=== PATIENT | male | born 1965 | race Caucasian/White ===

== ENCOUNTER → 2017-01-03 | Outpatient (CLI) | payer BC ==
--- NOTE | 2017-01-03 12:44 | DIAGNOSTIC IMAGING REPORT ---
ABD/PELVIS WITHOUT FOR STONE CT DOSE: 988.49 mGycm HISTORY: Flank pain ACUTE LEFT FLANK PAIN, GROSS HEMATURIA TECHNIQUE: Multiaxial CT images of the abdomen and pelvis were performed without the use of intravenous and oral contrast according to the standard department stone protocol. A dose lowering technique was utilized adhering to the principles of ALARA. COMPARISON STUDY: None. FINDINGS: Lung bases are clear. Liver spleen and pancreas appear unremarkable. Gallstones and sludge occupying the gallbladder lumen. Right kidney is negative for calcification or hydronephrosis. There is a small exophytic cyst measuring 6 mm posterior aspect lower pole right kidney. Left kidney shows mild fullness of the renal collecting system with a trace amount of perinephric infiltrative change. Mild fullness of the left ureter which extends to the left ureterovesical junction. There is a 1.5 mm calcification at the mid sacral level of the left ureter best seen image 137. There are at least 2 additional calcifications at and are slightly proximal to the left ureterovesical junction. These measure 3 and 2.5 mm respectively. A third calcification measuring 4 mm potentially is at the ureterovesical junction. No additional bladder calcifications are identified. The bowel pattern within the abdomen and pelvis is nonobstructive. There is a component of mild chronic sigmoid diverticulosis. There is no evidence for acute diverticulitis. IMPRESSION: 1. Several partial obstructing calcifications distal left ureter. 2. 3 calcifications are identified at the left ureteropelvic junction with a small fourth calcification at the distal left ureter at the mid sacral level. 3. Mild left hydroureteronephrosis. 4. Incidental note is made of gallstones and sludge within the gallbladder lumen. 5. Chronic sigmoid diverticulosis. The above report was generated using voice recognition software. It may contain grammatical, syntax or spelling errors. Electronically signed by: Dante Keys M.D. 01/03/2017 12:42 PM Dictated Date/Time: 01/03/2017 12:36 PM
== END | disposition home or self-care (01) ==
LOC: C.CTS 11:40
PROVIDERS: ATTEND Physician Assistant
DX: R10.30 Lower abdominal pain, unspecified (principal); R31.9 Hematuria, unspecified

== ENCOUNTER → 2017-01-05 | Outpatient (CLI) | payer BC ==
[2017-01-05 11:03] LABS: BLOOD UREA NITROGEN 21 mg/dl (7-18); BUN/CREATININE RATIO 17.1 (10-20); CALCIUM 9.6 mg/dl (8.5-10.1); CARBON DIOXIDE 28 mmol/L (21-32); CHLORIDE 112 mmol/L (98-107); GLUCOSE 84 mg/dl (70-99); POTASSIUM 4.3 mmol/L (3.5-5.1); SODIUM 143 mmol/L (136-145)
== END | disposition home or self-care (01) ==
LOC: C.LABBC 09:22
PROVIDERS: ATTEND Physician Assistant
DX: N20.0 Calculus of kidney (principal)

== ENCOUNTER → 2017-01-23 | Outpatient (CLI) | payer BC ==
--- NOTE | 2017-01-23 14:33 | DIAGNOSTIC IMAGING REPORT ---
ULTRASOUND KIDNEYS AND BLADDER CLINICAL HISTORY: Nephrolithiasis. COMPARISON STUDY: Abdominal CT dated 01/03/2017. TECHNIQUE: Real-time, grayscale, and color flow sonography of the kidneys and bladder is performed. Images are reviewed in the transverse and longitudinal planes. FINDINGS: Kidneys: The kidneys demonstrate mild cortical atrophy. The right kidney measures 10.3 x 5.5 x 6.4 cm and the left kidney measures 11.0 x 5.4 x 5.4 cm. There is no hydronephrosis. No shadowing renal calculi are identified. A 7 mm cyst is noted on the right. There is no sonographic evidence of solid renal mass lesion. No perinephric fluid is identified. Bladder: The bladder is decompressed and grossly unremarkable. Bilateral ureteral jets were seen. IMPRESSION: 1. The kidneys demonstrate mild cortical atrophy and are without hydronephrosis. Left-sided hydronephrosis has resolved from the 01/03/2017 examination. 2. No shadowing renal calculi are identified. 3. The bladder was decompressed and is grossly unremarkable. Electronically signed by: Robert Whitfield M.D. 01/23/2017 2:31 PM Dictated Date/Time: 01/23/2017 2:02 PM
== END | disposition home or self-care (01) ==
LOC: C.ULTRBC 13:37
PROVIDERS: ATTEND Urology
DX: N20.0 Calculus of kidney (principal)

== ENCOUNTER → 2017-04-19 | Outpatient (CLI) | payer BC ==
--- NOTE | 2017-04-19 10:06 | DIAGNOSTIC IMAGING REPORT ---
KUB CLINICAL HISTORY: N20.0 [id number] nephrocalcinosis COMPARISON STUDY: CT dated 01/03/2017 FINDINGS: The soft tissues, psoas shadows, renal outlines and intestinal gas pattern appear normal. There is no evidence for bowel obstruction. No abnormal abdominal calcifications are seen. Calcifications previously described at the left ureteropelvic junction are not identified currently. IMPRESSION: No significant nephrocalcinosis currently. 2. The 3 calcifications previously described at the left ureteropelvic junction are not identified on this study The above report was generated using voice recognition software. It may contain grammatical, syntax or spelling errors. Electronically signed by: Dante Keys M.D. 04/19/2017 10:05 AM Dictated Date/Time: 04/19/2017 9:59 AM
--- NOTE | 2017-04-19 10:26 | DIAGNOSTIC IMAGING REPORT ---
ULTRASOUND KIDNEYS AND BLADDER CLINICAL HISTORY: Nephrolithiasis. COMPARISON STUDY: Abdominal CT dated 01/03/2017. TECHNIQUE: Real-time, grayscale, and color flow sonography of the kidneys and bladder is performed. Images are reviewed in the transverse and longitudinal planes. FINDINGS: Kidneys: The kidneys are normal in size and echotexture. The right kidney measures 11.9 x 5.4 x 5.6 cm and the left kidney measures 10.7 x 5.0 x 6.1 cm. There is no hydronephrosis. No shadowing renal calculi are identified. Scattered subcentimeter cysts are noted. There is no sonographic evidence of solid renal mass lesion. No perinephric fluid is identified. Bladder: The prostate gland is enlarged and heterogeneous. There is median lobe hypertrophy. The bladder is normal in appearance. Bilateral ureteral jets were seen. IMPRESSION: 1. The kidneys are normal in size and without hydronephrosis. 2. Prostatomegaly. Electronically signed by: Robert Whitfield M.D. 04/19/2017 10:25 AM Dictated Date/Time: 04/19/2017 10:23 AM
== END | disposition home or self-care (01) ==
LOC: C.ULTR 09:30
PROVIDERS: ATTEND Urology
DX: N20.0 Calculus of kidney (principal)

== ENCOUNTER 2017-09-13 06:53 | Emergency (ER) | payer BC, OTHER ==
[~2017-09-13] VITALS: Ht 175.3 cm; Wt 108.6 kg
[2017-09-13 06:57] VITALS: TEMP 37; Ht 175.3 cm; Wt 108.6 kg
[2017-09-13] MEDS ORDERED: LORAZEPAM 1 MG TAB SL STA (07:35)
[2017-09-13] MEDS ORDERED: LORA-741 PO (07:37)
[2017-09-13] MEDS ORDERED: FLM4 PO (07:37)
[2017-09-13] MEDS ORDERED: ZOLP10TA PO (07:37)
[2017-09-13] MEDS ORDERED: SERT25TA PO (07:37)
[2017-09-13 08:06] LABS: BASO % 0.5 %; BASO ABS # 0.06 K/uL (0-0.2); EOS % 0.6 %; EOS ABS # 0.07 K/uL (0-0.5); HEMATOCRIT 47.4 % (42-52); HEMOGLOBIN 16.3 g/dL (14.0-18.0); IG# 0.04 K/uL (0.00-0.02); LYMPH % 26.2 %; LYMPH ABS # 2.95 K/uL (1.2-3.4); MEAN CELL VOLUME 87.6 fL (80-100); MEAN CORPUSCULAR HEMOGLOBIN 30.1 pg (25-34); MEAN CORPUSCULAR HGB CONC 34.4 g/dl (32-36); MEAN PLATELET VOLUME 8.8 fL (7.4-10.4); MONO % 9.6 %; MONO ABS # 1.08 K/uL (0.11-0.59); NEUT % 62.7 %; NEUT ABS # 7.04 K/uL (1.4-6.5); PLATELET COUNT 153 K/uL (130-400); RED CELL DISTRIBUTION WIDTH CV 13.8 % (11.5-14.5); WHITE BLOOD COUNT 11.24 K/uL (4.8-10.8)
[2017-09-13 08:17] LABS: INR 0.9 (0.9-1.1); PTT PATIENT 25.7 SECONDS (21.0-31.0)
[2017-09-13 08:26] LABS: ALBUMIN 3.5 gm/dl (3.4-5.0); ALT/SGPT 28 U/L (12-78); BLOOD UREA NITROGEN 15 mg/dl (7-18); CALCIUM 9.4 mg/dl (8.5-10.1); CARBON DIOXIDE 23 mmol/L (21-32); CREATININE 1.25 mg/dl (0.60-1.40); GLUCOSE 103 mg/dl (70-99); POTASSIUM 4.2 mmol/L (3.5-5.1); SODIUM 138 mmol/L (136-145)
[2017-09-13 08:31] LABS: ALKALINE PHOSPHATASE 100 U/L (45-117); AST/SGOT 11 U/L (15-37); CKMB < 0.5 ng/ml (0.5-3.6)
[2017-09-13] MEDS ORDERED: OPTIRAY 320 IV PRN (08:45)
[2017-09-13 09:07] VITALS: O2SAT 95
[2017-09-13 09:09] LABS: INFLUENZA B ANTIGEN Neg for Influ B (NEG)
--- NOTE | 2017-09-13 10:02 | DIAGNOSTIC IMAGING REPORT ---
CT ANGIOGRAM OF THE CHEST CLINICAL HISTORY: Atypical chest pain. COMPARISON STUDY: No priors. TECHNIQUE: Following the IV administration of 94 cc of Optiray 320, CT angiogram of the chest was performed from the upper abdomen to the thoracic inlet utilizing the pulmonary embolus protocol. Images are reviewed in the axial, sagittal, and coronal planes. 3-D MIPS images are created and assessed. IV contrast was administered without complication. A dose lowering technique was utilized adhering to the principles of ALARA. CT DOSE: 590.41 mGy.cm FINDINGS: Thyroid: Imaged portions of the thyroid gland are normal in size and attenuation. Thoracic aorta: The thoracic aorta is normal in caliber and demonstrates standard 3-vessel arch anatomy. No dissection is seen. Pulmonary vasculature: The pulmonary trunk is normal in caliber. There are filling defects identified within segmental and subsegmental branches of the left lower lobe pulmonary artery consistent with pulmonary emboli. No central pulmonary embolus is seen. Heart: The heart is top normal in size and without pericardial effusion. Lungs and pleural spaces: There are trace pleural effusions, left larger than right. A focus of subpleural consolidation in the left lower lobe as seen on image #86. This likely represents a small pulmonary infarct. The trachea trachea is clear. Trace fluid is seen layering within the mainstem bronchi. Mediastinum: A right paratracheal node on image #219 measures 11 mm in short axis. Additional subcentimeter mediastinal nodes are identified. Christine: Clear. Axillae: There is no axillary lymphadenopathy. Upper abdomen: There are numerous layering calcified gallstones. A tiny hiatal hernia is identified. Skeletal structures: No lytic or blastic bony lesions are seen. IMPRESSION: 1. Segmental and subsegmental pulmonary emboli are identified within branches of the left lower lobe pulmonary. 2. Trace pleural effusions. 3. A small focus of wedge-shaped subpleural consolidation at the left lung base likely represents a pulmonary infarct given the presence of pulmonary embolus in this territory. An infectious/inflammatory pneumonitis is considered less likely. 4. Cholelithiasis. 5. Additional findings as above. Electronically signed by: Robert Whitfield M.D. 09/13/2017 10:00 AM Dictated Date/Time: 09/13/2017 9:53 AM
--- NOTE | 2017-09-13 10:40 | EMERGENCY ROOM VISIT NOTE ---
ED Visit Note First contact with patient: 07:00 The patient was seen and examined with Laith Arceo PA-C. I agree with the history, physical and findings. Please see the note for disposition and details. The patient had a positive d-dimer. He underwent CT imaging. He was found to have a small infarct and pulmonary emboli. The patient was hemodynamically stable. His risk factors were negative. The patient had no clots in his lower legs. He was not hypoxic. He was able to ambulate without difficulty. He was not requiring narcotics. Consultation was made with internal medicine. recommended outpatient treatment given his lack of criteria for inpatient treatment. The patient had his case reviewed with the pharmacy and Xarelto was elected. The case and I had a long discussion with the patient. He will be treated with Xarelto. Oxycodone will be used for pain management. He will have a close follow-up which was arranged by case management. If he worsens in any way he will be back to the ER. I gave my usual and customary discussion regarding this issue. Patient and significant other were educated. They are pleased with the ER treatment and were discharged in stable condition.
--- NOTE | 2017-09-13 11:50 | DIAGNOSTIC IMAGING REPORT ---
BILATERAL LOWER EXTREMITY VENOUS DOPPLER CLINICAL HISTORY: PE, concern for DVT COMPARISON STUDY: No previous studies for comparison. TECHNIQUE: Sonography of the deep venous system of the bilateral lower extremities was performed. Compression and augmentation were evaluated. FINDINGS: The bilateral common femoral, superficial femoral and popliteal veins were compressible. Augmentation was normal. Flow was shown within the deep calf vessels. There are small bilateral popliteal cysts. IMPRESSION: 1. No evidence of deep venous thrombus within the bilateral lower extremities. 2. Small bilateral popliteal cysts. Electronically signed by: Vicente Lam M.D. 09/13/2017 11:49 AM Dictated Date/Time: 09/13/2017 11:47 AM
[2017-09-13] MEDS ORDERED: XRL15 PO (13:25)
--- NOTE | 2017-09-13 13:25 | EMERGENCY ROOM VISIT NOTE ---
History First contact with patient: 07:00 Chief Complaint: RIB PAIN Stated Complaint: LEFT SIDED RIB PAIN History of Present Illness The patient is a 52 year old male who presents to the Emergency Room via private vehicle accompanied by female "left-sided rib pain". The patient states that he has been sick the past week, notes that he has been coughing a little bit and having some congestion in the chest area. He notes that he felt quite ill. He then noticed this morning with complaints of that he developed pain on the left side of his chest last ribs. He notes it is worse by pressing , and worse with lying down. It is also worse with a deep breath. He has been trying to self treat this with DayQuil and cough drops. He notes that he has had fatigue, chills, sweats, sore throat intermittently. Mild cough and nausea. He notes that he travels only 30 minutes to work, and no sick contacts he is aware of. He notes no smoking, and does not drink alcohol. He denies illicit drug use. No risk factors for PE identified. Review of Systems A complete 10-point Review of Systems was discussed with the patient, with pertinent positives and negatives listed in the History of Present Illness. All remaining Review of Systems questions can be considered negative unless otherwise specified. Past Medical/Surgical History No pertinent. Social History Smoking Status: Never Smoker Pt. lives locally. Current/Historical Medications Scheduled Rivaroxaban (Xarelto), 1 TAB PO Q12 Sertraline (Zoloft), 25 MG PO DAILY Tamsulosin HCl (Tamsulosin HCl), 4 MG PO DAILY Zolpidem Tartrate (Ambien), 10 MG PO HS Scheduled PRN Lorazepam (Ativan), 0.5 MG PO TID PRN for Anxiety Oxycodone Ir (Roxicodone Ir), 1-2 TAB PO Q4H PRN for Pain Physical Exam Vital Signs Date Time Temp Pulse Resp B/P (MAP) Pulse Ox O2 Delivery O2 Flow Rate FiO2 09/13/17 15:30 78 18 126/77 96 09/13/17 13:31 116/71 09/13/17 13:13 77 96 09/13/17 13:01 114/81 09/13/17 12:45 114/75 09/13/17 11:08 69 17 98 09/13/17 11:01 134/88 09/13/17 10:38 75 19 97 09/13/17 10:31 135/84 09/13/17 10:08 67 18 96 09/13/17 10:01 129/80 09/13/17 09:57 131/79 09/13/17 09:08 64 17 94 09/13/17 09:07 95 Room Air 09/13/17 09:04 75 09/13/17 09:03 71 18 94 09/13/17 09:02 130/83 09/13/17 06:57 37.0 78 18 111/84 98 Room Air Physical Exam VITAL SIGNS - Vital signs and nursing notes were reviewed. His vital signs are stable. GENERAL -52-year-old male appearing his stated age who is in no acute distress. Communicates well with provider and answers questions appropriately. SKIN - Without rashes. No meningeal or petechial rash. HEAD - NC/AT. EYES - PERRL with EOMI bilaterally. Sclera anicteric. EARS - No deformities of external structures noted on gross examination bilaterally. NOSE - Midline and without cyanosis. No epistaxis or purulent drainage noted. MOUTH/OROPHARYNX - Without perioral cyanosis. NECK - Neck with FROM. Supple to palpation. No nuchal rigidity. LUNGS - Chest wall symmetric without accessory muscle use, intercostals retractions, or central cyanosis. Normal vesicular breath sounds CTA B/L. No wheezes, rales, or rhonchi appreciated. L sided rib tenderness. CARDIAC - RRR with S1/S2. No murmur, rubs, or gallops appreciated. ABDOMEN - Abdominal contour normal without pulsations or visible masses. BS normoactive all four quadrants. No tenderness, palpable masses, hepatosplenomegaly, or ascites noted. EXTREMITIES - No clubbing or peripheral cyanosis. No pretibial edema present. + 5/5 strength noted in UE/LE bilaterally. NEUROLOGIC - Cranial nerves II through XII grossly intact. Sensory intact to light touch throughout. PSYCH - A&O, and cooperates fully with examiner. Pt is very pleasant and interacts well with examiner. Medical Decision & Procedures ER Provider Diagnostic Interpretation: [~ rep ct add3]] CT ANGIOGRAM OF THE CHEST CLINICAL HISTORY: Atypical chest pain. COMPARISON STUDY: No priors. TECHNIQUE: Following the IV administration of 94 cc of Optiray 320, CT angiogram of the chest was performed from the upper abdomen to the thoracic inlet utilizing the pulmonary embolus protocol. Images are reviewed in the axial, sagittal, and coronal planes. 3-D MIPS images are created and assessed. IV contrast was administered without complication. A dose lowering technique was utilized adhering to the principles of ALARA. CT DOSE: 590.41 mGy.cm FINDINGS: Thyroid: Imaged portions of the thyroid gland are normal in size and attenuation. Thoracic aorta: The thoracic aorta is normal in caliber and demonstrates standard 3-vessel arch anatomy. No dissection is seen. Pulmonary vasculature: The pulmonary trunk is normal in caliber. There are filling defects identified within segmental and subsegmental branches of the left lower lobe pulmonary artery consistent with pulmonary emboli. No central pulmonary embolus is seen. Heart: The heart is top normal in size and without pericardial effusion. Lungs and pleural spaces: There are trace pleural effusions, left larger than right. A focus of subpleural consolidation in the left lower lobe as seen on image #86. This likely represents a small pulmonary infarct. The trachea trachea is clear. Trace fluid is seen layering within the mainstem bronchi. Mediastinum: A right paratracheal node on image #219 measures 11 mm in short axis. Additional subcentimeter mediastinal nodes are identified. Christine: Clear. Axillae: There is no axillary lymphadenopathy. Upper abdomen: There are numerous layering calcified gallstones. A tiny hiatal hernia is identified. Skeletal structures: No lytic or blastic bony lesions are seen. IMPRESSION: 1. Segmental and subsegmental pulmonary emboli are identified within branches of the left lower lobe pulmonary. 2. Trace pleural effusions. 3. A small focus of wedge-shaped subpleural consolidation at the left lung base likely represents a pulmonary infarct given the presence of pulmonary embolus in this territory. An infectious/inflammatory pneumonitis is considered less likely. 4. Cholelithiasis. 5. Additional findings as above. Electronically signed by: Robert Whitfield M.D. 09/13/2017 10:00 AM Dictated Date/Time: 09/13/2017 9:53 AM BILATERAL LOWER EXTREMITY VENOUS DOPPLER CLINICAL HISTORY: PE, concern for DVT COMPARISON STUDY: No previous studies for comparison. TECHNIQUE: Sonography of the deep venous system of the bilateral lower extremities was performed. Compression and augmentation were evaluated. FINDINGS: The bilateral common femoral, superficial femoral and popliteal veins were compressible. Augmentation was normal. Flow was shown within the deep calf vessels. There are small bilateral popliteal cysts. IMPRESSION: 1. No evidence of deep venous thrombus within the bilateral lower extremities. 2. Small bilateral popliteal cysts. Electronically signed by: Vicente Lam M.D. 09/13/2017 11:49 AM Dictated Date/Time: 09/13/2017 11:47 AM Laboratory Results 09/13/17 07:55 Red Blood Count 5.41, Mean Corpuscular Volume 87.6, Mean Corpuscular Hemoglobin 30.1, Mean Corpuscular Hemoglobin Concent 34.4, Mean Platelet Volume 8.8, Neutrophils (%) (Auto) 62.7, Lymphocytes (%) (Auto) 26.2, Monocytes (%) (Auto) 9.6, Eosinophils (%) (Auto) 0.6, Basophils (%) (Auto) 0.5, Neutrophils # (Auto) 7.04, Lymphocytes # (Auto) 2.95, Monocytes # (Auto) 1.08, Eosinophils # (Auto) 0.07, Basophils # (Auto) 0.06 09/13/17 07:55 Test 09/13/17 07:55 09/13/17 08:43 09/13/17 10:58 White Blood Count 11.24 K/uL (4.8-10.8) Red Blood Count 5.41 M/uL (4.7-6.1) Hemoglobin 16.3 g/dL (14.0-18.0) Hematocrit 47.4 % (42-52) Mean Corpuscular Volume 87.6 fL (80-100) Mean Corpuscular Hemoglobin 30.1 pg (25-34) Mean Corpuscular Hemoglobin Concent 34.4 g/dl (32-36) Platelet Count 153 K/uL (130-400) Mean Platelet Volume 8.8 fL (7.4-10.4) Neutrophils (%) (Auto) 62.7 % Lymphocytes (%) (Auto) 26.2 % Monocytes (%) (Auto) 9.6 % Eosinophils (%) (Auto) 0.6 % Basophils (%) (Auto) 0.5 % Neutrophils # (Auto) 7.04 K/uL (1.4-6.5) Lymphocytes # (Auto) 2.95 K/uL (1.2-3.4) Monocytes # (Auto) 1.08 K/uL (0.11-0.59) Eosinophils # (Auto) 0.07 K/uL (0-0.5) Basophils # (Auto) 0.06 K/uL (0-0.2) RDW Standard Deviation 44.0 fL (36.4-46.3) RDW Coefficient of Variation 13.8 % (11.5-14.5) Immature Granulocyte % (Auto) 0.4 % Immature Granulocyte # (Auto) 0.04 K/uL (0.00-0.02) Prothrombin Time 9.7 SECONDS (9.0-12.0) Prothromb Time International Ratio 0.9 (0.9-1.1) Activated Partial Thromboplast Time 25.7 SECONDS (21.0-31.0) Partial Thromboplastin Ratio 1.0 D-Dimer 2430 ug/L FEU (0-500) Anion Gap 8.0 mmol/L (3-11) Est Creatinine Clear Calc Drug Dose 84.0 ml/min Estimated GFR () 76.2 Estimated GFR (Non- 65.8 BUN/Creatinine Ratio 12.3 (10-20) Calcium Level 9.4 mg/dl (8.5-10.1) Magnesium Level 2.1 mg/dl (1.8-2.4) Total Bilirubin 0.6 mg/dl (0.2-1) Aspartate Amino Transf (AST/SGOT) 11 U/L (15-37) Alanine Aminotransferase (ALT/SGPT) 28 U/L (12-78) Alkaline Phosphatase 100 U/L (45-117) Total Creatine Kinase 50 U/L (39-308) Creatine Kinase MB < 0.5 ng/ml (0.5-3.6) Creatine Kinase MB Ratio (0-3.0) Troponin I < 0.015 ng/ml (0-0.045) Total Protein 8.0 gm/dl (6.4-8.2) Albumin 3.5 gm/dl (3.4-5.0) Globulin 4.5 gm/dl (2.5-4.0) Albumin/Globulin Ratio 0.8 (0.9-2) Influenza Type A Antigen Neg for Influ A (NEG) Influenza Type B Antigen Neg for Influ B (NEG) Folate 15.46 ng/mL (>5.38) Medications Administered Medications (Trade) Dose Ordered Sig/Zev Route Start Time Stop Time Status Last Admin Dose Admin Lorazepam (Ativan Tab) 1 mg NOW STAT SL 09/13/17 07:35 09/13/17 07:36 DC 09/13/17 07:39 1 MG Rivaroxaban (Xarelto Tab) 15 mg NOW STAT PO 09/13/17 14:56 09/13/17 14:57 DC 09/13/17 15:17 15 MG Medical Decision Patient was seen and evaluated as above in room A12. Review was performed of nursing notes and vital signs. Bedside EKG per my reveals normal sinus rhythm, rate of 68 bpm. No ectopy or ischemic change. After obtaining a thorough history and physical examination the above work up was performed. He presents to us today with left-sided rib pain. It is reproducible on exam. No trauma. He unfortunately is not a candidate to utilize the PERC rule to rule out pulmonary embolism. Therefore d-dimer was chosen. This was elevated and CT of the chest was performed. There are segmental and subsegmental pulmonary emboli with pleural effusion and pulmonary infarct. He also notes that the congestion that he is coughing up/expectorating is red tinged. I suspect this to be new. The patient was stable here. He did not require IV narcotics. He declined pain medication. The patient has no risk factors identified to have this. Therefore he did undergo hypercoagulable testing prior to and to coagulate. CBC reveals slight leukocytosis of 11.24. No anemia. Coags normal. Again d- dimer 2430. Metabolic panel reveals no evidence of emergent kidney or liver failure. Influenza negative. I did order heparin, and because of the pulmonary embolism, pleural effusion, patient presentation, as well as pulmonary infarct felt that medicine should be consulted for potential admission. I did discuss the case with Dr. Niraj Mckay. After speaking with him he felt the patient will be a good candidate for outpatient management with oral anticoagulation. Medical admission was declined. Heparin was canceled once medical admission wad declined. I discussed this with the patient. Numerous hours were then spent utilizing in-house pharmacy staff as well as numerus phone calls were placed to his pharmacy/ surrounding pharmacies by our pharmacy staff here, as well as identifying which medication as well as pharmacy would be able to be the cheapest for the patient as Xarelto can be quite expensive so as to help improve/maximize patient compliance. This medicine was chosen after a thorough discussion of benefit versus risk of utilizing heparin to Coumadin bridge versus the newer oral anticoagulants. He chose this as he did not want to do any Lovenox injections. I believe this is reasonable. After medical admission was declined, and the patient was able to have appropriate outpatient medications after arranging it here for the patient as well as ensuring he had a family doctor follow up on Saturday of this coming week for recheck he was discharged from the emergency department. Prior to this a significant amount of time was spent at bedside discussing with the patient potential alterations in lifestyle which may be warranted, interactions with the medication, and side effects of the medication. The patient was educated upon management, had questions answered prior to discharge, and was discharged home in good condition. Case was discussed with the attending physician. I attest that I have personally reviewed the patient medication list. I attest that I have reviewed the patient's blood pressure and it was found to be within normal limits. In the evaluation and treatment of this patient the following differential diagnoses were entertained: [place], PE, pericarditis, costochondritis, fracture, dislocation, among others. Impression Primary Impression: Pulmonary embolism Departure Information Dispostion Home / Self-Care Condition GOOD Prescriptions Oxycodone Ir (Roxicodone Ir) 5 Mg Tab 1-2 TAB PO Q4H Y for Pain, #18 TAB For Initial Treatment Prov: Laith Arceo PA-C 09/13/17 Rivaroxaban (Xarelto) 15 Mg Tab 1 TAB PO Q12 for 21 Days, #42 TABS Prov: Laith Arceo PA-C 09/13/17 Referrals Sinai Escobar CRNP (PCP) Patient Instructions My [facility], Rivaroxaban oral tablets Additional Instructions You were seen in the emergency department for pulmonary embolism. This is a blood clot in your left lung. At this time I do recommend Xarelto which is 1 tablet every 12 hours for 21 days with food. Please refer to the attached handout regarding information on this medication. Please no NSAIDs or alcohol with this. Please call your family doctor to have the follow-up for Saturday. As we discussed she will have increased pain on the left side of the rib as days go on. The pain medication he may not drive with but his oxycodone 1 tablet every 4-6 hours as needed. Please return with any new/concerning symptoms.
--- NOTE | 2017-09-13 13:56 | Medical Consult ---
Consultation Date of Consultation: Sep 13, 2017. Attending Physician: History of Present Illness 52 y/o M Hx BPH, anxiety - presents with acute onset L lateral pleuritic CP. Denies significant SOB or fevers. He has had a cough for a few days. The pt was sent for a CTA which revealed L lower lobe pulmonary emboli. He has not exhibited tachycardia, tachypnea, hypotension or intractable pain. He denies recent travel, previous PE or a history of a hypercoagulable disorder. Past Medical/Surgical History 1) Anxiety 2) BPH 3) Pulmonary emboli 09/13/17 Family History No history of PE/hypercoagulable disorder in family Social History Works in [employer] de[employer] of [employer] Smoking Status: Never Smoker Current Inpatient Medications Current Inpatient Medications Medications (Trade) Dose Ordered Sig/Zev Route Start Time Stop Time Status Last Admin Dose Admin Ioversol (Optiray 320) 100 ml UD PRN IV 09/13/17 08:45 09/17/17 08:44 Review of Systems Constitutional: No fever, No chills, No sweats Eyes: No worsening of vision ENT: No hearing loss, No nasal symptoms Respiratory: No cough, No sputum, No wheezing Cardiovascular: + chest pain (pleuritic), No PND Abdomen: No pain, No nausea, No vomiting Musculoskeletal: No joint pain Genitourinary - Male: No hematuria, No dysuria Neurologic: No memory loss, No paralysis, No weakness Psychiatric: No depression symptoms Endocrine: No fatigue Hematologic / Lymphatic: No abnormal bleeding/bruising Integumentary: No rash Allergic / Immunologic: No environmental allergies Physical Exam Date Time Temp Pulse Resp B/P (MAP) Pulse Ox O2 Delivery O2 Flow Rate FiO2 09/13/17 13:31 116/71 09/13/17 13:13 77 96 09/13/17 13:01 114/81 09/13/17 12:45 114/75 09/13/17 11:08 69 17 98 09/13/17 11:01 134/88 09/13/17 10:38 75 19 97 09/13/17 10:31 135/84 09/13/17 10:08 67 18 96 09/13/17 10:01 129/80 09/13/17 09:57 131/79 09/13/17 09:08 64 17 94 09/13/17 09:07 95 Room Air 09/13/17 09:04 75 09/13/17 09:03 71 18 94 09/13/17 09:02 130/83 09/13/17 06:57 37.0 78 18 111/84 98 Room Air General Appearance: WD/WN, no apparent distress Head: normocephalic Eyes: normal inspection ENT: normal ENT inspection, pharynx normal Neck: supple, no JVD Respiratory/Chest: chest non-tender, lungs clear, normal breath sounds Cardiovascular: regular rate, rhythm, no edema, no gallop Abdomen/GI: normal bowel sounds, non tender, soft Back: normal inspection, no CVA tenderness Extremities/Musculoskelatal: normal inspection, no calf tenderness Neurologic/Psych: housekeeping staff II-XII nml as tested, no motor/sensory deficits, alert, oriented x 3 Skin: normal color Laboratory Results Last 24 Hours Test 09/13/17 07:55 09/13/17 08:43 09/13/17 10:58 White Blood Count 11.24 K/uL Red Blood Count 5.41 M/uL Hemoglobin 16.3 g/dL Hematocrit 47.4 % Mean Corpuscular Volume 87.6 fL Mean Corpuscular Hemoglobin 30.1 pg Mean Corpuscular Hemoglobin Concent 34.4 g/dl Platelet Count 153 K/uL Mean Platelet Volume 8.8 fL Neutrophils (%) (Auto) 62.7 % Lymphocytes (%) (Auto) 26.2 % Monocytes (%) (Auto) 9.6 % Eosinophils (%) (Auto) 0.6 % Basophils (%) (Auto) 0.5 % Neutrophils # (Auto) 7.04 K/uL Lymphocytes # (Auto) 2.95 K/uL Monocytes # (Auto) 1.08 K/uL Eosinophils # (Auto) 0.07 K/uL Basophils # (Auto) 0.06 K/uL RDW Standard Deviation 44.0 fL RDW Coefficient of Variation 13.8 % Immature Granulocyte % (Auto) 0.4 % Immature Granulocyte # (Auto) 0.04 K/uL Prothrombin Time 9.7 SECONDS Prothromb Time International Ratio 0.9 Activated Partial Thromboplast Time 25.7 SECONDS Partial Thromboplastin Ratio 1.0 D-Dimer 2430 ug/L FEU Sodium Level 138 mmol/L Potassium Level 4.2 mmol/L Chloride Level 107 mmol/L Carbon Dioxide Level 23 mmol/L Anion Gap 8.0 mmol/L Blood Urea Nitrogen 15 mg/dl Creatinine 1.25 mg/dl Est Creatinine Clear Calc Drug Dose 84.0 ml/min Estimated GFR () 76.2 Estimated GFR (Non- 65.8 BUN/Creatinine Ratio 12.3 Random Glucose 103 mg/dl Calcium Level 9.4 mg/dl Magnesium Level 2.1 mg/dl Total Bilirubin 0.6 mg/dl Aspartate Amino Transf (AST/SGOT) 11 U/L Alanine Aminotransferase (ALT/SGPT) 28 U/L Alkaline Phosphatase 100 U/L Total Creatine Kinase 50 U/L Creatine Kinase MB < 0.5 ng/ml Creatine Kinase MB Ratio Troponin I < 0.015 ng/ml Total Protein 8.0 gm/dl Albumin 3.5 gm/dl Globulin 4.5 gm/dl Albumin/Globulin Ratio 0.8 Influenza Type A Antigen Neg for Influ A Influenza Type B Antigen Neg for Influ B Folate 15.46 ng/mL Assessment & Plan 52 y/o M Hx BPH, anxiety - presents with acute onset L lateral pleuritic CP. Denies significant SOB or fevers. He has had a cough for a few days. The pt was sent for a CTA which revealed L lower lobe pulmonary emboli. He has not exhibited tachycardia, tachypnea, hypotension or intractable pain. He denies recent travel, previous PE or a history of a hypercoagulable disorder. The pt is a good candidate for outpt oral anticoagulation and will be DCd with Xarelto. He has been advised on outpt follow-up including hypercoag workup and consideration for occult malignancy workup. No changes have been made to his med regimen aside form the addition of an anticoagulant Total time for this consult including review pf labs, meds, imaging, records - discussion with pt and ER attending - 33 min
[2017-09-13] MEDS ORDERED: OXYC1TAB3 PO (14:53)
[2017-09-13] MEDS ORDERED: RIVAROXABAN TAB 15 MG TAB PO STA (14:56)
--- NOTE | 2017-09-13 15:02 | Pharmacy Progress Note ---
ED Pharmacist Progress Note Date of Service: Sep 13, 2017. Called [facility] pharmacy - co-pay for 1st 21 days for rivaroxaban will be $ 288. Patient has [place] [employer] insurance therefore also faxed separate prescription to [facility] to see if cost would be reduced. [facility] reported that co-pay would be the same. Provided verbal authorization to cancel the prescription at [facility]. Per Laith, patient has elected to use rivaroxaban, despite the higher co-pay. I provided a supplementary insurance card for rivaroxaban that must be activated by the patient - it may reduce co-pay to $0 if patient eligible.
[2017-09-13 15:30] VITALS: BP 126/77; PULSE 78; O2SAT 96
== END 2017-09-13 15:32 | disposition home or self-care (01) ==
LOC: C.EDB 06:54 → C.EDA 15:32
DX: I26.99 Other pulmonary embolism without acute cor pulmonale (principal); N40.0 Benign prostatic hyperplasia without lower urinary tract symptoms; F41.9 Anxiety disorder, unspecified; Z79.899 Other long term (current) drug therapy

== ENCOUNTER → 2017-09-18 | Outpatient (CLI) | payer OTHER ==
[~2017-09-18] MED LIST: FLM4 PO; LORA-741 PO; OXYC1TAB3 PO; SERT25TA PO; XRL15 PO; ZOLP10TA PO
--- NOTE | 2017-09-18 09:06 | DIAGNOSTIC IMAGING REPORT ---
R FOOT MIN 3 VIEWS ROUTINE CLINICAL HISTORY: 52 years-old Male presenting with M79.676 Great toe [id number]. TECHNIQUE: Frontal, oblique, and lateral views of the right foot were obtained. COMPARISON: None. FINDINGS: Osteophytosis at the first metatarsophalangeal joint. No joint space loss. No acute fracture or malalignment. Prominent enthesophyte at the insertion of the Achilles tendon and origin of the plantar fascia. No radiographic soft tissue abnormality. IMPRESSION: 1. Degenerative changes of the first metatarsophalangeal joint. 2. Additional degenerative changes as above. 3. No acute osseous injury. Electronically signed by: Ac Zuniga M.D. 09/18/2017 9:04 AM Dictated Date/Time: 09/18/2017 9:03 AM
== END | disposition home or self-care (01) ==
LOC: C.RADBC 08:47
PROVIDERS: ATTEND Family Medicine Adult Medicine
DX: M79.676 Pain in unspecified toe(s) (principal)

== ENCOUNTER → 2017-09-27 | Outpatient (CLI) | payer OTHER ==
--- NOTE | 2017-09-27 10:54 | DIAGNOSTIC IMAGING REPORT ---
(RENAL)RETROPERITON COMP CLINICAL HISTORY: 52 years-old Male presenting with N20.0 Nephrolithiasis. TECHNIQUE: Real-time grayscale and limited color Doppler ultrasound imaging of the kidneys and bladder was performed. COMPARISON: 04/19/2017. FINDINGS: Right kidney: Several small cysts evident, the largest measuring 1.2 cm. Otherwise normal renal parenchyma. Right kidney measures 11.1 cm. No hydronephrosis. No convincing evidence of calculus or mass. Left kidney: 1.6 cm simple appearing parapelvic cyst at the lower pole. Left kidney measures 10.9 cm. No hydronephrosis. No convincing evidence of calculus or mass. Bladder: Normal. Bilateral ureteral jets present. Other: Prostatomegaly. The prostate measures 5.2 x 4.7 cm in maximal transverse dimensions. IMPRESSION: 1. Few simple renal cysts. No hydronephrosis or evidence of obstruction. No sonographically evident renal calculi. 2. Prostatomegaly. Electronically signed by: Ac Zuniga M.D. 09/27/2017 10:53 AM Dictated Date/Time: 09/27/2017 10:50 AM
== END | disposition home or self-care (01) ==
LOC: C.ULTR 09:59
PROVIDERS: ATTEND Urology
DX: N20.0 Calculus of kidney (principal)

== ENCOUNTER 2023-09-27 13:29 | Inpatient (IN) ==
[2023-09-27 14:15] LABS: Basophils % (auto) 0.4 %; Eosinophils # (auto) 0.04 K/uL (0.00-0.50); Eosinophils % (auto) 0.2 %; Hematocrit (blood only) 48.6 % (42.0-52.0); Immature Granulocytes # (auto) 0.19 K/uL (0.01-0.20); Immature Granulocytes % (auto) 0.8 %; Lymphocytes # (auto) 3.01 K/uL (1.20-3.40); Lymphocytes % (auto) 13.3 %; Mean Corpuscular Hgb Conc 32.9 g/dL (32.0-36.0); Mean Platelet Volume 8.6 fL (9.4-12.4); Monocytes # (auto) 1.87 K/uL (0.11-0.59); Monocytes % (auto) 8.2 %; Neutrophils # (auto) 17.46 K/uL (1.40-6.50); Neutrophils % (auto) 77.1 %; Platelet Count 237 K/uL (130-400); RDW Coefficient of Variation 13.3 % (11.5-14.5); RDW Standard Deviation 43.2 fL (36.4-46.3); Red Blood Count 5.52 M/uL (4.70-6.10); White Blood Count 22.67 K/ul (4.8-10.8)
[2023-09-27 14:36] LABS: Albumin Globulin Ratio 0.9 (0.9-2); Albumin Level 3.8 gm/dl (3.4-5.0); BUN Creatinine Ratio 16.2 (10-20); Bilirubin,Total 1.4 mg/dl (0.2-1.0); Calcium 10.5 mg/dl (8.6-10.3); Creatinine Clr Calc Pharmacy 56.2 ml/min; Est GFR (African American) 49.3 ml/min; Est GFR (Non-African American) 42.6 ml/min; Globulin 4.4 gm/dl (2.5-4.0); Potassium 4.3 mmol/L (3.5-5.1); Total Protein 8.2 gm/dl (6.0-8.3)
--- NOTE | 2023-09-27 14:44 | XRay Report ---
XR chest 1V not portable CLINICAL HISTORY: Cough. COMPARISON STUDY: Chest CT September 13, 2017. FINDINGS: Lung volumes are normal. Lungs are clear. There is no pneumothorax or pleural effusion. Car diac size is normal. Mediastinal contours are normal. There is no evidence for pulmonary edema. IMPRESSION: No acute cardiopulmonary findings. ACT 112: Negative or not required by law. Electronically signed by: Vicente Lam M.D. 09/27/2023 2:42 PM
[2023-09-27 14:50] LABS: Influenza A virus by PCR Negative (Neg); Influenza B virus by PCR Negative (Neg); RSV by PCR Negative (Neg); SARS CoV2 RNA(COVID-19) Ceph NEGATIVE (Negative)
--- NOTE | 2023-09-27 16:11 | Emergency Department Note ---
Impression & Plan Acute cholecystitis, Cholelithiasis, Diverticulitis, Acute dehydration ED Provider Note NAME: UMA CABALLERO AGE: 58 SEX: M : 1965 ARRIVES VIA: Walk-In INFORMANT: [Patient], ED PROVIDER(S): [Andrea Chavez MD] CHIEF COMPLAINT: Outpatient referral, abdominal discomfort, URI symptoms, dehydration MEDICAL DECISION MAKING: Patient presents due to concern for URI symptoms crampy abdominal discomfort which is no longer present but does have epigastric and right upper quadrant pain. IV was established and blood work was obtained. Tickborne disease testing ordered in addition to IV fluids. The patient does have a white count of 22. CT abdomen pelvis noncontrast ordered with creatinine slightly above parents patient's baseline of 1.4 currently 1.7. Chest x-ray clear. Blood cultures also ordered Bilirubin 1.4. COVID flu RSV and mono negative. Patient CT of the abdomen pelvis shows concern for acute cholecystitis as well as diverticulitis. The patient was ordered Cipro and Flagyl IV. Patient was informed of the findings. I did speak with the on-call general surgeon Dr. Mayers and the patient was admitted by medicine service Dr. Marcelino. Discussion w/ other healthcare providers: Dr. Mayers with general surgery Dr. Marcelino inpatient medicine service Prior /Outside records reviewed: I reviewed a primary care visit from earlier today from Ed Berumen. The patient for acute URI and dehydration.. Weight reportedly down 10 pounds not eating or drinking. Differential diagnosis: Appendicitis, testicular torsion, UTI, diverticulitis, obstruction, renal colic, mesenteric adenitis, enteririts, PUD, pancreatitis, biliary pathology, hernia, volvulus, constipation, as well as other pathologies were considered. Diagnostics, as interpreted by me: ECG: Cardiac monitoring: An order was placed for continuous cardiac monitoring. The monitor shows a rate of 75 with sinus rhythm. [Patient was placed on pulse oximetry] Medical decision rules: [none] Imaging studies: [I informally interpreted the patient's Chest x-ray does not show obvious pneumonia or pneumothorax with formal report to follow.] [] HPI: Patient presents as referral from his primary care office for IV fluids. Patient reportedly has had 2 weeks of feeling fatigued. The patient over the last 3 days had some abdominal discomfort described as cramping and diffuse but seem to localize to the left side. The patient did have 2 episodes of nonbloody emesis yesterday. Patient denies any alcohol tobacco or drug use. Patient has had dry nonproductive cough without chest pain or shortness of breath. Patient denies any leg swelling dysuria or rash. The patient denies any current sore throat but 2 weeks ago may have had a bit of sore throat which is since resolved. Patient did try to take some Pepto-Bismol yesterday but without improvement. Patient was seen his primary care doctor's office today did have COVID and flu testing completed which was negative the patient was referred here for IV fluids PAST MEDICAL HISTORY: [See Below] PAST SURGICAL HISTORY: [See Below] SOCIAL HISTORY: [See Below] HOME MEDICATIONS: [See Below] ALLERGIES: [See Below] VITALS: [See Below] PHYSICAL EXAMINATION: GENERAL: NAD, non-toxic. EYE EXAM: Normal conjunctiva. PERRL, no anisocoria and EOM's grossly intact w/o pain. OROPHARYNX: Dry mucus membranes, grossly normal dentition. Posterior pharynx is clear with no tonsillar uvular deviation or swelling. NECK: Trachea midline, no stridor. [Supple, no nuchal rigidity, no adenopathy, non-tender. No signs of meningismus. FROM of the neck with good chin to chest and neck extension.] LUNGS: Clear to auscultation. Normal chest wall mechanics. HEART: NSR, no MRG. ABDOMEN: Abdomen soft, epigastric and right upper quadrant pain, no masses, no rebound or guarding. BACK: No CVA TTP. SKIN: No rashes and no bruising. UPPER EXTREMITIES: Upper extremities are grossly normal. LOWER EXTREMITIES: Grossly normal, no edema. NEURO EXAM: A&O x3, cranial nerves II-XII grossly intact, normal speech, moves all 4 extremities. Past Med/Surg History Medical History History of kidney stones reason for flomax History of pulmonary embolism hx of ~2018 --was on blood thinners, then stopped Tubular adenoma of colon Renal cyst, acquired Surgical History History of colonoscopy History of tonsillectomy and adenoidectomy History of wisdom tooth extraction H/O right wrist surgery ligament repair at [facility] [place] Family History Grandmother Diabetes Grandfather Diabetes Father Stroke Other No family history of adverse response to anesthesia Social History Smoking Status: Never smoker Second Hand Exposure: No; Do You Dip or Chew Tobacco: No; Hx Alcohol Use: No Hx Substance Use: No Preferred Language: Yi Communication Ability: Effective Visual Impairment: Limited Hearing Ability: Normal Associate Professor Of Economics Required: No Beliefs That Will Affect Care: None marital status: Current Living Situation: Spouse current occupational status: employed 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 [employer] How many Children do You have: 0 Other Information That Helps Us Care for You: No Feels Safe at Home: Yes Safety Concerns: Feels Safe At This Time Childhood Exposure to Second-Hand Smoke: Yes Diet: regular caffeine: Yes (once in awhile will have soda) Dental Care, Regularly: No Physical Activity Frequency: Daily Seatbelt Use: sometimes Sunscreen Use: Yes Assistive Devices: None Allergies Allergies Allergy/AdvReac Type Severity Reaction Status Date / Time Penicillins Allergy Unknown CAN'T Verified 09/27/23 17:20 REMEMBER Home Meds Home Medications Medication Instructions Recorded Confirmed melatonin 5 mg tablet 5 mg PO HS PRN Sleep 12/20/20 09/27/23 Previous Rx's Medication Instructions Recorded tamsulosin 0.4 mg capsule 0.4 mg PO QAM #90 caps 02/27/23 sertraline 50 mg tablet 50 mg PO DAILY #90 tabs 04/08/23 zolpidem 10 mg tablet 10 mg PO HS #90 tabs 07/19/23 Results & Data (ED) Vital Signs Vital Signs - 24 hr 09/27/23 13:29 09/27/23 13:29 09/27/23 16:18 Temperature 36.6 C Temperature Source Temporal Artery Scan Pulse Rate 87 Pulse Rate [Apical] 70 Pulse Rate from SpO2 Sensor Pulse Rhythm [Apical] Regular Pulse Strength [Apical] Normal Respiratory Rate 18 18 18 Respiratory Effort / Characteristics Non-Labored Spontaneous Respiratory Depth Normal Respiratory Pattern Regular Blood Pressure 117/80 Blood Pressure [Left Arm] 124/85 Blood Pressure Mean 92 Blood Pressure Mean [Left Arm] 98 Blood Pressure Position [Left Arm] Sitting Pulse Oximetry 99 99 Oxygen Delivery Method Room Air Sepsis Recent Fever Within 48 Hours No Sepsis New/Unexplained Change in Mental Status N/A Sepsis Action Taken by Nursing No Action Required 09/27/23 16:23 09/27/23 16:30 09/27/23 17:01 Temperature Temperature Source Pulse Rate 71 66 75 Pulse Rate [Apical] Pulse Rate from SpO2 Sensor 67 Pulse Rhythm [Apical] Pulse Strength [Apical] Respiratory Rate 20 20 Respiratory Effort / Characteristics Respiratory Depth Respiratory Pattern Blood Pressure 115/79 122/79 Blood Pressure [Left Arm] Blood Pressure Mean 91 93 Blood Pressure Mean [Left Arm] Blood Pressure Position [Left Arm] Pulse Oximetry 98 99 Oxygen Delivery Method Room Air Room Air Sepsis Recent Fever Within 48 Hours Sepsis New/Unexplained Change in Mental Status Sepsis Action Taken by Nursing 09/27/23 17:30 09/27/23 18:00 09/27/23 18:05 Temperature 37.4 C Temperature Source Oral Pulse Rate 69 73 Pulse Rate [Apical] Pulse Rate from SpO2 Sensor 69 72 Pulse Rhythm [Apical] Pulse Strength [Apical] Respiratory Rate 18 14 Respiratory Effort / Characteristics Respiratory Depth Respiratory Pattern Blood Pressure 118/86 130/90 Blood Pressure [Left Arm] Blood Pressure Mean 96 103 Blood Pressure Mean [Left Arm] Blood Pressure Position [Left Arm] Pulse Oximetry 97 96 Oxygen Delivery Method Sepsis Recent Fever Within 48 Hours Sepsis New/Unexplained Change in Mental Status Sepsis Action Taken by Nursing 09/27/23 18:30 09/27/23 19:00 09/27/23 19:30 Temperature Temperature Source Pulse Rate 68 68 75 Pulse Rate [Apical] Pulse Rate from SpO2 Sensor 69 67 74 Pulse Rhythm [Apical] Pulse Strength [Apical] Respiratory Rate 14 14 22 Respiratory Effort / Characteristics Respiratory Depth Respiratory Pattern Blood Pressure 129/82 136/89 114/82 Blood Pressure [Left Arm] Blood Pressure Mean 97 104 92 Blood Pressure Mean [Left Arm] Blood Pressure Position [Left Arm] Pulse Oximetry 98 98 95 Oxygen Delivery Method Room Air Room Air Sepsis Recent Fever Within 48 Hours Sepsis New/Unexplained Change in Mental Status Sepsis Action Taken by [facility] Medications Current Medication List: was personally reviewed by me Laboratory Data Attestation: I reviewed the patient's lab results. 09/27/23 13:58 09/27/23 13:58 Lab Results 09/27/23 09/27/23 09/27/23 Range/Units 13:58 16:18 16:37 WBC 22.67 H (4.8-10.8) K/ul RBC 5.52 (4.70-6.10) M/uL Hgb 16.0 (14.0-18.0) g/dl Hct 48.6 (42.0-52.0) % MCV 88.0 (80.0-100.0) fL MCH 29.0 (25.0-34.0) pg MCHC 32.9 (32.0-36.0) g/dL RDW Std Deviation 43.2 (36.4-46.3) fL RDW Coeff of Vero 13.3 (11.5-14.5) % Plt Count 237 (130-400) K/uL MPV 8.6 L (9.4-12.4) fL Immature Gran % (Auto) 0.8 % Neut % (Auto) 77.1 % Lymph % (Auto) 13.3 % [place] % (Auto) 8.2 % Eos % (Auto) 0.2 % Baso % (Auto) 0.4 % Neut # (Auto) 17.46 H (1.40-6.50) K/uL Lymph # (Auto) 3.01 (1.20-3.40) K/uL [place] # (Auto) 1.87 H (0.11-0.59) K/uL Eos # (Auto) 0.04 (0.00-0.50) K/uL Baso # (Auto) 0.10 (0.00-0.20) K/uL Immature Gran # (Auto) 0.19 (0.01-0.20) K/uL Sodium 131 L (136-145) mmol/L Potassium 4.3 (3.5-5.1) mmol/L Chloride 98 (98-107) mmol/L Carbon Dioxide 23 (21-32) mmol/L Anion Gap 10 (3-11) BUN 28 H (6-23) mg/dl Creatinine 1.73 H (0.6-1.4) mg/dl Est Cr Clr Drug Dosing 56.2 ml/min Est GFR ( Amer) 49.3 ml/min Est GFR (Non-Af Amer) 42.6 ml/min BUN/Creatinine Ratio 16.2 (10-20) Glucose 99 (70-99(Fasting)) mg/dl Calcium 10.5 H (8.6-10.3) mg/dl Total Bilirubin 1.4 H (0.2-1.0) mg/dl AST 14 (13-39) U/L ALT 28 (7-52) U/L Alkaline Phosphatase 83 (34-104) U/L Total Protein 8.2 (6.0-8.3) gm/dl Albumin 3.8 (3.4-5.0) gm/dl Globulin 4.4 H (2.5-4.0) gm/dl Albumin/Globulin Ratio 0.9 (0.9-2) Procalcitonin 1.86 H (0-0.5) ng/ml Urine Color Dark Yellow Urine Appearance Turbid A (Clear) Urine pH 5.0 (4.5-7.5) Ur Specific [place] 1.025 (1.000-1.030) Urine Protein 1+ H (Negative) Urine Glucose (UA) Negative (Negative) Urine Ketones Trace H (Negative) Urine Blood 2+ H (Negative) Urine Nitrite Negative (Negative) Urine Bilirubin 1+ H (Negative) Urine Urobilinogen Negative (Negative) Ur Leukocyte Esterase Trace H (Negative) Urine WBC (Auto) 6-10 H (0-5) /hpf Urine RBC (Auto) 6-10 H (0-2) /hpf U Hyaline Cast (Auto) >20 H (0-2) /lpf U Epithel Cells (Auto) 11-20 H (0-2) /hpf Urine Bacteria (Auto) None Seen (None Seen) Granular Casts Present A (None Prsent) /lpf Anaplasma Smear See Comment [place] Smear See Comment Lyme Disease Screen Negative (Negative) SARS-CoV-2 (PCR) NEGATIVE (Negative) Monoscreen Negative (Negative) Influenza Type A (PCR) Negative (Neg) Influenza Type B (PCR) Negative (Neg) RSV (RT-PCR) Negative (Neg) Group A Strep (PCR) NOT DETECTED (NotDetected) Administered Medications Sodium Chloride (Nss) 1,000 mls @ 100 mls/hr IV .Q10H RAMONA Stop: 10/27/23 19:44 Last Admin: 09/27/23 23:21 Dose: 100 mls/hr Documented By: KYS Discontinued Medications Sodium Chloride (Nss) 1,000 mls @ 999 mls/hr IV .Q1H1M ONE Stop: 09/27/23 17:35 Last Infusion: 09/27/23 17:49 Dose: Infused Documented By: Admin: 09/27/23 16:47 Dose: 999 mls/hr Documented By: OLEKSANDR Sodium Chloride (Nss) 500 mls @ 999 mls/hr IV .Q31M ONE Stop: 09/27/23 17:05 Last Infusion: 09/27/23 17:17 Dose: Infused Documented By: Admin: 09/27/23 16:47 Dose: 999 mls/hr Documented By: OLEKSANDR Ciprofloxacin (Cipro / D5w) 400 mg in 200 mls @ 100 mls/hr IV NOW STA; Protocol Stop: 09/27/23 20:01 Last Infusion: 09/27/23 20:29 Dose: Infused Documented By: Admin: 09/27/23 18:29 Dose: 100 mls/hr Documented By: RJ Metronidazole (Flagyl) 500 mg in 100 mls @ 100 mls/hr IV NOW STA; Protocol Stop: 09/27/23 19:01 Last Infusion: 09/27/23 19:56 Dose: Infused Documented By: Admin: 09/27/23 18:53 Dose: 100 mls/hr Documented By: RJ Sodium Chloride (Nss) 1,000 mls @ 999 mls/hr IV .Q1H1M ONE Stop: 09/27/23 20:37 Last Infusion: 09/27/23 22:14 Dose: Infused Documented By: Admin: 09/27/23 19:56 Dose: 999 mls/hr Documented By: AMOR Pantoprazole Sodium 40 mg/ (Syringe) 10 mls @ 5 mls/min IV NOW ONE Stop: 09/27/23 19:46 Last Admin: 09/27/23 20:27 Dose: 5 mls/min Documented By: AMOR Sertraline HCl (Sertraline Hcl 50 Mg Tablet) 50 mg PO ONE ONE Stop: 09/27/23 21:01 Last Admin: 09/27/23 21:04 Dose: 50 mg Documented By: AMOR Tamsulosin HCl (Tamsulosin Hcl 0.4 Mg Cap) 0.4 mg PO NOW ONE Stop: 09/27/23 22:01 Last Admin: 04/19/24 23:21 Dose: 0.4 mg Documented By: LEEANN Zolpidem Tartrate (Zolpidem Tartrate 10 Mg Tab) 10 mg PO HS ONE Stop: 09/27/23 22:01 Last Admin: 09/27/23 23:21 Dose: 10 mg Documented By: LEEANN Imaging Data Radiologist's Impression: Chest X-Ray 09/27/23 13:51 XR chest 1V not portable CLINICAL HISTORY: Cough. COMPARISON STUDY: Chest CT September 13, 2017. FINDINGS: Lung volumes are normal. Lungs are clear. There is no pneumothorax or pleural effusion. Cardiac size is normal. Mediastinal contours are normal. There is no evidence for pulmonary edema. IMPRESSION: No acute cardiopulmonary findings. ACT 112: Negative or not required by law. Electronically signed by: Vicente Lam M.D. 09/27/2023 2:42 PM Abdomen/Pelvis CT 09/27/23 16:[address] WITHOUT CONTRAST CT DOSE: 1416.05 mGy.cm HISTORY: Acute generalized abdominal pain with leukocytosis. abdominal pain, WBC 22 TECHNIQUE: Multiaxial CT images of the abdomen and pelvis were performed without contrast. A dose lowering technique was utilized adhering to the principles of ALARA. COMPARISON STUDY: None. FINDINGS: Trace pleural effusions. Mild right basilar atelectasis. No free air. The unenhanced spleen, pancreas and adrenal glands appear unremarkable. Cholelithiasis with gallbladder wall thickening and pericholecystic fluid. Possible gallstone within the cystic duct. Unremarkable liver. No significant biliary ductal dilation. 3 mm nonobstructing calculus of the superior pole left kidney. There are a few scattered subcentimeter hypodensities of the kidneys which are too small to characterize, likely cysts. No hydronephrosis. Urinary bladder wall thickening with partial distention. Enlargement of the seminal vesicles. Prostatomegaly. Small fat filled left inguinal hernia. No abdominal aortic aneurysm or lymphadenopathy. Colonic diverticulosis. Mild wall thickening with adjacent inflammatory stranding at the descending sigmoid junction. No abscess. Normal appendix. Small fat filled umbilical hernia with diastases of 1.5 cm. No acute fracture. IMPRESSION: 1. Cholelithiasis with acute cholecystitis. 2. Mild acute diverticulitis of the descending sigmoid junction. 3. No abscess or pneumoperitoneum. 4. No bowel obstruction. 5. Trace pleural effusions. ACT 112: Negative or not required by law. The above report was generated using voice recognition software. It may contain grammatical, syntax or spelling errors. Electronically signed by: Sergio Diallo M.D. 09/27/2023 5:16 PM Discharge Plan Visit Data Chief Complaint: Dehydration Stated Complaint: DEHYDRATION, REF BY DOC, IV FLUIDS ED Provider: Andrea Chavez Discharge Problem: Acute cholecystitis, Cholelithiasis, Diverticulitis, Acute dehydration Patient Disposition: Admitted As Inpatient Discharge Instructions Interventions: ED Discharge Assessment Last Done: 09/27/23 23:19 Discharge Problem: Cholelithiasis Qualifiers: Cholelithiasis location: other site Biliary obstruction: without biliary obstruction Qualified Code(s): K80.80 - Other cholelithiasis without obstruction
[2023-09-27] MEDS: SODIUM CHLORIDE 0.9% 1,000 ML IV ONE ×2 (16:47→19:56)
[2023-09-27] MEDS: SODIUM CHLORIDE 0.9% 500 ML IV ONE (16:47)
--- NOTE | 2023-09-27 17:18 | CT Scan Report ---
ABDOMEN AND PELVIS CT WITHOUT CONTRAST CT DOSE: 1416.05 mGy.cm HISTORY: Acute generalized abdominal pain with leukocytosis. abdominal pain, WBC 22 TECHNIQUE: Multiaxial CT images of the abdomen and pelvis were performed without contrast. A dose lo wering technique was utilized adhering to the principles of ALARA. COMPARISON STUDY: None. FINDINGS: Trace pleural effusions. Mild right basilar atelectasis. No free air. The unenhanced spleen , pancreas and adrenal glands appear unremarkable. Cholelithiasis with gallbladder wall thickening an d pericholecystic fluid. Possible gallstone within the cystic duct. Unremarkable liver. No significan t biliary ductal dilation. 3 mm nonobstructing calculus of the superior pole left kidney. There are a few scattered subcentimete r hypodensities of the kidneys which are too small to characterize, likely cysts. No hydronephrosis. Urinary bladder wall thickening with partial distention. Enlargement of the seminal vesicles. Prostat omegaly. Small fat filled left inguinal hernia. No abdominal aortic aneurysm or lymphadenopathy. [place] diverticulosis. Mild wall thickening with adjacent inflammatory stranding at the descending sigmo id junction. No abscess. Normal appendix. Small fat filled umbilical hernia with diastases of 1.5 cm. No acute fracture. IMPRESSION: 1. Cholelithiasis with acute cholecystitis. 2. Mild acute diverticulitis of the descending sigmoid junction. 3. No abscess or pneumoperitoneum. 4. No bowel obstruction. 5. Trace pleural effusions. ACT 112: Negative or not required by law. The above report was generated using voice recognition software. It may contain grammatical, syntax o r spelling errors. Electronically signed by: Sergio Diallo M.D. 09/27/2023 5:16 PM
[2023-09-27 17:28] LABS: Appearance Urine Turbid (Clear); Bacteria Urine Automated None Seen (None Seen); Bilirubin Urine 1+ (Negative); Blood Urine 2+ (Negative); Cast Urine Automated >20 /lpf (0-2); Color Urine Dark Yellow; Glucose Urine UA Negative (Negative); Ketones Urine Trace (Negative); Leukocyte Esterase Urine Trace (Negative); Nitrite Urine Negative (Negative); Protein Urine 1+ (Negative); Specific Gravity Urine 1.025 (1.000-1.030); Urobilinogen Urine Negative (Negative)
[2023-09-27 17:40] LABS: Granular Casts Urine Present /lpf (None Prsent)
[2023-09-27] MEDS: CIPROFLOXACIN / D5W 400 MG/200 ML BAG IV STA (18:29)
[2023-09-27] MEDS: metroNIDAZOLE 500 MG/100 ML BAG IV STA (18:53)
[2023-09-27] MEDS ORDERED: ACETAMINOPHEN 1,000 MG/100 ML VIAL IV PRN (19:37)
[2023-09-27] MEDS ORDERED: MoRPHine SULFATE 2 MG/ML CARP IV PRN (19:37)
--- NOTE | 2023-09-27 19:48 | History & Physical Report ---
Date of Service September 27, 2023 Assessment & Plan (1) Acute cholecystitis: (2) Diverticulitis: (3) Acute kidney injury: (4) Acute dehydration: (5) BPH w urinary obs/LUTS: (6) Insomnia: (7) Anxiety: Plan Acute cholecystitis/acute sigmoid diverticulitis- N.p.o. Cipro 400 mg IV every 12 hours Flagyl 500 mg IV every 8 hours Noted penicillin allergy Zofran 4 mg IV every 6 hours as needed Acetaminophen 1 g IV every 8 hours as needed for mild pain or fever Morphine sulfate 2 mg IV every 4 hours as needed for moderate to severe pain Pantoprazole 40 mg IV daily Give normal saline 1 L IV bolus now Followed by maintenance fluids of normal saline at 100 mL/h General surgery Dr. Mayers tentatively to perform cholecystectomy when appropriate Acute kidney injury- Creatinine 1.73, with baseline 1.30 IV fluids as noted above Repeat laboratories in a.m. Insomnia/anxiety- Give morning dose of sertraline and evening dose of zolpidem this evening BPH with LUTS- Give tamsulosin 0.4 mg morning dose this evening and History of Present Illness Chief Complaint: The patient reports that he initially had sinus issues along with sore throat and some chest congestion earlier in the week, which he appeared to get over, but then noticed symptoms over the past 24 hours of progressively worsening epigastric, right upper quadrant and left lateral quadrant pain, causing decreased oral intake to both liquids and solids. Primary Care Provider: Ed Berumen DO The patient is a 58-year-old male with past medical history including BPH with LUTS, colon polyps, insomnia, and anxiety. He presents to the emergency department with symptoms as noted above. Workup in the emergency department included a CT scan which suggested acute cholecystitis, and mild acute diverticulitis. He was placed on Cipro 400 mg IV, Flagyl 500 mg IV, received 1500 mL normal saline bolus, and was then referred for evaluation for admission. He was seen by general surgery in the emergency department, who had tentatively planned to have a cholecystectomy performed the following day Allergies Allergy/AdvReac Type Severity Reaction Status Date / Time Penicillins Allergy Unknown CAN'T Verified 09/27/23 17:20 REMEMBER Home Medications Medication Instructions Recorded Confirmed Type melatonin 5 mg tablet 5 mg PO HS PRN Sleep 12/20/20 09/27/23 History tamsulosin 0.4 mg capsule 0.4 mg PO QAM #90 caps 02/27/23 09/27/23 Rx sertraline 50 mg tablet 50 mg PO DAILY #90 tabs 04/08/23 09/27/23 Rx zolpidem 10 mg tablet 10 mg PO HS #90 tabs 07/19/23 09/27/23 Rx Past Med/Surg History Medical History (Updated 09/28/23 @ 04:45 by Peterson Rao MD) BPH w urinary obs/LUTS History of kidney stones reason for flomax History of pulmonary embolism hx of ~2017 --was on blood thinners, then stopped Tubular adenoma of colon Renal cyst, acquired Surgical History History of colonoscopy History of tonsillectomy and adenoidectomy History of wisdom tooth extraction H/O right wrist surgery ligament repair [place] [facility] [place] Family History Grandmother Diabetes Grandfather Diabetes Father Stroke Other No family history of adverse response to anesthesia Social History Smoking Status: Never smoker Second Hand Exposure: No; Do You Dip or Chew Tobacco: No; Hx Alcohol Use: No Hx Substance Use: No Preferred Language: Bruneian Communication Ability: Effective Visual Impairment: Limited Hearing Ability: Normal Car Sander Required: No Beliefs That Will Affect Care: None marital status: Current Living Situation: Spouse current occupational status: employed 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 [employer] How many Children do You have: 0 Other Information That Helps Us Care for You: No Feels Safe at Home: Yes Safety Concerns: Feels Safe At This Time Childhood Exposure to Second-Hand Smoke: Yes Diet: regular caffeine: Yes (once in awhile will have soda) Dental Care, Regularly: No Physical Activity Frequency: Daily Seatbelt Use: sometimes Sunscreen Use: Yes Assistive Devices: None Review of Systems Review of Systems: The patient denies chest pain, palpitations, shortness of breath, dyspnea on exertion, cough, lower extremity swelling, fevers, chills, sweats, vomiting, blood in urine or stool, dysuria, urinary frequency or urgency, lightheadedness, dizziness, headache, memory loss, loss of consciousness, rash, abnormal bruising or bleeding, imbalance, focal weakness, numbness or tingling in arms or legs, generalized arthralgias or myalgias, back or neck pain, or night sweats. The review of systems is otherwise negative other than for that already noted above, and at least 10 systems have been reviewed. Physical Exam Physical Exam: The patient is awake, alert and oriented 3, well developed and well nourished, normocephalic and atraumatic, lying in bed and in no acute distress. HEENT--PERRL, EOMI, mucous membranes and oropharynx dry. Neck--supple. No JVD. No bruits. Thyroid normal, trachea midline, no adenopathy. Heart--normal S1 and S2. No murmurs, rubs or gallops. Lungs--clear bilaterally, no respiratory distress, no accessory muscle use. Abdomen--normal bowel sounds and soft. Nontender. Nondistended. Mildly obese Extremities--No edema. Dermatologic--normal skin turgor, normal color, no abnormal lymph nodes, no rash. Neurologic--cranial nerves II through XII grossly intact. Rheumatologic--normal range of motion. Psychiatric--normal affect. Results & Data Results & Data Vital Signs (Past 12 Hours) Vital Signs Temp Pulse Pulse Resp BP BP Pulse Ox 09/27/23 19:00 68 14 136/89 98 09/27/23 18:30 68 14 129/82 98 09/27/23 18:05 37.4 C 09/27/23 18:00 73 14 130/90 96 09/27/23 17:30 69 18 118/86 97 09/27/23 17:01 75 20 122/79 99 09/27/23 16:30 66 20 115/79 98 09/27/23 16:23 71 09/27/23 16:18 70 18 124/85 99 09/27/23 13:29 18 09/27/23 13:29 36.6 C 87 18 117/80 99 O2 Del Method 09/27/23 19:00 Room Air 09/27/23 18:30 Room Air 09/27/23 18:05 09/27/23 18:00 09/27/23 17:30 09/27/23 17:01 Room Air 04/19/24 16:30 Room Air 09/27/23 16:23 09/27/23 16:18 Room Air 09/27/23 13:29 09/27/23 13:29 Laboratory Results Laboratory Results WBC 22.67 K/ul (4.8-10.8) H 09/27/23 13:58 RBC 5.52 M/uL (4.70-6.10) 09/27/23 13:58 Hgb 16.0 g/dl (14.0-18.0) 09/27/23 13:58 Hct 48.6 % (42.0-52.0) 09/27/23 13:58 MCV 88.0 fL (80.0-100.0) 09/27/23 13:58 MCH 29.0 pg (25.0-34.0) 09/27/23 13:58 MCHC 32.9 g/dL (32.0-36.0) 09/27/23 13:58 RDW Std Deviation 43.2 fL (36.4-46.3) 09/27/23 13:58 RDW Coeff of Vero 13.3 % (11.5-14.5) 09/27/23 13:58 Plt Count 237 K/uL (130-400) 09/27/23 13:58 MPV 8.6 fL (9.4-12.4) L 09/27/23 13:58 Immature Gran % (Auto) 0.8 % 09/27/23 13:58 Neut % (Auto) 77.1 % 09/27/23 13:58 Lymph % (Auto) 13.3 % 09/27/23 13:58 [place] % (Auto) 8.2 % 09/27/23 13:58 Eos % (Auto) 0.2 % 09/27/23 13:58 Baso % (Auto) 0.4 % 09/27/23 13:58 Neut # (Auto) 17.46 K/uL (1.40-6.50) H 09/27/23 13:58 Lymph # (Auto) 3.01 K/uL (1.20-3.40) 09/27/23 13:58 [place] # (Auto) 1.87 K/uL (0.11-0.59) H 09/27/23 13:58 Eos # (Auto) 0.04 K/uL (0.00-0.50) 09/27/23 13:58 Baso # (Auto) 0.10 K/uL (0.00-0.20) 09/27/23 13:58 Immature Gran # (Auto) 0.19 K/uL (0.01-0.20) 09/27/23 13:58 Sodium 131 mmol/L (136-145) L 09/27/23 13:58 Potassium 4.3 mmol/L (3.5-5.1) 09/27/23 13:58 Chloride 98 mmol/L (98-107) 09/27/23 13:58 Carbon Dioxide 23 mmol/L (21-32) 09/27/23 13:58 Anion Gap 10 (3-11) 09/27/23 13:58 BUN 28 mg/dl (6-23) H 09/27/23 13:58 Creatinine 1.73 mg/dl (0.6-1.4) H 09/27/23 13:58 Est Cr Clr Drug Dosing 56.2 ml/min 09/27/23 13:58 Est GFR ( Amer) 49.3 ml/min 09/27/23 13:58 Est GFR (Non-Af Amer) 42.6 ml/min 09/27/23 13:58 BUN/Creatinine Ratio 16.2 (10-20) 09/27/23 13:58 Glucose 99 mg/dl (70-99(Fasting)) 09/27/23 13:58 Calcium 10.5 mg/dl (8.6-10.3) H 09/27/23 13:58 Total Bilirubin 1.4 mg/dl (0.2-1.0) H 09/27/23 13:58 AST 14 U/L (13-39) 09/27/23 13:58 ALT 28 U/L (7-52) 09/27/23 13:58 Alkaline Phosphatase 83 U/L (34-104) 09/27/23 13:58 Total Protein 8.2 gm/dl (6.0-8.3) 09/27/23 13:58 Albumin 3.8 gm/dl (3.4-5.0) 09/27/23 13:58 Globulin 4.4 gm/dl (2.5-4.0) H 09/27/23 13:58 Albumin/Globulin Ratio 0.9 (0.9-2) 09/27/23 13:58 Procalcitonin 1.86 ng/ml (0-0.5) H 09/27/23 13:58 Urine Color Dark Yellow 09/27/23 16:18 Urine Appearance Turbid (Clear) A 09/27/23 16:18 Urine pH 5.0 (4.5-7.5) 09/27/23 16:18 Ur Specific [place] 1.025 (1.000-1.030) 09/27/23 16:18 Urine Protein 1+ (Negative) H 09/27/23 16:18 Urine Glucose (UA) Negative (Negative) 09/27/23 16:18 Urine Ketones Trace (Negative) H 09/27/23 16:18 Urine Blood 2+ (Negative) H 09/27/23 16:18 Urine Nitrite Negative (Negative) 09/27/23 16:18 Urine Bilirubin 1+ (Negative) H 09/27/23 16:18 Urine Urobilinogen Negative (Negative) 09/27/23 16:18 Ur Leukocyte Esterase Trace (Negative) H 09/27/23 16:18 Urine WBC (Auto) 6-10 /hpf (0-5) H 09/27/23 16:18 Urine RBC (Auto) 6-10 /hpf (0-2) H 09/27/23 16:18 U Hyaline Cast (Auto) >20 /lpf (0-2) H 09/27/23 16:18 U Epithel Cells (Auto) 11-20 /hpf (0-2) H 09/27/23 16:18 Urine Bacteria (Auto) None Seen (None Seen) 09/27/23 16:18 Granular Casts Present /lpf (None Prsent) A 09/27/23 16:18 Anaplasma Smear See Comment 09/27/23 13:58 Babesia Smear See Comment 09/27/23 13:58 Lyme Disease Screen Negative (Negative) 09/27/23 13:58 SARS-CoV-2 (PCR) NEGATIVE (Negative) 09/27/23 13:58 Monoscreen Negative (Negative) 09/27/23 13:58 Influenza Type A (PCR) Negative (Neg) 09/27/23 13:58 Influenza Type B (PCR) Negative (Neg) 09/27/23 13:58 RSV (RT-PCR) Negative (Neg) 09/27/23 13:58 Group A Strep (PCR) NOT DETECTED (NotDetected) 09/27/23 16:37 Impressions Chest X-Ray 09/27/23 13:51 XR chest 1V not portable CLINICAL HISTORY: Cough. COMPARISON STUDY: Chest CT September 13, 2017. FINDINGS: Lung volumes are normal. Lungs are clear. There is no pneumothorax or pleural effusion. Cardiac size is normal. Mediastinal contours are normal. There is no evidence for pulmonary edema. IMPRESSION: No acute cardiopulmonary findings. ACT 112: Negative or not required by law. Electronically signed by: Vicente Lam M.D. 09/27/2023 2:42 PM Abdomen/Pelvis CT 09/27/23 16:[address] WITHOUT CONTRAST CT DOSE: 1416.05 mGy.cm HISTORY: Acute generalized abdominal pain with leukocytosis. abdominal pain, WBC 22 TECHNIQUE: Multiaxial CT images of the abdomen and pelvis were performed without contrast. A dose lowering technique was utilized adhering to the principles of ALARA. COMPARISON STUDY: None. FINDINGS: Trace pleural effusions. Mild right basilar atelectasis. No free air. The unenhanced spleen, pancreas and adrenal glands appear unremarkable. Cholelithiasis with gallbladder wall thickening and pericholecystic fluid. Possible gallstone within the cystic duct. Unremarkable liver. No significant biliary ductal dilation. 3 mm nonobstructing calculus of the superior pole left kidney. There are a few scattered subcentimeter hypodensities of the kidneys which are too small to characterize, likely cysts. No hydronephrosis. Urinary bladder wall thickening with partial distention. Enlargement of the seminal vesicles. Prostatomegaly. Small fat filled left inguinal hernia. No abdominal aortic aneurysm or lymphadenopathy. Colonic diverticulosis. Mild wall thickening with adjacent inflammatory stranding at the descending sigmoid junction. No abscess. Normal appendix. Small fat filled umbilical hernia with diastases of 1.5 cm. No acute fracture. IMPRESSION: 1. Cholelithiasis with acute cholecystitis. 2. Mild acute diverticulitis of the descending sigmoid junction. 3. No abscess or pneumoperitoneum. 4. No bowel obstruction. 5. Trace pleural effusions. ACT 112: Negative or not required by law. The above report was generated using voice recognition software. It may contain grammatical, syntax or spelling errors. Electronically signed by: Sergio Diallo M.D. 09/27/2023 5:16 PM Code Status & VTE Plan Code Status Full code VTE Prophylaxis Plan VTE Prophylaxis will be ordered: Yes PG Care Time/CCT Total # of Minutes Spent Total Time Spent with Patient: Total time spent is greater than 50% in coordination of care (as documented) at patient's floor/unit and/or counseling patient: Coding Level of Care Code 53466 INT INP/OBS CARE 3/75MIN Diagnoses Acute cholecystitis K81.0 Diverticulitis K57.92 Acute kidney injury N17.9 Acute dehydration E86.0 BPH w urinary obs/LUTS N40.1; N13.8 Primary insomnia F51.01 Insomnia type: primary Anxiety F41.9 (6) Insomnia Insomnia type: primary Qualified Code(s): F51.01 - Primary insomnia
--- NOTE | 2023-09-27 20:06 | Surgery Consultation ---
Date of Consultation September 27, 2023 Assessment & Plan (1) Acute cholecystitis: Acute cholecystitis cholelithiasis was discussed with the patient including the therapy at this time Of note the patient had no symptoms related to his gallbladder disease prior to this event he had no intolerance to any foods and his family history was negative for any gallbladder issues Did discuss with the patient and his depending on the clinical progress further recommendation regarding possibility of gallbladder surgery in the next day or so All question answered Plan The patient will be admitted to medicine fluid resuscitated broad-spectrum antibiotics on board we will reevaluate the patient tomorrow at that time make further recommendations regarding the acute cholecystitis and cholelithiasis The mild acute "diverticulitis will follow clinically the patient states that he gets routine colonoscopies since he was found to have some polyps in the past and has had colonoscopy within the last 3 years Will keep patient n.p.o. and broad-spectrum antibiotic repeat labs in the morning History of Present Illness Reason for Consultation: Acute cholecystitis diverticulitis History of Present Illness This 58-year-old gentleman was seen by his primary physician earlier today for flulike symptoms that started on 09/13/2023 at that time the patient denies any sick contacts when he was seen by his primary physician as they felt a little bit better but he still had significant fatigue and recommended the patient to be seen in the emergency room since he suspected that the patient was dehydrated at underwent a CT scan of the abdomen which showed findings of acute cholecystitis and mild acute diverticulitis of the descending sigmoid junction no abscess or pneumoperitoneum no bowel obstruction trace pleural effusion bilaterally We were asked to see him regarding acute cholecystitis and diverticulitis Allergies Allergy/AdvReac Type Severity Reaction Status Date / Time Penicillins Allergy Unknown CAN'T Verified 09/27/23 17:20 REMEMBER Home Medications Medication Instructions Recorded Confirmed Type melatonin 5 mg tablet 5 mg PO HS PRN Sleep 12/20/20 09/27/23 History tamsulosin 0.4 mg capsule 0.4 mg PO QAM #90 caps 02/27/23 09/27/23 Rx sertraline 50 mg tablet 50 mg PO DAILY #90 tabs 04/08/23 09/27/23 Rx zolpidem 10 mg tablet 10 mg PO HS #90 tabs 07/19/23 09/27/23 Rx Patient History Medical History (Updated 04/20/24 @ 04:45 by Peterson Rao MD) BPH w urinary obs/LUTS History of kidney stones reason for flomax History of pulmonary embolism hx of ~2017 --was on blood thinners, then stopped Tubular adenoma of colon Renal cyst, acquired Surgical History History of colonoscopy History of tonsillectomy and adenoidectomy History of wisdom tooth extraction [place] [facility] [place] History Grandmother Diabetes Grandfather Diabetes Father Stroke Other No family history of adverse response to anesthesia Social History Smoking Status: Never smoker Second Hand Exposure: No; Do You Dip or Chew Tobacco: No; Hx Alcohol Use: No Hx Substance Use: No Preferred Language: Occitan Communication Ability: Effective Visual Impairment: Limited Hearing Ability: Normal Vision Impaired Teacher Required: No Beliefs That Will Affect Care: None marital status: Current Living Situation: Spouse current occupational status: employed 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 [employer] How many Children do You have: 0 Other Information That Helps Us Care for You: No Feels Safe at Home: Yes Safety Concerns: Feels Safe At This Time Childhood Exposure to Second-Hand Smoke: Yes Diet: regular caffeine: Yes (once in awhile will have soda) Dental Care, Regularly: No Physical Activity Frequency: Daily Seatbelt Use: sometimes Sunscreen Use: Yes Assistive Devices: None Review of Systems Review of Systems: As stated of the other reviews Physical Exam Physical Exam: Patient is alert coherent wearing a mask at the bedside appears to be resting comfortably denies any nausea or vomiting and no abdominal discomfort unless someone pushes on him The sclera slightly icteric Trachea is midline The abdomen benign no left lower quadrant tenderness no masses some guarding appreciated in the right upper quadrant negative Phillips's Results & Data Vital Signs (Past 12 Hours) Vital Signs Temp Pulse Pulse Resp BP BP Pulse Ox 09/27/23 19:00 68 14 136/89 98 09/27/23 18:30 68 14 129/82 98 09/27/23 18:05 37.4 C 09/27/23 18:00 73 14 130/90 96 09/27/23 17:30 69 18 118/86 97 09/27/23 17:01 75 20 122/79 99 09/27/23 16:30 66 20 115/79 98 09/27/23 16:23 71 09/27/23 16:18 70 18 124/85 99 09/27/23 13:29 18 09/27/23 13:29 36.6 C 87 18 117/80 99 O2 Del Method 09/27/23 19:00 Room Air 09/27/23 18:30 Room Air 09/27/23 18:05 09/27/23 18:00 09/27/23 17:30 09/27/23 17:01 Room Air 09/27/23 16:30 Room Air 09/27/23 16:23 09/27/23 16:18 Room Air 09/27/23 13:29 09/27/23 13:29 Laboratory Results White count 22,000 with a left shift hemoglobin 16 total bilirubin 1.4 other liver enzymes normal Serology profile Lyme disease negative COVID-negative influenza type a type B- RSV negative group A strep negative Diagnostic Findings CAT scan reviewed acute cholecystitis mild acute diverticulitis trace bilateral pleural effusion Common bile duct no significant dilatation PG Care Time/CCT Total # of Minutes Spent Total Time Spent with Patient: Total time spent is greater than 50% in coordination of care (as documented) at patient's floor/unit and/or counseling patient: Coding Level of Care Code 68398 IN/OBS CONSULT LVL 4,60M Diagnoses Acute cholecystitis K81.0
[2023-09-27] MEDS: PANTOprazole 40 MG in SYRINGE 0 ML IV ONE (20:27)
[2023-09-27] MEDS: SERTRALINE HCL 50 MG TABLET PO ONE (21:04)
[2023-09-27] MEDS ORDERED: ACETAMINOPHEN 1000 MG/100 ML IV IV PRN (22:41)
[2023-09-27] MEDS: SODIUM CHLORIDE 0.9% 1,000 ML IV SCH (23:21)
[2023-09-27] MEDS: ZOLPIDEM TARTRATE 10 MG TAB PO ONE (23:21)
[2023-09-27] MEDS: TAMSULOSIN HCL 0.4 MG CAP PO ONE (23:21)
[2023-09-28] MEDS: metroNIDAZOLE 500 MG/100 ML BAG IV SCH (02:43)
[2023-09-28] MEDS: CIPROFLOXACIN / D5W 400 MG/200 ML BAG IV SCH (06:53)
[2023-09-28 07:14] LABS: Basophils # (auto) 0.07 K/uL (0.00-0.20); Basophils % (auto) 0.4 %; Eosinophils # (auto) 0.21 K/uL (0.00-0.50); Eosinophils % (auto) 1.2 %; Hematocrit (blood only) 40.9 % (42.0-52.0); Hemoglobin 13.8 g/dl (14.0-18.0); Immature Granulocytes # (auto) 0.13 K/uL (0.01-0.20); Immature Granulocytes % (auto) 0.8 %; Lymphocytes # (auto) 2.09 K/uL (1.20-3.40); Lymphocytes % (auto) 12.2 %; Mean Corpuscular Hemoglobin 29.3 pg (25.0-34.0); Mean Corpuscular Hgb Conc 33.7 g/dL (32.0-36.0); Mean Corpuscular Volume 86.8 fL (80.0-100.0); Monocytes # (auto) 1.54 K/uL (0.11-0.59); Neutrophils % (auto) 76.4 %; Platelet Count 203 K/uL (130-400); RDW Coefficient of Variation 13.4 % (11.5-14.5); RDW Standard Deviation 43.3 fL (36.4-46.3); Red Blood Count 4.71 M/uL (4.70-6.10); White Blood Count 17.14 K/ul (4.8-10.8)
[2023-09-28 07:49] LABS: Total Protein 6.5 gm/dl (6.0-8.3)
[2023-09-28 07:50] LABS: Albumin Globulin Ratio 0.9 (0.9-2); Albumin Level 3.1 gm/dl (3.4-5.0); BUN Creatinine Ratio 19.3 (10-20); Bilirubin,Total 0.9 mg/dl (0.2-1.0); Calcium 9.3 mg/dl (8.6-10.3); Creatinine Clr Calc Pharmacy 81.5 ml/min; Est GFR (African American) 77.6 ml/min; Est GFR (Non-African American) 66.9 ml/min; Globulin 3.4 gm/dl (2.5-4.0); Magnesium 1.9 mg/dl (1.7-2.4); Potassium 4.2 mmol/L (3.5-5.1)
--- NOTE | 2023-09-28 09:42 | Surgery Progress Note ---
Date of Service September 28, 2023 Assessment & Plan (1) Acute cholecystitis: Plan: Patient here with abdominal pain with imaging revealing findings of cholelithiasis with acute cholecystitis and mild sigmoid diverticulitis today WBC 17(22). LFTs show Tb 0/9, AST 10, ALT20. vitals are stable and patient afebrile he admits to feeling mildly better. remains ttp in the RUQ may have clears today, but will make NPO at midnight and book for the OR tomorrow with dr. ruffin for a lap cesar continue on iv abx npo at midnight pt seen/examined with dr. ruffin (2) Diverticulitis: Admission and Anticipated Discharge Date Admission Date: September 27, 2023 Supervising Physician Co-Signing Physician Notes as per Milagros ROMO per responding clinically to rehydration pt only pos ruq guarding rest of abd neg no left lower quadrant guarding will plan for lap cesar c'gram in am Subjective Patient feeling a bit better. Passing small amounts of flatus. Still with some RUQ discomfort. Physical Exam Physical Exam: awake/alert Respiratory: normal respiratory effort Gastrointestinal (Abdomen): Percussion/Palpation: + abdomen tender (RUQ ttp ) and abdomen soft Results & Data Vital Signs (Past 12 Hours) Vital Signs Temp Pulse Resp BP Pulse Ox O2 Del Method 09/28/23 07:04 98.2 F 70 18 127/78 96 Room Air 09/27/23 23:34 98.1 F 70 18 123/73 97 Room Air 09/27/23 22:42 Room Air PG Care Time/CCT Total # of Minutes Spent Total Time Spent with Patient: Total time spent is greater than 50% in coordination of care (as documented) at patient's floor/unit and/or counseling patient: Coding Level of Care Code 78354 SUB INP/OBS CARE 25MIN Diagnoses Acute cholecystitis K81.0 Diverticulitis K57.92
[2023-09-28] MEDS: PANTOprazole 40 MG in SYRINGE 0 ML IV SCH (11:02)
[2023-09-28] MEDS: ENOXAPARIN INJ 40 MG/0.4 ML SYR SQ SCH (11:45)
--- NOTE | 2023-09-28 14:40 | Hospitalist Progress Note ---
Date of Service September 28, 2023 Assessment & Plan (1) Acute cholecystitis: (2) Diverticulitis: (3) Acute kidney injury: (4) Acute dehydration: (5) BPH w urinary obs/LUTS: (6) Insomnia: (7) Anxiety: Plan Acute cholecystitis/acute sigmoid diverticulitis- -laparoscopic cholecystectomy moved from 09/27 to 09/28 -N.p.o. switch to clear liquid, n.p.o. at midnight -Continue Cipro 400 mg IV every 12 hours -Continue Flagyl 500 mg IV every 8 hours -Noted penicillin allergy -Zofran 4 mg IV every 6 hours as needed -Acetaminophen 1 g IV every 8 hours as needed for mild pain or fever -Morphine sulfate 2 mg IV every 4 hours as needed for moderate to severe pain -Pantoprazole 40 mg IV daily -Continue maintenance fluids of normal saline at 100 mL/h -General surgery Dr. Mayers tentatively to perform cholecystectomy when appropriate Acute kidney injury (resolved) -Creatinine 1.73, with baseline 1.30, resolved -IV fluids as noted above Insomnia/anxiety- -Restart home insomnia medications BPH with LUTS- -restart Flomax Disposition: Continue on MedSurg with n.p.o. after midnight for anticipated cholecystectomy in morning DVT prophylaxis: Lovenox Diet: Clears with n.p.o. after midnight CODE STATUS: Full code Admission and Anticipated Discharge Date Admission Date: September 27, 2023 Supervising Physician Co-Signing Physician Notes ATTESTATION I also saw the patient and confirmed sanchez portions of the history and exam. I agree with the impression and plan in the resident documentation, and as sum marized below. EXAM 127/78, 70, 18, 36.8, 93% on room air Alert and oriented. No acute distress at present Heart regular Respirations nonlabored DATA Labs White blood cell count 17.14, down from 22.67 upon admission Sodium 134, potassium 4.2, BUN 23, creatinine 1.19 Micro Blood cultures collected 09/27/2023 pending IMPRESSION & PLAN Acute cholecystitis Diverticulitis ALYSSA, resolved Hemodynamically stable, pain controlled at present Continue ciprofloxacin and Flagyl Appreciate surgical consult, tentatively scheduled for laparoscopic cholecystectomy tomorrow Additional per resident documentation Subjective Patient seen at bedside this morning. No acute events reported overnight. Patient seems to be doing better since being hydrated and having antibiotics. Minimal to no pain. Occasional nausea but reports improved from yesterday. Otherwise no new complaints. Review of Systems Review of Systems: All systems reviewed & are unremarkable except as noted in HPI & below Physical Exam Physical Exam: The patient is awake, alert and oriented 3, well developed and well nourished, normocephalic and atraumatic, lying in bed and in no acute distress. HEENT--PERRL, EOMI, mucous membranes and oropharynx dry. Neck--supple. No JVD. No bruits. Thyroid normal, trachea midline, no adenopathy. Heart--normal S1 and S2. No murmurs, rubs or gallops. Lungs--clear bilaterally, no respiratory distress, no accessory muscle use. Abdomen--normal bowel sounds and soft. Nondistended. Tenderness to palpation of right upper quadrant. Extremities--No edema. Dermatologic--normal skin turgor, normal color, no abnormal lymph nodes, no rash. Neurologic--cranial nerves II through XII grossly intact. Rheumatologic--normal range of motion. Psychiatric--normal affect. Results & Data Results & Data Vital Signs (Past 12 Hours) Vital Signs Temp Pulse Resp BP Pulse Ox O2 Del Method 09/28/23 08:00 Room Air 09/28/23 07:04 36.8 C 70 18 127/78 96 Room Air (6) Insomnia Insomnia type: primary Qualified Code(s): F51.01 - Primary insomnia
--- NOTE | 2023-09-28 18:10 | Anesthesiology Consultation ---
Date of Service September 28, 2023 Assessment & Plan Chart Review Chart Review: Acceptable Risk for Surgery and Patient NOT seen in Pre Admission Testing Consults Requested none ASA ASA2 Proposed Anesthesia Anesthesia Type: General History Surgery Operation Date: 09/29/23 07:30 Proposed Procedures p Laparoscopic Cholecystectomy - Ramone Mayers MD, FACS Height/Weight Height: 5 ft 10 in Weight: 103.419 kg Allergies Allergy/AdvReac Type Severity Reaction Status Date / Time Penicillins Allergy Unknown CAN'T Verified 09/27/23 17:20 REMEMBER Medications Home Medications Medication Instructions Recorded Confirmed Last Taken melatonin 5 mg tablet 5 mg PO HS PRN Sleep 12/20/20 09/27/23 Unknown tamsulosin 0.4 mg capsule 0.4 mg PO QAM #90 caps 02/27/23 09/27/23 09/27/23 sertraline 50 mg tablet 50 mg PO DAILY #90 tabs 04/08/23 09/27/23 09/27/23 zolpidem 10 mg tablet 10 mg PO HS #90 tabs 07/19/23 09/27/23 09/26/23 Active Medications Generic Name Dose Route Start Last Admin Trade Name Freq PRN Reason Stop Dose Admin Enoxaparin Sodium 40 mg 09/28/23 10:15 09/28/23 11:45 Enoxaparin Inj 40 Mg/0.4 Ml Syr SQ 10/28/23 10:14 Not Given Q24H RAMONA Sodium Chloride 1,000 mls @ 100 mls/hr 09/27/23 19:45 09/28/23 13:40 Nss IV 10/27/23 19:44 Not Given .Q10H RAMONA Ciprofloxacin 400 mg in 200 mls @ 200 mls/hr 09/28/23 06:00 09/28/23 08:44 Cipro / D5w IV 10/08/23 05:59 Infused Q12H RAMONA Infusion Protocol Metronidazole 500 mg in 100 mls @ 100 mls/hr 09/28/23 03:00 09/28/23 12:26 Flagyl IV 10/08/23 02:59 Infused Q8H RAMONA Infusion Protocol Pantoprazole Sodium 40 mg/ 10 mls @ 5 mls/min 09/28/23 11:00 09/28/23 11:02 Syringe IV 10/28/23 10:59 5 mls/min DAILY@1100 RAMONA Administration Past Medical History Medical History BPH w urinary obs/LUTS History of kidney stones reason for flomax History of pulmonary embolism hx of ~2018 --was on blood thinners, then stopped Tubular adenoma of colon Renal cyst, acquired obese Homocystinemia ALYSSA Exercise / Class Metabolic Activity II 4-5 Yardwork/Stairs/Walk up hill Past Family History Family History Grandmother Diabetes Grandfather Diabetes Father Stroke Other No family history of adverse response to anesthesia Past Surgical History Surgical History History of colonoscopy History of tonsillectomy and adenoidectomy History of wisdom tooth extraction H/O right wrist surgery ligament repair at [facility] Past Anesthesia History No Hx of Anesthesia Complications and No Family Hx of Anesthesia Complications History of PONV No Hx of PONV and No Hx of Motion Sickness Social History Smoking Status: Never smoker Do You Dip or Chew Tobacco: No Hx Alcohol Use: No Hx Substance Use: No substance use type: does not use Physical Exam Vital Signs Last Vital Signs Temp 36.7 C 09/28/23 15:24 Pulse 66 09/28/23 15:24 Resp 16 09/28/23 15:24 BP 102/64 09/28/23 15:24 Pulse Ox 96 09/28/23 15:24 O2 Del Method Room Air 09/28/23 16:30 Testing Laboratory Results 09/28/23 06:21 09/28/23 06:21 Urine Color Dark Yellow 09/27/23 16:18 Urine Appearance Turbid (Clear) A 09/27/23 16:18 Urine pH 5.0 (4.5-7.5) 09/27/23 16:18 Ur Specific Ainsworth 1.025 (1.000-1.030) 09/27/23 16:18 Urine Protein 1+ (Negative) H 09/27/23 16:18 Urine Glucose (UA) Negative (Negative) 09/27/23 16:18 Urine Ketones Trace (Negative) H 09/27/23 16:18 Urine Nitrite Negative (Negative) 09/27/23 16:18 Ur Leukocyte Esterase Trace (Negative) H 09/27/23 16:18 Urine WBC (Auto) 6-10 /hpf (0-5) H 09/27/23 16:18 Urine RBC (Auto) 6-10 /hpf (0-2) H 09/27/23 16:18 U Hyaline Cast (Auto) >20 /lpf (0-2) H 09/27/23 16:18 U Epithel Cells (Auto) 11-20 /hpf (0-2) H 09/27/23 16:18 Urine Bacteria (Auto) None Seen (None Seen) 09/27/23 16:18 Chest X-Ray Date: 09/27/23 Findings: + NAD
[2023-09-28] MEDS: ZOLPIDEM TARTRATE 10 MG TAB PO SCH (20:13)
[2023-09-28] MEDS: SERTRALINE HCL 50 MG TABLET PO SCH (20:13)
[2023-09-28] MEDS: TAMSULOSIN HCL 0.4 MG CAP PO SCH (20:13)
[2023-09-29 07:10] LABS: Basophils # (auto) 0.12 K/uL (0.00-0.20); Basophils % (auto) 0.8 %; Eosinophils # (auto) 0.31 K/uL (0.00-0.50); Eosinophils % (auto) 2.1 %; Hematocrit (blood only) 42.5 % (42.0-52.0); Immature Granulocytes # (auto) 0.16 K/uL (0.01-0.20); Immature Granulocytes % (auto) 1.1 %; Lymphocytes # (auto) 2.82 K/uL (1.20-3.40); Lymphocytes % (auto) 18.7 %; Mean Corpuscular Hemoglobin 28.9 pg (25.0-34.0); Mean Corpuscular Hgb Conc 32.9 g/dL (32.0-36.0); Mean Corpuscular Volume 87.6 fL (80.0-100.0); Mean Platelet Volume 8.8 fL (9.4-12.4); Monocytes # (auto) 1.47 K/uL (0.11-0.59); Monocytes % (auto) 9.7 %; Neutrophils # (auto) 10.23 K/uL (1.40-6.50); Neutrophils % (auto) 67.6 %; Platelet Count 231 K/uL (130-400); RDW Coefficient of Variation 13.6 % (11.5-14.5); RDW Standard Deviation 43.8 fL (36.4-46.3); Red Blood Count 4.85 M/uL (4.70-6.10); White Blood Count 15.11 K/ul (4.8-10.8)
[2023-09-29] MEDS ORDERED: SUCCINYLCHOLINE CHLORIDE 20 MG/ML 10 ML VIAL IV ONE (07:19)
[2023-09-29] MEDS ORDERED: fentaNYL citrate PF 100 MCG/2 ML VIAL ONE ×2 (07:19→07:49)
[2023-09-29] MEDS ORDERED: ROCURONIUM BROMIDE 10 MG/ML 5 ML VIAL IV ONE ×2 (07:19→08:17)
[2023-09-29] MEDS ORDERED: ONDANSETRON INJ 2 MG/ML 2 ML VIAL ONE (07:19)
[2023-09-29] MEDS ORDERED: DEXAMETHASONE SOD INJ 4 MG/ML VIAL ONE (07:19)
[2023-09-29] MEDS ORDERED: PROPOFOL IV EMULSION 10 MG/ML 20 ML VIAL IV ONE (07:19)
[2023-09-29 07:22] LABS: Albumin Globulin Ratio 0.8 (0.9-2); BUN Creatinine Ratio 14.2 (10-20); Bilirubin,Total 0.7 mg/dl (0.2-1.0); Calcium 9.3 mg/dl (8.6-10.3); Creatinine Clr Calc Pharmacy 80.8 ml/min; Est GFR (African American) 76.8 ml/min; Est GFR (Non-African American) 66.3 ml/min; Globulin 3.6 gm/dl (2.5-4.0); Magnesium 1.8 mg/dl (1.7-2.4); Potassium 3.8 mmol/L (3.5-5.1); Total Protein 6.6 gm/dl (6.0-8.3)
[2023-09-29] MEDS ORDERED: SUGAMMADEX SODIUM 200 MG/2 ML VIAL IV ONE ×2 (07:25→09:48)
[2023-09-29] MEDS ORDERED: PROMETHAZINE HCL 6.25 MG in SODIUM CHLORIDE 0.9% 50 ML IV PRN (07:29)
[2023-09-29] MEDS ORDERED: ATROPINE SULFATE 0.1 MG/ML 10ML SYR IV PRN (07:29)
[2023-09-29] MEDS ORDERED: NALOXONE HCL 0.4 MG/1 ML VIAL/CARP IV PRN (07:29)
[2023-09-29] MEDS ORDERED: FLUMAZENIL 0.1 MG/1 ML 10 ML VIAL IV PRN (07:29)
[2023-09-29] MEDS ORDERED: ONDANSETRON INJ 2 MG/ML 2 ML VIAL IV PRN (07:29)
[2023-09-29] MEDS ORDERED: ePHEDrine sulfate 50 MG/ML AMP IV PRN (07:29)
[2023-09-29] MEDS ORDERED: GLUCAGON FOR INJ 1 MG VIAL ONE (08:41)
[2023-09-29] MEDS: GLUCAGON 1 MG in SYRINGE 0 ML IV ONE (08:45)
[2023-09-29] MEDS ORDERED: TAMSULOSIN HCL 0.4 MG CAP PO SCH (09:00)
[2023-09-29] MEDS ORDERED: SERTRALINE HCL 50 MG TABLET PO SCH (09:00)
--- NOTE | 2023-09-29 09:00 | Fluoroscopy Report ---
[place] cholangiogram OR CLINICAL HISTORY: [facility] COMPARISON STUDY: CT of the abdomen and pelvis September 27, 2023. FLUOROSCOPY TIME: 7 seconds. Ka, r: 1.9970 mGy FLUOROSCOPIC IMAGES: 4 FINDINGS: Fluoroscopy was provided during intraoperative cholangiogram. Extraluminal contrast related to injection is incidentally noted. There is no biliary ductal dilatation. No filling defects within the common bile duct are identified to suggest choledocholithiasis. There is opacification of the du odenum. IMPRESSION: No fluoroscopic evidence for choledocholithiasis. ACT 112: Negative or not required by law. Electronically signed by: Vicente Lam M.D. 09/29/2023 8:57 AM
[2023-09-29] MEDS: LIDOCAINE 1%/EPINEPHRINE 1:100,000 20 ML VIAL ONE (09:25)
[2023-09-29] MEDS: IOVERSOL 50ml IV ONE (09:25)
--- NOTE | 2023-09-29 09:32 | Post Operative Brief Note ---
Immediate Post Op Note v1 Date of Surgery September 29, 2023 Pre & Post Diagnosis Operation Date: 09/29/23 07:30 Pre-Op Diagnosis: Acute cholecystitis Post-Op Diagnosis: Acute cholecystitis I identified the patient and participated in the time-out.: Yes Procedure Operation Date: 09/29/23 07:30 Actual Procedures p Laparoscopic Cholecystectomy with cholangiogram(Not Applicable) - Ramone Mayers MD, FACS Surgeon Ramone Mayers MD, FACS Code Enforcement Officer Lucie MILTON Estimated Blood Loss 50 Findings Consistent with Post-Op Diagnosis
[2023-09-29] MEDS: fentaNYL citrate PF 100 MCG/2 ML VIAL IV PRN (09:50)
--- NOTE | 2023-09-29 10:09 | Operative Report ---
[facility] Post Operative Report Pre & Post Diagnosis Operation Date: 09/29/23 07:30 Pre-Op Diagnosis: Acute cholecystitis Post-Op Diagnosis: Acute cholecystitis I identified the patient and participated in the time-out.: Yes Procedure Operation Date: 09/29/23 07:30 Actual Procedures p Laparoscopic Cholecystectomy with cholangiogram(Not Applicable) - Ramone Mayers MD, FACS Indication for surgery Approximately 2-week history of GI symptoms flulike in nature came into the emergency room dehydrated was found to have acute cholecystitis cholelithiasis and also some mild diverticulitis started on antibiotics and today we will proceed with removal of the gallbladder The patient was brought into the operating theater general trach anesthesia the abdomen was prepped Betadine solution properly draped systemic antibiotics on board a timeout was had patient identified small incision was made supraumbilically sufficient enough to accommodate a Veress needle followed by CO2 followed by 5 mm trocar point of entry specter no injury identified patient was placed in reverse Trendelenburg slightly rotated to the left and direct visualization we looked at the right upper quadrant could see the liver the fundus of the gallbladder was barely recognizable relation is to the rest of the edge of the liver omentum was plastered over it on direct visualization we placed a 5 mm epigastric and 2 5 mm support the port with preemptive local analgesia 1% Xylocaine the omentum was bluntly freed from the gallbladder which was extremely tense thick walled dark in nature without any patchy necrosis a grasper was used to elevate the gallbladder and aspirating needle was placed in the gallbladder and the return was clear in nature indicating an hydrops of the gallbladder the grasper was used to close off or we had initially gone into the aspirating area the gallbladder was elevated blunt dissection was used to free more of the omentum that was encasing the gallbladder all the way down to the neck of the gallbladder the neck tip was distended was not sure if the patient may have a large stone embedded at the takeoff of the cystic duct we were able then to free up most of the fatty tissue around the neck of the gallbladder identifying inferiorly the cystic duct which appeared to be minimally distended we then with dissected free also identify the artery which we clipped proximally twice and once distally at the edge of the gallbladder 5 mm clip was then used to clip the cystic duct at the edge of the gallbladder at the takeoff and a small opening cystic duct was made after we identified and exposed approximately 2 cm or so and could see the distal aspect going into the common bile duct #4 urethral catheter transversing the abdominal wall with some difficulty and multiple attempts we were able to place it in the cystic duct which we took x- rays and visualized that the patient initial x-ray showed the intrahepatic duct with some extravasation of the dye but further x-rays revealed that we could see a very long common bile duct going into the duodenum without any gross filling defects at this point the cholangiocatheter was removed the cystic duct was doubly secured with 5 mm clips proximal to the common bile duct and we elevated the gallbladder this point we was electrocautery to free and try to keep the gallbladder intact the wall was extremely thickened and necrotic in areas we try to avoid getting into the gallbladder bone 1 area we did get in and basically had a very thick viscous bile with fine granular consistent with bilirubin aid at stones the gallbladder was removed in total from the liver placed in an Endopouch and actually we enlarged the 5 mm trocar in the epigastric area to a 12 mm so we could remove the really thick walled gallbladder and contents cultures will be taken of the gallbladder the subhepatic suprahepatic area was irrigated copiously even using a larger aspiration system to try to remove as much as possible of bilious caviar type of drainage that we had seen come out of the gallbladder that we elected to place a 19 Dainel drain the subhepatic leak taken out to the right upper quadrant lateral trocar attaching the skin edge with 2-0 silk suture prior to placing the catheter we have placed our camera right upper quadrant lateral trocar site to visualize her initial entry into the abdominal wall and there was no adhesions identified to the point of entry the drain was placed underneath the liver down towards Morison's pouch after irrigating completely suction out as much as possible blood clot from the dissection the bile and caviar stones. Individual trocars removed under direct visualization in the last the umbilical trocar fascial stitch 0 Vicryl suture was used through the epigastric area 4-0 Monocryl subcuticularly Steri-Strips applied procedure was tolerated well by the patient estimated blood loss 50 cc Addendum Lucie MILTON was present throughout the procedure with help retraction exposure wound closure Spoke with his Shell after the procedure in the waiting area Surgeon Ramone Mayers MD, FACS [employer] Lucie MILTON Estimated Blood Loss 50 Findings Consistent with Post-Op Diagnosis Acute gangrenous cholecystitis Specimens Gallbladder and cannot Drains 19 Daniel drain Complications Poor suction system Indications Acute cholecystitis cholelithiasis Description of Procedure merda I attest to the content of the Intraoperative Record and any orders documented therein. Any exceptions are noted below.
[2023-09-29] MEDS: fentaNYL citrate PF 100 MCG/2 ML VIAL ONE (10:19)
[2023-09-29] MEDS: HYDROmorphone INJ 1 MG/ML SYRINGE IV PRN (10:20)
--- NOTE | 2023-09-29 10:40 | Anesthesiology Progress Note ---
Date of Service September 29, 2023 Anesthesia Post Procedure Vital Signs Vital Signs: Temp Pulse Pulse Resp BP Pulse Ox O2 Del Method 09/29/23 10:25 68 17 107/62 94 Oxymask 09/29/23 10:15 73 17 111/62 95 Oxymask 09/29/23 10:05 76 18 114/65 95 Oxymask 09/29/23 09:55 68 20 108/64 97 Oxymask 09/29/23 09:45 36.2 C L 75 17 100/73 96 Oxymask 09/28/23 21:45 Room Air 09/28/23 21:19 36.6 C 75 16 121/73 99 Room Air 09/28/23 16:30 Room Air 09/28/23 15:24 36.7 C 66 16 102/64 96 Room Air O2 Flow Rate 09/29/23 10:25 4 09/29/23 10:15 4 09/29/23 10:05 4 09/29/23 09:55 4 09/29/23 09:45 6 09/28/23 21:45 09/28/23 21:19 09/28/23 16:30 09/28/23 15:24 Pain Intensity Abdomen: Pain Intensity: 5 Transfer of Care Handoff Completed per policy Notes Mental Status: alert / awake / arousable Patient Amnestic to Procedure: Yes Nausea / Vomiting: adequately controlled Pain: adequately controlled Airway Patency, RR, SpO2: stable & adequate BP & HR: stable & adequate Hydration State: stable & adequate Anesthetic Complications: no major complications apparent
[2023-09-29] MEDS ORDERED: oxyCODONE HCL IR 5 MG TAB (IMMEDIATE RELEASE) PO PRN (11:04)
[2023-09-29] MEDS ORDERED: ACETAMINOPHEN 325 MG TAB PO PRN (11:04)
[2023-09-29] MEDS ORDERED: MoRPHine SULFATE 2 MG/ML CARP IV PRN (11:04)
[2023-09-29] MEDS ORDERED: MoRPHine SULFATE 4 MG/ML 1 ML CARP\\VIAL IV PRN (11:04)
[2023-09-29] MEDS: HYDROmorphone INJ 1 MG/ML SYRINGE ONE (11:29)
--- NOTE | 2023-09-29 17:08 | Hospitalist Progress Note ---
Date of Service September 29, 2023 Assessment & Plan (1) Acute cholecystitis: (2) Diverticulitis: (3) Acute kidney injury: (4) Acute dehydration: (5) BPH w urinary obs/LUTS: (6) Insomnia: (7) Anxiety: Plan Acute cholecystitis/acute sigmoid diverticulitis- -postop day 0 from laparoscopic cholecystectomy -Transition to clear liquids, management per general surgery -Continue Cipro 400 mg IV every 12 hours, in general antibiotics to be stopped the day following cholecystectomy, defer to general surgery recommendations -Continue Flagyl 500 mg IV every 8 hours -Noted penicillin allergy -Zofran 4 mg IV every 6 hours as needed -Acetaminophen 1 g IV every 8 hours as needed for mild pain or fever -Morphine sulfate IV every 2 hours as needed for moderate to severe pain -Pantoprazole 40 mg IV daily -Continue maintenance fluids of normal saline at 100 mL/h -Appreciate Gen Surg Recs and treatment Acute kidney injury (resolved) -Creatinine 1.73, with baseline 1.30, resolved -IV fluids as noted above Insomnia/anxiety- -Continue home insomnia medications, hold ambien on day of surgery BPH with LUTS- -Continue Flomax Disposition: Continue on MedSurg DVT prophylaxis: Lovenox Diet: Clears CODE STATUS: Full code Admission and Anticipated Discharge Date Admission Date: September 27, 2023 Supervising Physician Co-Signing Physician Notes ATTESTATION I also saw the patient and confirmed sanchez portions of the history and exam. I agree with the impression and plan in the resident documentation, and as s ummarized below. Patient is seen in his room just after returning from postop holding. He is still somewhat sleepy from the sedation. EXAM 125/80, 69, 16, 36.9, 97% on nasal cannula 3 L/min Alert and oriented. Heart regular Respirations nonlabored DATA Labs White blood cell count 15.11, continue to trend down Sodium 137, potassium 3.8, BUN 17, creatinine 1.2 Micro Blood cultures collected 09/27/2023 showed no growth at 24 hours IMPRESSION & PLAN Acute cholecystitis, status postcholecystectomy, postop day 0 Diverticulitis ALYSSA, resolved Postop orders per surgery Continue ciprofloxacin and Flagyl for diverticulitis Additional per resident documentation Subjective Patient seen at bedside after cholecystectomy. Patient appears well but is lethargic and keeps dozing off during interview. No meaningful HPI gathered at this time. Patient appears comfortable. Review of Systems Review of Systems: Unobtainable due to cognitive status Physical Exam Physical Exam: The patient is awake but somnolent, well developed and well nourished, normocephalic and atraumatic, lying in bed and in no acute distress. HEENT--PERRL, EOMI, mucous membranes and oropharynx dry. Neck--supple. No JVD. No bruits. Thyroid normal, trachea midline, no adenopathy. Heart--normal S1 and S2. No murmurs, rubs or gallops. Lungs--clear bilaterally, no respiratory distress, no accessory muscle use. Abdomen--normal bowel sounds and soft. Extremities--No edema. Dermatologic--normal skin turgor, normal color, no abnormal lymph nodes, no rash. Results & Data Results & Data Vital Signs (Past 12 Hours) Vital Signs Temp Pulse Pulse Resp BP Pulse Ox O2 Del Method 09/29/23 16:23 36.9 C 69 16 125/80 97 Nasal Cannula 09/29/23 13:47 36.7 C 67 15 114/72 95 Nasal Cannula 09/29/23 11:50 36.6 C 64 16 108/72 95 Nasal Cannula 09/29/23 11:20 36.6 C 60 17 112/75 94 Nasal Cannula 09/29/23 10:50 Nasal Cannula 09/29/23 10:50 36.7 C 63 16 110/67 93 Nasal Cannula 09/29/23 10:45 70 15 110/64 93 Oxymask 09/29/23 10:35 36.9 C 66 16 102/63 94 Oxymask 09/29/23 10:25 68 17 107/62 94 Oxymask 09/29/23 10:15 73 17 111/62 95 Oxymask 09/29/23 10:05 76 18 114/65 95 Oxymask 09/29/23 09:55 68 20 108/64 97 Oxymask 09/29/23 09:45 36.2 C L 75 17 100/73 96 Oxymask O2 Flow Rate 09/29/23 16:23 3 09/29/23 13:47 3 09/29/23 11:50 3 09/29/23 11:20 3 09/29/23 10:50 3 04/21/24 10:50 3 09/29/23 10:45 3 09/29/23 10:35 3 09/29/23 10:25 4 09/29/23 10:15 4 09/29/23 10:05 4 09/29/23 09:55 4 09/29/23 09:45 6 (6) Insomnia Insomnia type: primary Qualified Code(s): F51.01 - Primary insomnia
[2023-09-29] MEDS: oxyCODONE HCL IR 5 MG TAB (IMMEDIATE RELEASE) PO PRN (17:59)
[2023-09-29] MEDS: ACETAMINOPHEN 1,000 MG/100 ML VIAL IV PRN (20:50)
[2023-09-29] MEDS: MELATONIN 3 MG TAB PO PRN (22:03)
--- NOTE | 2023-09-29 22:55 | Electrocardiogram Report ---
Test Reason : Blood Pressure : / mmHG Vent. Rate : 074 BPM Atrial Rate : 074 BPM P-R Int : 152 ms QRS Dur : 096 ms QT Int : 358 ms P-R-T Axes : -06 -18 021 degrees QTc Int : 397 ms Normal sinus rhythm Normal ECG When compared with ECG of 13-SEP-2017 07:46, No significant change was found Confirmed by Edvin Hauser ([id number]) on 09/29/2023 10:55:06 PM Referred By: Ed Berumen Confirmed By:Edvin Hauser
--- NOTE | 2023-09-30 07:34 | Hospitalist Progress Note ---
"Date of Service September 30, 2023 Assessment & Plan (1) Acute cholecystitis: (2) Diverticulitis: (3) Acute kidney injury: (4) Acute dehydration: (5) BPH w urinary obs/LUTS: (6) Insomnia: (7) Anxiety: Plan Enzo is a 58M with PMH of BPH w/ LUTS, HTN, nephrolithiasis, insomnia, homocystinemia, and anxiety who is admitted on POD #! following cholecystectomy. Acute cholecystitis | Acute sigmoid diverticulitis -POD #1 from laparoscopic cholecystectomy - ADAT per general surgery - Continue Cipro and Flagyl per general surgery (patient with PCN allergy) - Pain Mgmt: Continue Zofran, Acetaminophen IV, and Morphine IV as needed - Continue Pantoprazole 40 mg IV daily - Continue mIVF @ 100 mL/hr - Appreciate ongoing Gen Surg recommendations Acute kidney injury (resolved) -Creatinine 1.73, with baseline 1.30, resolved -IV fluids as noted above Insomnia/anxiety -Continue home insomnia medications, hold ambien on day of surgery, resume POD #1 BPH with LUTS- -Continue Flomax Disposition: Continue on MedSurg DVT prophylaxis: Lovenox Diet: Clears CODE STATUS: Full code Admission and Anticipated Discharge Date Admission Date: September 27, 2023 Supervising Physician Co-Signing Physician Notes I personally examined the patient and verified all sanchez points of history and exam, discussed case, and agree with decision making with Dr Pulido some abdominal pain although mostly just with movement. ate clears well waiting on regular when i see him. didn't sleep well vitals noted nad heent nc at mmm breathing unlabored no accessory muscles good effort skin no rashes no pallor or icterus neuro no focal deficits cholecystitis - postop. continue IV abx. advancing diet. improving. appreciate surgical guidance. otherwise as above Subjective 09/29: Patient evaluated at bedside POD #1. Patient notes difficulty sleeping overnight, but states his pain is well controlled. Patient appeared comfortable on arrival, only noting ace-incisional pain. Patient continues to urinate well and ambulate to the bathroom. Has not moved bowels since procedure but is passing gas. Patient notes improvement in his appetite, requests to transition to something more substantial. No chest pain, dyspnea, headaches, or nausea. Physical Exam Physical Exam: Gen: AOx3, NAD, fatigued HEENT: PERRL, EOMI, mucous membranes and oropharynx dry. Neck: Supple, no adenopathy Heart: RRR, normal S1 and S2. No murmurs, rubs or gallops. Lungs: Non-labored, CTAB, no wheezing/rhonchi/rales Abdomen: Active bowel sounds, ace-incisional tenderness, post-surgical bandages intact w/o surrounding erythema Extremities: No edema. Dermatologic: Normal skin turgor, normal color, no rash. Results & Data Results & Data Vital Signs (Past 12 Hours) Vital Signs Temp Pulse Resp BP Pulse Ox O2 Del Method O2 Flow Rate 09/30/23 06:04 36.7 C 59 L 16 111/72 91 Room Air 09/30/23 01:48 36.5 C 59 L 16 101/66 94 Nasal Cannula 2 09/29/23 22:00 37.5 C 65 16 102/63 93 Nasal Cannula 2 09/29/23 20:10 Nasal Cannula 2 Resident Activity Tracking Resident Involvement: Resident Care Provided Care Provided: Adult Hospital Medicine (6) Insomnia Insomnia type: primary Qualified Code(s): F51.01 - Primary insomnia"
[2023-09-30 07:40] LABS: Basophils # (auto) 0.04 K/uL (0.00-0.20); Basophils % (auto) 0.3 %; Eosinophils # (auto) 0.04 K/uL (0.00-0.50); Eosinophils % (auto) 0.3 %; Hematocrit (blood only) 38.6 % (42.0-52.0); Hemoglobin 12.6 g/dl (14.0-18.0); Immature Granulocytes # (auto) 0.18 K/uL (0.01-0.20); Immature Granulocytes % (auto) 1.2 %; Lymphocytes # (auto) 1.57 K/uL (1.20-3.40); Lymphocytes % (auto) 10.3 %; Mean Corpuscular Hemoglobin 29.1 pg (25.0-34.0); Mean Corpuscular Hgb Conc 32.6 g/dL (32.0-36.0); Mean Corpuscular Volume 89.1 fL (80.0-100.0); Mean Platelet Volume 8.9 fL (9.4-12.4); Monocytes # (auto) 0.99 K/uL (0.11-0.59); Monocytes % (auto) 6.5 %; Neutrophils # (auto) 12.35 K/uL (1.40-6.50); Neutrophils % (auto) 81.4 %; Platelet Count 212 K/uL (130-400); RDW Coefficient of Variation 14.1 % (11.5-14.5); RDW Standard Deviation 45.8 fL (36.4-46.3); Red Blood Count 4.33 M/uL (4.70-6.10); White Blood Count 15.17 K/ul (4.8-10.8)
--- NOTE | 2023-09-30 07:53 | Surgery Progress Note ---
Date of Service September 30, 2023 Assessment & Plan (1) Acute cholecystitis: Plan: POD#1 lap cesar WBC 15 (15). LFTs are pending. vitals stable raul drain serosang(continue today), abdomen with expected ace incisional discomfort to palpation okay to advance diet as tolerates continue IV abx today, will likely recommend keeping in house today for ongoing abx as was a bad gallbladder recommend OOB as tolerates and pulmonary toilet pt seen/examined with dr. ruffin Admission and Anticipated Discharge Date Admission Date: September 27, 2023 Supervising Physician Co-Signing Physician Notes op findings discussed with pat and last evening on post op check expect pt to be here 24- 48 hours and will send home on po antibiotics ( intraop cultures pending) Subjective Patient reports he did not sleep well last night, says he usually takes ambien. Having some post op discomfort. Otherwise eating. Has ambulated in room, but not in the hallways yet. Physical Exam Physical Exam: awake, but drowsy. alert Gastrointestinal (Abdomen): Inspection/Auscultation: + abdominal surgical incision (c/d/i) and + abdominal surgical drain present (serosang) Percussion/Palpation: + abdomen tender (expected ace incisional discomfort) and abdomen soft Results & Data Vital Signs (Past 12 Hours) Vital Signs Temp Pulse Resp BP Pulse Ox O2 Del Method O2 Flow Rate 09/30/23 07:35 98.1 F 56 L 16 110/70 91 Room Air 09/30/23 06:04 98.1 F 59 L 16 111/72 91 Room Air 09/30/23 01:48 97.7 F 59 L 16 101/66 94 Nasal Cannula 2 09/29/23 22:00 99.5 F 65 16 102/63 93 Nasal Cannula 2 09/29/23 20:10 Nasal Cannula 2 PG Care Time/CCT Total # of Minutes Spent Total Time Spent with Patient: Total time spent is greater than 50% in coordination of care (as documented) at patient's floor/unit and/or counseling patient: Coding Level of Care Code 70246 Post Operative Follow-Up Diagnoses Acute cholecystitis K81.0
[2023-09-30 08:15] LABS: Albumin Globulin Ratio 0.9 (0.9-2); Albumin Level 2.9 gm/dl (3.4-5.0); BUN Creatinine Ratio 14.5 (10-20); Bilirubin,Total 0.7 mg/dl (0.2-1.0); Calcium 9.4 mg/dl (8.6-10.3); Creatinine Clr Calc Pharmacy 82.9 ml/min; Est GFR (African American) 79.2 ml/min; Est GFR (Non-African American) 68.3 ml/min; Globulin 3.2 gm/dl (2.5-4.0); Magnesium 1.8 mg/dl (1.7-2.4); Total Protein 6.1 gm/dl (6.0-8.3)
--- NOTE | 2023-09-30 13:29 | Billing Data ---
Date of Service September 30, 2023 Coding Level of Care Code 30093 SUB INP/OBS CARE
--- NOTE | 2023-10-01 06:57 | Hospitalist Progress Note ---
"Date of Service October 01, 2023 Assessment & Plan (1) Acute cholecystitis: (2) Diverticulitis: (3) Acute kidney injury: (4) Acute dehydration: (5) BPH w urinary obs/LUTS: (6) Insomnia: (7) Anxiety: Plan Enzo is a 58M with PMH of BPH w/ LUTS, HTN, nephrolithiasis, insomnia, homocystinemia, and anxiety who is admitted on POD #! following cholecystectomy. Acute cholecystitis | Acute sigmoid diverticulitis -POD #1 from laparoscopic cholecystectomy - ADAT per general surgery - Continue Cipro and Flagyl per general surgery (patient with PCN allergy) - Pain Mgmt: Continue Zofran, Acetaminophen IV, and Morphine IV as needed - Continue Pantoprazole 40 mg IV daily - Continue mIVF @ 100 mL/hr - Appreciate ongoing Gen Surg recommendations Acute kidney injury (resolved) -Creatinine 1.73, with baseline 1.30, resolved -IV fluids as noted above Insomnia/anxiety -Continue home insomnia medications, hold ambien on day of surgery, resume POD #1 BPH with LUTS- -Continue Flomax Disposition: Continue on MedSurg DVT prophylaxis: Lovenox Diet: Clears CODE STATUS: Full code Admission and Anticipated Discharge Date Admission Date: September 27, 2023 Subjective 09/29: Patient evaluated at bedside POD #1. Patient notes difficulty sleeping overnight, but states his pain is well controlled. Patient appeared comfortable on arrival, only noting ace-incisional pain. Patient continues to urinate well and ambulate to the bathroom. Has not moved bowels since procedure but is passing gas. Patient notes improvement in his appetite, requests to transition to something more substantial. No chest pain, dyspnea, headaches, or nausea. 09/30: Physical Exam Physical Exam: Gen: AOx3, NAD, fatigued HEENT: PERRL, EOMI, mucous membranes and oropharynx dry. Neck: Supple, no adenopathy Heart: RRR, normal S1 and S2. No murmurs, rubs or gallops. Lungs: Non-labored, CTAB, no wheezing/rhonchi/rales Abdomen: Active bowel sounds, ace-incisional tenderness, post-surgical bandages intact w/o surrounding erythema Extremities: No edema. Dermatologic: Normal skin turgor, normal color, no rash. Results & Data Results & Data Vital Signs (Past 12 Hours) Vital Signs Temp Pulse Resp BP Pulse Ox O2 Del Method 09/30/23 21:52 36.7 C 75 16 121/73 92 Room Air 09/30/23 19:46 Room Air Resident Activity Tracking Resident Involvement: Resident Care Provided Care Provided: Adult Hospital Medicine (6) Insomnia Insomnia type: primary Qualified Code(s): F51.01 - Primary insomnia"
--- NOTE | 2023-10-01 07:18 | Surgery Progress Note ---
Date of Service October 01, 2023 Assessment & Plan (1) Acute cholecystitis: Plan: Second postop day status post laparoscopic cholecystectomy for acute gangrenous cholecystitis Patient's somnolent will DC the Jr oral analgesics and on board morphine had been stopped yesterday Path and micro still pending Plan DC Jr Increase diet and activity Admission and Anticipated Discharge Date Admission Date: September 27, 2023 Subjective Been up and around walking the hallways no flatus yet Tolerated liquids yesterday Physical Exam Physical Exam: Somnolent responds appropriately but having a difficult time just staying awake The abdomen is benign no tenderness Daniel drainage serous sanguinous nonbilious Results & Data Vital Signs (Past 12 Hours) Vital Signs Temp Pulse Resp BP Pulse Ox O2 Del Method 09/30/23 21:52 36.7 C 75 16 121/73 92 Room Air 09/30/23 19:46 Room Air Laboratory Results Pending results
[2023-10-01 08:22] LABS: Basophils # (auto) 0.09 K/uL (0.00-0.20); Basophils % (auto) 0.5 %; Eosinophils # (auto) 0.05 K/uL (0.00-0.50); Eosinophils % (auto) 0.3 %; Hematocrit (blood only) 42.4 % (42.0-52.0); Hemoglobin 13.8 g/dl (14.0-18.0); Immature Granulocytes # (auto) 0.21 K/uL (0.01-0.20); Immature Granulocytes % (auto) 1.2 %; Lymphocytes # (auto) 1.88 K/uL (1.20-3.40); Lymphocytes % (auto) 11.1 %; Mean Corpuscular Hemoglobin 28.9 pg (25.0-34.0); Mean Corpuscular Hgb Conc 32.5 g/dL (32.0-36.0); Mean Corpuscular Volume 88.7 fL (80.0-100.0); Mean Platelet Volume 8.9 fL (9.4-12.4); Monocytes # (auto) 1.31 K/uL (0.11-0.59); Monocytes % (auto) 7.7 %; Neutrophils # (auto) 13.38 K/uL (1.40-6.50); Neutrophils % (auto) 79.2 %; Platelet Count 281 K/uL (130-400); RDW Coefficient of Variation 14.3 % (11.5-14.5); RDW Standard Deviation 45.8 fL (36.4-46.3); Red Blood Count 4.78 M/uL (4.70-6.10); White Blood Count 16.92 K/ul (4.8-10.8)
[2023-10-01 08:38] LABS: Albumin Globulin Ratio 0.8 (0.9-2); BUN Creatinine Ratio 14.3 (10-20); Bilirubin,Total 0.5 mg/dl (0.2-1.0); Calcium 9.3 mg/dl (8.6-10.3); Creatinine Clr Calc Pharmacy 86.6 ml/min; Est GFR (African American) 83.5 ml/min; Globulin 3.7 gm/dl (2.5-4.0); Potassium 3.9 mmol/L (3.5-5.1); Total Protein 6.7 gm/dl (6.0-8.3)
[2023-10-01] MEDS: ONDANSETRON INJ 2 MG/ML 2 ML VIAL IV PRN (15:49)
[2023-10-01 16:41] LABS: Babesia microti DNA Not Detected (Not Detected)
--- NOTE | 2023-10-01 18:53 | Hospitalist Progress Note ---
"Date of Service October 01, 2023 Assessment & Plan (1) Acute cholecystitis: (2) Diverticulitis: (3) Acute kidney injury: (4) Acute dehydration: (5) BPH w urinary obs/LUTS: (6) Insomnia: (7) Anxiety: Plan Enzo is a 58M with PMH of BPH w/ LUTS, HTN, nephrolithiasis, insomnia, homocystinemia, and anxiety who is admitted on POD #! following cholecystectomy. Acute cholecystitis | Acute sigmoid diverticulitis -POD #2 from laparoscopic cholecystectomy - ADAT per general surgery - Continue Cipro and Flagyl per general surgery (patient with PCN allergy) -Ongoing pain control IV fluids and supportive care. Anticipate slow improveme nt Acute kidney injury (resolved) -Creatinine 1.73, with baseline 1.30, resolved -IV fluids as noted above until p.o. intake improved Insomnia/anxiety BPH with LUTS- -Continue Flomax Disposition: Continue on MedSurg anticipate ability to be discharged to home once symptoms improve more DVT prophylaxis: Lovenox Diet: Regular CODE STATUS: Full code Admission and Anticipated Discharge Date Admission Date: September 27, 2023 Subjective Still having decent amount of abdominal pain but better. Better with movement although this still hurts the most. Had a bit of a bowel movement some flatus. Eating but has very poor appetitebut no postprandial pain no nausea no vomiting. Review of Systems Review of Systems: All systems reviewed & are unremarkable except as noted in HPI & below Physical Exam Physical Exam: General He is awake and alert pleasant no distress. HEENT normocephalic atraumatic mucous membranes moist. Breathing unlabored no accessory muscle use good effort. Skin shows no rashes no pallor or icterus. Neuro without focal deficits. Results & Data Results & Data Vital Signs (Past 12 Hours) Vital Signs Temp Pulse Resp BP Pulse Ox O2 Del Method 10/01/23 16:01 98.2 F 73 18 131/87 93 Room Air 10/01/23 11:15 77 18 125/87 93 Room Air 10/01/23 07:00 97.9 F 82 20 100/62 92 Room Air PG Care Time/CCT Total # of Minutes Spent Total Time Spent with Patient: Total time spent is greater than 50% in coordination of care (as documented) at patient's floor/unit and/or counseling patient: Coding Level of Care Code 54185 SUB INP/OBS CARE MIN Diagnoses Acute cholecystitis K81.0 Diverticulitis K57.92 Acute kidney injury N17.9 Acute dehydration E86.0 BPH w urinary obs/LUTS N40.1; N13.8 Primary insomnia F51.01 Insomnia type: primary Anxiety F41.9 (6) Insomnia Insomnia type: primary Qualified Code(s): F51.01 - Primary insomnia"
--- NOTE | 2023-10-02 07:37 | Hospitalist Progress Note ---
"Date of Service October 02, 2023 Assessment & Plan (1) Acute cholecystitis: (2) Diverticulitis: (3) Acute kidney injury: (4) Acute dehydration: (5) BPH w urinary obs/LUTS: (6) Insomnia: (7) Anxiety: Plan Enzo is a 58M with PMH of BPH w/ LUTS, HTN, nephrolithiasis, insomnia, homocystinemia, and anxiety who is admitted on POD 3 following cholecystectomy. Acute cholecystitis | Acute sigmoid diverticulitis - POD #3 from laparoscopic cholecystectomy for gangrenous cholecystitis - Leukocytosis downtrending - Regular diet ongoing, patient with minimal appetite, denies pain following meals - Continue Cipro and Flagyl per general surgery (patient with PCN allergy), anticipate PO course upon discharge - Ongoing pain control IV fluids and supportive care. - Anticipate slow improvement - potential dc tomorrow Acute kidney injury (resolved) - Creatinine 1.73, with baseline 1.30, resolved - IV fluids as noted above until p.o. intake improved Insomnia/anxiety - Patient continue to struggle with sleep - Will continue home filippo-agonist BPH with LUTS- - Continue Flomax Disposition: Continue on MedSurg anticipate ability to be discharged to home once symptoms improve more DVT prophylaxis: Lovenox Diet: Regular CODE STATUS: Full code Admission and Anticipated Discharge Date Admission Date: September 27, 2023 Supervising Physician Co-Signing Physician Notes I personally examined the patient and verified all sanchez points of history and exam, discussed case, and agree with decision making with Dr Pulido didn't sleep well overnight, sleeping now. notes he ate about 1/3 of dinner. vitals noted nad heent nc at mmm breathing unlabored no accessory muscles good effort skin no rashes no pallor or icterus neuro no focal deficits cholecystitis - postop. continue IV abx. awaiting cultures. tolerating diet reasonably. improving. appreciate surgical guidance. otherwise as above. hopefully home soon. ambulation for DVT proph Subjective 10/02/23: Patient sitting at bedside this morning. He notes significant frustration with his lack of sleep in the hospital and attributes it to not getting his home Ativan. He continuse to note incisional pain with turning, but notes that overall his pain is improved. He notes anxiety regarding moving his bowels and is agreeable to trial a stool softener. He continues to note that he is not eating much, but states this is because he is not enjoying the food. Denies fever, chills, chest pain, dyspnea, nausea, or emesis. Endorses flatus. Physical Exam Physical Exam: Gen: AOx3, NAD, fatigued HEENT: NCAT, MMM Neck: Supple, no adenopathy Heart: RRR, normal S1 and S2. No murmurs, rubs or gallops. Lungs: Non-labored, CTAB, no wheezing/rhonchi/rales Abdomen: Active bowel sounds, ace-incisional tenderness, post-surgical bandages intact w/o surrounding erythema Extremities: No edema. Dermatologic: Normal skin turgor, normal color, no rash. Results & Data Results & Data Vital Signs (Past 12 Hours) Vital Signs Temp Pulse Resp BP Pulse Ox O2 Del Method 10/01/23 20:42 37.3 C 79 16 118/74 93 Room Air 10/01/23 20:10 Room Air Resident Activity Tracking Resident Involvement: Resident Care Provided Care Provided: Adult Hospital Medicine (6) Insomnia Insomnia type: primary Qualified Code(s): F51.01 - Primary insomnia"
[2023-10-02 07:59] LABS: Basophils # (auto) 0.11 K/uL (0.00-0.20); Basophils % (auto) 0.8 %; Eosinophils # (auto) 0.24 K/uL (0.00-0.50); Eosinophils % (auto) 1.7 %; Hematocrit (blood only) 39.2 % (42.0-52.0); Hemoglobin 13.1 g/dl (14.0-18.0); Immature Granulocytes # (auto) 0.24 K/uL (0.01-0.20); Immature Granulocytes % (auto) 1.7 %; Lymphocytes # (auto) 1.78 K/uL (1.20-3.40); Lymphocytes % (auto) 12.5 %; Mean Corpuscular Hemoglobin 29.1 pg (25.0-34.0); Mean Corpuscular Hgb Conc 33.4 g/dL (32.0-36.0); Mean Corpuscular Volume 87.1 fL (80.0-100.0); Mean Platelet Volume 8.8 fL (9.4-12.4); Monocytes # (auto) 1.48 K/uL (0.11-0.59); Monocytes % (auto) 10.4 %; Neutrophils # (auto) 10.41 K/uL (1.40-6.50); Neutrophils % (auto) 72.9 %; Platelet Count 280 K/uL (130-400); RDW Coefficient of Variation 14.3 % (11.5-14.5); RDW Standard Deviation 45.8 fL (36.4-46.3); White Blood Count 14.26 K/ul (4.8-10.8)
[2023-10-02 08:19] LABS: Albumin Globulin Ratio 0.8 (0.9-2); Albumin Level 2.7 gm/dl (3.4-5.0); BUN Creatinine Ratio 13.6 (10-20); Bilirubin,Total 0.4 mg/dl (0.2-1.0); Creatinine Clr Calc Pharmacy 94.2 ml/min; Est GFR (African American) 92.4 ml/min; Est GFR (Non-African American) 79.7 ml/min; Globulin 3.2 gm/dl (2.5-4.0); Potassium 3.8 mmol/L (3.5-5.1); Total Protein 5.9 gm/dl (6.0-8.3)
--- NOTE | 2023-10-02 08:52 | Surgery Progress Note ---
Date of Service October 02, 2023 Assessment & Plan (1) Acute cholecystitis: Plan: POD#3 lap cholecystectomy for acute gangrenous cholecystitis WBC 14, Hbg 13, LFTs are all within normal limits Making slow improvement On PO pain meds, on regular diet ALBERT drain serosang- this will remain in place upon discharge Intraop micro showing GPC's, continue abx and will need a course of PO to be discharged with at home Likely needs one more day in house, hopefully dispo tomorrow Admission and Anticipated Discharge Date Admission Date: September 27, 2023 Supervising Physician Co-Signing Physician Notes As per Milagros Rosado physician metallurgical laboratory assistant Patient feels much better today has had a few bowel movements denies any abdomi nal pain states has not had anything for pain since yesterday Path report is pending Sensitivities to intraoperative cultures are pending May be able to be discharged tomorrow on p.o. antibiotics for another 5 days Subjective Patient resting in bed.Says he is tired. Tolerating small amount of regular food. Passing a little bit of gas and some small BMs. Said he walked the hallways a few times yesterday. Physical Exam Physical Exam: awake, resting Respiratory: normal respiratory effort Gastrointestinal (Abdomen): Inspection/Auscultation: + abdominal surgical incision (c/d/i) and + abdominal surgical drain present (serosang) Percussion/Palpation: + abdomen tender (expected ace incisional discomfort) and abdomen soft Results & Data Vital Signs (Past 12 Hours) Vital Signs Temp Pulse Resp BP Pulse Ox O2 Del Method 10/02/23 07:43 97.9 F 72 16 134/88 92 Room Air PG Care Time/CCT Total # of Minutes Spent Total Time Spent with Patient: Total time spent is greater than 50% in coordination of care (as documented) at patient's floor/unit and/or counseling patient: Coding Level of Care Code 61192 Post Operative Follow-Up Diagnoses Acute cholecystitis K81.0
[2023-10-02] MEDS ORDERED: POLYETHYLENE (MIRALAX) 17 GM PACK PO PRN (10:48)
--- NOTE | 2023-10-02 17:09 | Billing Data ---
Date of Service October 02, 2023 Coding Level of Care Code 35589 SUB INP/OBS CARE
[2023-10-02] MEDS: ZOLPIDEM TARTRATE 10 MG TAB PO PRN (20:51)
--- NOTE | 2023-10-03 06:32 | Surgery Progress Note ---
Date of Service October 03, 2023 Assessment & Plan (1) Acute cholecystitis: Plan: POD #3 status post laparoscopic cholecystectomy cholangiogram for acute cholecystitis Lab this morning is pending Will reevaluate later this morning but most likely can be discharged today if okay with the medical service we will remove the drain prior to discharge and follow-up in our office 1 week Will await lab to decide whether or not to send him home on p.o. antibiotics Admission and Anticipated Discharge Date Admission Date: September 27, 2023 Subjective No complaints had a good day yesterday walked around was able to tolerate a diet Physical Exam Physical Exam: But barely keep his eyes open somnolent but responds appropriately The abdomen is soft Daniel drainage serous sanguinous nonbilious The lab pending this morning Results & Data Vital Signs (Past 12 Hours) Vital Signs Temp Pulse Resp BP Pulse Ox O2 Del Method 10/02/23 19:31 37.2 C 72 16 124/81 94 Room Air
--- NOTE | 2023-10-03 07:14 | Discharge Summary ---
"Date of Service October 03, 2023 Admission HPI Per Admitting Provider The patient is a 58-year-old male with past medical history including BPH with LUTS, colon polyps, insomnia, and anxiety. He presents to the emergency department with symptoms as noted above. Workup in the emergency department included a CT scan which suggested acute cholecystitis, and mild acute diverticulitis. He was placed on Cipro 400 mg IV, Flagyl 500 mg IV, received 1500 mL normal saline bolus, and was then referred for evaluation for admission. He was seen by general surgery in the emergency department, who had tentatively planned to have a cholecystectomy performed the following day Admission Exam Per Admitting Provider The patient is awake, alert and oriented 3, well developed and well nourished, normocephalic and atraumatic, lying in bed and in no acute distress. HEENT--PERRL, EOMI, mucous membranes and oropharynx dry. Neck--supple. No JVD. No bruits. Thyroid normal, trachea midline, no adenopathy. Heart--normal S1 and S2. No murmurs, rubs or gallops. Lungs--clear bilaterally, no respiratory distress, no accessory muscle use. Abdomen--normal bowel sounds and soft. Nontender. Nondistended. Mildly obese Extremities--No edema. Dermatologic--normal skin turgor, normal color, no abnormal lymph nodes, no rash. Neurologic--cranial nerves II through XII grossly intact. Rheumatologic--normal range of motion. Psychiatric--normal affect. Principal Diagnosis cholecystitis Discharge Exam Gen: AOx3, NAD, fatigued HEENT: NCAT, MMM Neck: Supple, no adenopathy Heart: RRR, normal S1 and S2. No murmurs, rubs or gallops. Lungs: Non-labored, CTAB, no wheezing/rhonchi/rales Abdomen: Active bowel sounds, ace-incisional tenderness, post-surgical bandages intact w/o surrounding erythema Extremities: No edema. Dermatologic: Normal skin turgor, normal color, no rash. Discharge Data Allergies Allergy/AdvReac Type Severity Reaction Status Date / Time Penicillins Allergy Unknown CAN'T Verified 09/27/23 17:20 REMEMBER Consultations 09/27/23 18:00 ED Decision to Admit Stat 09/27/23 18:36 Consult General Surgery Stat Procedures Performed Operation Date: 09/29/23 07:30 Actual Procedures p Laparoscopic Cholecystectomy with cholangiogram(Not Applicable) - Ramone Mayers MD, FACS Ordered Studies 09/27/23 16:29 CT abd pelvis wo con Stat 09/29/23 [place] cholangiogram OR Routine Hospital Course (1) Acute cholecystitis: (2) Diverticulitis: (3) Acute kidney injury: (4) Acute dehydration: (5) BPH w urinary obs/LUTS: (6) Insomnia: (7) Anxiety: Plan Enzo is a 58M with PMH of BPH w/ LUTS, HTN, nephrolithiasis, insomnia, homocystinemia, and anxiety who is admitted on POD 3 following cholecystectomy. Acute cholecystitis | Acute sigmoid diverticulitis - POD #4 from laparoscopic cholecystectomy for gangrenous cholecystitis - Leukocytosis downtrending, follow up CBC outpatient - Regular diet ongoing, patient with slow improving appetite, denies pain following meals - Continue Cipro and Flagyl per general surgery (patient with PCN allergy), anticipate PO course upon discharge - Ongoing pain control IV fluids and supportive care, no narcotic pain management required in last 24h - Discharge today with outpatient surgery and PCP followup Acute kidney injury (resolved) - Creatinine 1.73, with baseline 1.30, resolved - IV fluids as noted above until p.o. intake improved Insomnia/anxiety - Patient continue to struggle with sleep - Will continue home filippo-agonist BPH with LUTS- - Continue Flomax Disposition: Home DVT prophylaxis: Lovenox inpatient Diet: Regular CODE STATUS: Full code Total Time Total Time Spent Total Time Spent (In Minutes): <30 Discharge Plan Discharge Items Patient Disposition: Home - Self-Care Reason For Visit: ACUTE CHOLECYSTITIS, DIVERTICULITIS Discharge Diagnosis: Laparoscopic Cholecystectomy Activity: Per Instructions section Lifting: No more than 5 pounds Bathing Comment: you can shower;NO pool or bath for 2 weeks Exercise/Sports: Wait until after follow-up appointment Driving/Machine Use: no driving while on any narcotics for pain Non-emergency contact: Primary Care Provider and Surgeon Call non-emergency contact if: you have any medication questions, your symptoms worsen, you have a fever, your temperature is above 101.5, your wound has increased redness, your wound has increased drainage and your wound pain has increased Follow-up/Referrals: Ramone Mayers MD, FACS [Surgeon] - 05/01/24 11:00 am ( follow up in 1 week) Ed Berumen DO [Primary Care Provider] - 10/07/23 1:30 pm Diet: Regular Addtl Attending Provider Instructions: You were seen in the hospital for concern of abdominal discomfort. While you are in the hospital, it was found that you were suffering from acute cholecystitis. It was also found on imaging that you may also be suffering from mild diverticulitis as well. For this reason, our surgical team was consulted who recommended having a laparoscopic cholecystectomy. The surgery was performed on 09/29/2023 for which you tolerated the procedure well without complication. You were kept under observation until you were able to tolerate a diet and your pain was minimal. At this time, we feel it is safe for you to return home. After having the gallbladder removed, you require antibiotics for the cholecystitis, you will receive a prescription for Ciprofloxacin and Metronidazole, please continue for 5 days. For your mild diverticulitis that had been noted on CT, mild cases no longer require antibiotics for treatment and can typically be managed outpatient. Is been a pleasure to be a part of your care and we wish you the best in both your health and recovery. Please follow- up with your primary care provider within 7 days of discharge. An appointment with the general surgeon will be made for you for follow-up. Addtl Client Support Manager Provider Instructions: You will have small white bandages on underneath that are over your incision. You may shower with these on. They will tend to fall off on their own in a 7-10 days. You can keep a dry gauze dressing over your drain site until healed. Pending Studies at Discharge: Yes Studies:: surgical pathology Stand-Alone Forms: My [facility] Startup Freak, Smoking Cessation Medications and DC Order Prescriptions: New ciprofloxacin HCl 500 mg tablet 500 mg PO Q12H 5 Days Qty: 10 0RF metronidazole 500 mg tablet 500 mg PO Q8H 5 Days Qty: 15 0RF Continued tamsulosin 0.4 mg capsule 0.4 mg PO QAM Qty: 90 3RF sertraline 50 mg tablet 50 mg PO DAILY Qty: 90 3RF zolpidem 10 mg tablet 10 mg PO HS Qty: 90 0RF Rx Instructions: DNFB 07-19-23 melatonin 5 mg Tablet 5 mg PO HS PRN (Reason: Sleep) Discharge Orders: Discharge Order (Routine); Ordered 10/03/23 Ordered By: Bertha Aguayo/Other Patient Handouts: DVT Post Op Prevention Admission Data Admit Date/Time: 09/27/23 19:48 Attending Provider: Dillon Evangelista Admit Provider: Peterson Rao Primary Care Provider: Ed Berumen Other Providers: Peterson Rao; Ramone Mayers Other Interventions: Discharge Summary Assessment (RN) Last Done: 10/03/23 11:05 Supervising Physician Co-Signing Physician Notes I personally examined the patient and verified all sanchez points of history and exam, discussed case, and agree with decision making with Dr Pulido sleeping whenever I see him. Cleared for discharge by surgery. vitals noted No distress. Sleeping comfortably. Breathing unlabored. No pallor or icterus. cholecystitis - postop. Okay for home. Otherwise as above. Resident Activity Tracking Resident Involvement: Resident Care Provided Care Provided: Adult Hospital Medicine"
[2023-10-03 08:15] LABS: Basophils # (auto) 0.16 K/uL (0.00-0.20); Basophils % (auto) 1.3 %; Eosinophils # (auto) 0.37 K/uL (0.00-0.50); Hematocrit (blood only) 39.9 % (42.0-52.0); Immature Granulocytes # (auto) 0.46 K/uL (0.01-0.20); Immature Granulocytes % (auto) 3.7 %; Mean Corpuscular Hemoglobin 28.9 pg (25.0-34.0); Mean Corpuscular Hgb Conc 32.6 g/dL (32.0-36.0); Mean Corpuscular Volume 88.7 fL (80.0-100.0); Mean Platelet Volume 8.9 fL (9.4-12.4); Monocytes # (auto) 1.23 K/uL (0.11-0.59); Neutrophils # (auto) 8.04 K/uL (1.40-6.50); Platelet Count 279 K/uL (130-400); RDW Coefficient of Variation 14.3 % (11.5-14.5); RDW Standard Deviation 46.3 fL (36.4-46.3); White Blood Count 12.36 K/ul (4.8-10.8)
[2023-10-03 08:35] LABS: BUN Creatinine Ratio 12.4 (10-20); Creatinine Clr Calc Pharmacy 92.4 ml/min; Est GFR (African American) 90.3 ml/min; Est GFR (Non-African American) 77.9 ml/min; Potassium 3.6 mmol/L (3.5-5.1)
--- NOTE | 2023-10-03 20:22 | Billing Data ---
Date of Service October 03, 2023 Coding Level of Care Code 52519 IN/OBS DISCH 30 MIN/LESS
== END 2023-10-03 12:23 | disposition home or self-care (01) | DRG 418 ==
LOC: ED 13:29 → SUATTDRO 19:48 → 3N 19:48
DX: I10 Essential (primary) hypertension; K80.00 Calculus of gallbladder with acute cholecystitis without obstruction; N40.1 Benign prostatic hyperplasia with lower urinary tract symptoms; Z79.899 Other long term (current) drug therapy; Z88.0 Allergy status to penicillin; N13.8 Other obstructive and reflux uropathy; Z87.442 Personal history of urinary calculi; G47.00 Insomnia, unspecified; K82.A1 Gangrene of gallbladder in cholecystitis; N17.9 Acute kidney failure, unspecified; E86.0 Dehydration; K57.32 Diverticulitis of large intestine without perforation or abscess without bleeding; F41.9 Anxiety disorder, unspecified; Z86.711 Personal history of pulmonary embolism

== ENCOUNTER 2024-01-24 10:16 | Inpatient (IN) ==
--- NOTE | 2024-01-24 10:39 | Emergency Department Note ---
Impression & Plan Acute pancreatitis, Abdominal pain, Transaminitis, Leukocytosis, Elevated bilirubin, Jaundice ED Provider Note NAME: UMA CABALLERO AGE: 58 SEX: M : 1965 ARRIVES VIA: Walk-In INFORMANT: Patient ED PROVIDER(S): Dillon Ryan DO CHIEF COMPLAINT: abdominal pain HPI: Patient is a 58-year-old male who presents to the ER with a past medical history of cholelithiasis and cholecystectomy in September. Abdominal pain started on Saturday night. It is located in the right lower and now is located in the left lower. Associated with nausea and vomiting. No bowel movement for 2 days. No dysuria, urgency, or frequency. No other exacerbating or remitting factors. No chest pain. No shortness of breath. ADDITIONAL HISTORY OBTAINED: Per HPI Chronic Medical/Social Conditions Affecting Care: Per HPI PAST MEDICAL HISTORY:See Below PAST SURGICAL HISTORY:See Below FAMILY HISTORY:See Below SOCIAL HISTORY:See Below HOME MEDICATIONS:See Below ALLERGIES:See Below VITALS:See Below PHYSICAL EXAMINATION: GENERAL: Sitting up in bed, alert, well appearing, well nourished, no distress, non-toxic EYE EXAM: normal conjunctiva. OROPHARYNX:mucous membranes are moist LUNGS: Clear to auscultation. Normal chest wall mechanics HEART: no murmurs, S1 normal and S2 normal ABDOMEN: abdomen soft, tender to palpation in lower abdomen bilaterally, normo- active bowel sounds, no masses, no rebound or guarding. UPPER EXTREMITIES: upper extremities are grossly normal. LOWER EXTREMITIES: No pitting edema. NEURO EXAM: Normal sensorium, cranial nerves II-XII grossly intact, normal speech, no gross weakness of arms, no gross weakness of legs. MEDICAL DECISION MAKING: Patient is a 58-year-old male who presents ER with a past medical history of anxiety, nephrolithiasis and ALYSSA for abdominal pain. IV was established with orders obtained. Labs show leukocytosis of 18,000. No significant anemia. BMP with a creatinine 1.4. Transaminitis of 100 200. T. bili up at 6.2. Lipase is significantly elevated at 1600. UA without white cells to suggest infection. CT abdomen pelvis confirms pancreatitis in the setting of a cholecystectomy in September. Patient was given IV Rocephin and Flagyl due to allergies. He was given IV fluids. He was updated bedside. Discussed with gastroenterology Dr. Lee he agrees with admission and he will evaluate from GI standpoint. Discussed the case with the hospitalist patient was admitted for further evaluation management treatment. Consults/Care Managements Discussions: Per MDM Triage Nursing notes reviewed. Limited review of prior medical records performed Vital Signs: reviewed and remarkable for no significant abnormalities Differential diagnosis: Differential diagnoses includes but is not limited to gastritis, peptic ulcer disease, GERD, gallbladder disease, pancreatitis, small bowel obstruction, appendicitis, diverticulitis, hernia, urinary tract infection, torsion, /ectopic (if female), perforation, trauma, infectious. ER treatment provided: See below Diagnostics interpreted by me include EKG and cardiac monitoring as listed below: -Cardiac Monitoring: An order was placed for continuous cardiac monitoring. The monitor shows a rate of 85 with sinus rhythm. -ECG: none -Laboratory studies:Interpreted by me as stated above in MDM and shown below. Imaging studies: Xrays: As interpreted by me:none CTs show: CT abdomen pelvis per my preliminary interpretation showed stranding around the pancreas CT abdomen pelvis per radiology as described above Procedures:none Critical Care: None Past Med/Surg History Problem List (Updated 01/24/24 @ 14:50 by Dillon Ryan DO) Jaundice (Acute) Elevated bilirubin (Acute) Leukocytosis (Acute) Transaminitis (Acute) Abdominal pain (Acute) Acute pancreatitis (Acute) Acute kidney injury Acute pancreatitis BPH w urinary obs/LUTS Acute dehydration (Acute) Diverticulitis (Acute) Acute URI of multiple sites Elevated PSA Therapeutic drug monitoring Encounter for screening for COVID-19 History of colon polyps Reactive hypertension Renal cyst, acquired Persistent cough Nephrolithiasis Knee pain, bilateral Insomnia Homocystinemia Fatigue Cholelithiasis (Acute) Anxiety Medical History (Updated 01/24/24 @ 14:50 by Dillon Ryan DO) Acute cholecystitis History of kidney stones reason for flomax History of pulmonary embolism hx of ~2018 --was on blood thinners, then stopped Tubular adenoma of colon Surgical History Hx laparoscopic cholecystectomy (09/29/23) Laparoscopic Cholecystectomy with cholangiogram(Not Applicable) - Ramone Mayers MD, FACS History of colonoscopy History of tonsillectomy and adenoidectomy History of wisdom tooth extraction H/O right wrist surgery ligament repair at [facility] [place] Family History Grandmother Diabetes Grandfather Diabetes Father Stroke Other No family history of adverse response to anesthesia Social History Smoking Status: Never smoker Second Hand Exposure: No; Do You Dip or Chew Tobacco: No; Hx Alcohol Use: No Hx Substance Use: No Preferred Language: Divehi Communication Ability: Effective Visual Impairment: No Limitations Hearing Ability: Normal Director Of Mechanical Engineering Required: No Beliefs That Will Affect Care: None marital status: Current Living Situation: Spouse current occupational status: employed 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 [employer] How many Children do You have: 0 Feels Safe at Home: Yes Childhood Exposure to Second-Hand Smoke: Yes Diet: regular caffeine: Yes (once in awhile will have soda) Dental Care, Regularly: No Physical Activity Frequency: Daily Seatbelt Use: sometimes Sunscreen Use: Yes Assistive Devices: None Allergies Allergies Allergy/AdvReac Type Severity Reaction Status Date / Time Penicillins Allergy Unknown CAN'T Verified 11/12/23 13:38 REMEMBER Home Meds Home Medications Medication Instructions Recorded Confirmed melatonin 5 mg tablet 5 mg PO HS PRN Sleep 12/20/20 01/24/24 ibuprofen 1 - 2 tab PO DIRECTED PRN Pain 01/24/24 01/24/24 sertraline 50 mg tablet 50 mg PO QAM 01/24/24 01/24/24 Previous Rx's Medication Instructions Recorded tamsulosin 0.4 mg capsule 0.4 mg PO QAM #90 caps 02/27/23 zolpidem 10 mg tablet 10 mg PO HS #90 tabs 10/24/23 Results & Data (ED) Vital Signs Vital Signs - 24 hr 01/24/24 10:22 01/24/24 10:26 01/24/24 11:27 Temperature 36.5 C Temperature Source Temporal Artery Scan Pulse Rate 86 69 61 Pulse Rate from SpO2 Sensor 62 Pulse Rhythm Regular Respiratory Rate 20 20 14 Respiratory Effort / Characteristics Non-Labored Spontaneous Respiratory Depth Normal Respiratory Pattern Regular Blood Pressure 102/70 Blood Pressure Mean 80 Blood Pressure Position Sitting Pulse Oximetry 98 97 99 Oxygen Delivery Method Room Air Room Air Sepsis Recent Fever Within 48 Hours No Sepsis New/Unexplained Change in Mental Status No Sepsis Action Taken by Nursing No Action Required 01/24/24 11:30 01/24/24 11:39 01/24/24 11:42 Temperature Temperature Source Pulse Rate 63 63 Pulse Rate from SpO2 Sensor 63 63 Pulse Rhythm Respiratory Rate 16 22 Respiratory Effort / Characteristics Respiratory Depth Respiratory Pattern Blood Pressure 148/98 H Blood Pressure Mean 106 Blood Pressure Position Pulse Oximetry 96 95 Oxygen Delivery Method Sepsis Recent Fever Within 48 Hours Sepsis New/Unexplained Change in Mental Status Sepsis Action Taken by Nursing 01/24/24 11:49 01/24/24 12:00 01/24/24 12:00 Temperature Temperature Source Pulse Rate 63 Pulse Rate from SpO2 Sensor Pulse Rhythm Respiratory Rate Respiratory Effort / Characteristics Respiratory Depth Respiratory Pattern Blood Pressure 151/95 H 151/95 H Blood Pressure Mean 111 111 Blood Pressure Position Pulse Oximetry Oxygen Delivery Method Sepsis Recent Fever Within 48 Hours Sepsis New/Unexplained Change in Mental Status Sepsis Action Taken by Nursing 01/24/24 12:03 01/24/24 12:30 01/24/24 12:30 Temperature Temperature Source Pulse Rate 63 64 Pulse Rate from SpO2 Sensor 61 63 Pulse Rhythm Respiratory Rate 20 13 Respiratory Effort / Characteristics Respiratory Depth Respiratory Pattern Blood Pressure 156/97 H Blood Pressure Mean 109 Blood Pressure Position Pulse Oximetry 95 97 Oxygen Delivery Method Sepsis Recent Fever Within 48 Hours Sepsis New/Unexplained Change in Mental Status Sepsis Action Taken by Nursing 01/24/24 12:57 01/24/24 13:00 01/24/24 13:03 Temperature Temperature Source Pulse Rate 77 70 Pulse Rate from SpO2 Sensor Pulse Rhythm Respiratory Rate 21 22 Respiratory Effort / Characteristics Respiratory Depth Respiratory Pattern Blood Pressure 124/82 Blood Pressure Mean 97 Blood Pressure Position Pulse Oximetry Oxygen Delivery Method Sepsis Recent Fever Within 48 Hours Sepsis New/Unexplained Change in Mental Status Sepsis Action Taken by Nursing 01/24/24 13:48 01/24/24 14:00 01/24/24 14:00 Temperature Temperature Source Pulse Rate 72 74 Pulse Rate from SpO2 Sensor Pulse Rhythm Respiratory Rate 22 15 Respiratory Effort / Characteristics Respiratory Depth Respiratory Pattern Blood Pressure 124/87 Blood Pressure Mean 102 Blood Pressure Position Pulse Oximetry Oxygen Delivery Method Sepsis Recent Fever Within 48 Hours Sepsis New/Unexplained Change in Mental Status Sepsis Action Taken by Nursing 01/24/24 14:27 01/24/24 14:30 Temperature Temperature Source Pulse Rate 67 Pulse Rate from SpO2 Sensor Pulse Rhythm Respiratory Rate 20 Respiratory Effort / Characteristics Respiratory Depth Respiratory Pattern Blood Pressure 124/92 Blood Pressure Mean 99 Blood Pressure Position Pulse Oximetry Oxygen Delivery Method Sepsis Recent Fever Within 48 Hours Sepsis New/Unexplained Change in Mental Status Sepsis Action Taken by Nursing Laboratory Data 01/24/24 10:40 01/24/24 10:40 Lab Results 01/24/24 01/24/24 01/24/24 Range/Units 10:40 10:46 Unknown WBC 18.29 H (4.8-10.8) K/ul RBC 5.92 (4.70-6.10) M/uL Hgb 17.0 (14.0-18.0) g/dl POC Hgb 17.7 (14.0-18.0) g/dl Hct 52.3 H (42.0-52.0) % POC Hct 52 (42-52) % MCV 88.3 (80.0-100.0) fL MCH 28.7 (25.0-34.0) pg MCHC 32.5 (32.0-36.0) g/dL RDW Std Deviation 45.0 (36.4-46.3) fL RDW Coeff of Vero 13.9 (11.5-14.5) % Plt Count 224 (130-400) K/uL MPV 8.7 L (9.4-12.4) fL Immature Gran % (Auto) 0.6 % Neut % (Auto) 82.0 % Lymph % (Auto) 8.9 % Blaine % (Auto) 8.1 % Eos % (Auto) 0.1 % Baso % (Auto) 0.3 % Neut # (Auto) 15.00 H (1.40-6.50) K/uL Lymph # (Auto) 1.63 (1.20-3.40) K/uL Blaine # (Auto) 1.48 H (0.11-0.59) K/uL Eos # (Auto) 0.01 (0.00-0.50) K/uL Baso # (Auto) 0.06 (0.00-0.20) K/uL Immature Gran # (Auto) 0.11 (0.01-0.20) K/uL POC Sodium 139 (135-144) mmol/L Sodium 137 (136-145) mmol/L POC Potassium 4.5 (3.3-5.0) mmol/L Potassium 4.4 (3.5-5.1) mmol/L POC Chloride 104 (101-112) mmol/L Chloride 103 (98-107) mmol/L Carbon Dioxide 24 (21-32) mmol/L POC Total CO2 23 L (24-31) mmol/L Anion Gap 10 (3-11) POC Anion Gap 17.0 (16-25) mmol/L POC BUN 22 H (7-18) mg/dl BUN 21 (6-23) mg/dl Creatinine 1.43 H (0.6-1.4) mg/dl POC Creatinine 1.4 H (0.6-1.3) mg/dl Est Cr Clr Drug Dosing 63.7 ml/min Est GFR ( Amer) 62.1 ml/min Est GFR (Non-Af Amer) 53.6 ml/min BUN/Creatinine Ratio 14.7 (10-20) Glucose 110 H (70-99(Fasting)) mg/dl POC Glucose (other) 113 H (70-99) mg/dl Calcium 10.6 H (8.6-10.3) mg/dl POC Ioniz Calcium Kellie 1.25 (1.12-1.32) mmol/l Total Bilirubin 6.2 H (0.2-1.0) mg/dl AST 100 H (13-39) U/L ALT 219 H (7-52) U/L Alkaline Phosphatase 165 H (34-104) U/L Total Protein 7.8 (6.0-8.3) gm/dl Albumin 3.9 (3.4-5.0) gm/dl Globulin 3.9 (2.5-4.0) gm/dl Albumin/Globulin Ratio 1.0 (0.9-2) Triglycerides 64 (0-150) mg/dl Lipase 1623 H (11-82) U/L Urine Color Dark Yellow Urine Appearance Clear (Clear) Urine pH 5.5 (4.5-7.5) Ur Specific [place] 1.028 (1.000-1.030) Urine Protein 2+ H (Negative) Urine Glucose (UA) Negative (Negative) Urine Ketones Negative (Negative) Urine Blood 1+ H (Negative) Urine Nitrite Positive A (Negative) Urine Bilirubin 2+ H (Negative) Urine Urobilinogen Negative (Negative) Ur Leukocyte Esterase 1+ H (Negative) Urine WBC (Auto) 0-5 (0-5) /hpf Urine RBC (Auto) 3-5 H (0-2) /hpf U Hyaline Cast (Auto) 0-2 (0-2) /lpf U Epithel Cells (Auto) 0-2 (0-2) /hpf Urine Bacteria (Auto) None Seen (None Seen) Urine Mucus Present A (None Prsent) Administered Medications Parenteral Electrolytes (Plasma-Lyte A Ph 7.4) 1,000 mls @ 200 mls/hr IV .Q5H RAMONA Stop: 01/25/24 10:29 Last Admin: 01/24/24 14:27 Dose: 200 mls/hr Documented By: SANDRA Discontinued Medications Sodium Chloride (Nss) 1,000 mls @ 999 mls/hr IV .Q1H1M ONE Stop: 01/24/24 11:37 Last Infusion: 01/24/24 13:32 Dose: Infused Documented By: Admin: 01/24/24 10:50 Dose: 999 mls/hr Documented By: SANDRA Metronidazole (Flagyl) 500 mg in 100 mls @ 100 mls/hr IV NOW STA; Protocol Stop: 01/24/24 13:02 Last Infusion: 01/24/24 13:32 Dose: Infused Documented By: Admin: 01/24/24 12:18 Dose: 100 mls/hr Documented By: SHI Ceftriaxone Sodium (Rocephin) 2,000 mg in 50 mls @ 100 mls/hr IV NOW STA Stop: 01/24/24 12:32 Last Infusion: 01/24/24 13:32 Dose: Infused Documented By: Admin: 01/24/24 12:18 Dose: 100 mls/hr Documented By: SHI Ioversol (Optiray 320 100ml) 94 ml IV ONCE ONE Stop: 01/24/24 11:10 Last Admin: 01/24/24 11:09 Dose: 94 ml Documented By: SONIA Ketorolac Tromethamine (Ketorolac Tromethamine 15 Mg/Ml Vial) 15 mg IV NOW ONE Stop: 01/24/24 10:38 Last Admin: 01/24/24 10:51 Dose: 15 mg Documented By: SANDRA Morphine Sulfate (Morphine Sulfate 4 Mg/Ml 1 Ml Carp\Vial) 4 mg IV NOW STA Stop: 01/24/24 12:19 Last Admin: 01/24/24 12:44 Dose: 4 mg Documented By: KENYA Ondansetron HCl (Ondansetron Inj 2 Mg/Ml 2 Ml Vial) 4 mg IV NOW STA Stop: 01/24/24 10:38 Last Admin: 01/24/24 10:51 Dose: 4 mg Documented By: SANDRA Imaging Data Radiologist's Impression: Abdomen/Pelvis CT 01/24/24 10:37 CT abd pelvis IV con only CLINICAL HISTORY: lower abd pain TECHNIQUE: Helical axial images of the abdomen and pelvis were obtained and displayed. Automated dose lowering techniques and/or adjustment according to patient size were utilized for this exam. This exam was performed with intravenous contrast. CT DOSE: 1533.08 mGy.cm COMPARISON: Comparison is made to CT abdomen pelvis 09/27/2023 FINDINGS: Lower chest: Bibasilar atelectasis versus scarring is seen. Periesophageal lymph nodes are seen. Liver: Unremarkable. No focal lesions are seen. Gallbladder and biliary tree: Patient is status post cholecystectomy. Physiologic prominence of the biliary ducts is noted. Pancreas: Pancreatic edema and peripancreatic fat stranding is seen. Spleen: Unremarkable. Adrenals: Unremarkable. Kidneys and ureters: Cysts are seen. Bladder: Diffuse homogeneous wall thickening is seen. Reproductive organs: Prostatomegaly is seen. Bowel: Diverticulosis is seen without evidence of diverticulitis. Lymph nodes Retroperitoneal: Subcentimeter lymph nodes are noted. Pelvic: Unremarkable. Mesenteric: Unremarkable. Peritoneum: Fat stranding about the pylorus and pancreas noted. Trace ascites is seen about the liver. Vessels: Atherosclerotic calcifications are seen. Abdominal wall: Bilateral fat-containing inguinal hernias are seen. Bones: Degenerative changes in the visualized spine. IMPRESSION: Peripancreatic fat stranding is seen, findings are concerning for acute pancreatitis with no evidence of acute peripancreatic collection or necrosis. ACT 112: Negative or not required by law. Electronically signed by: Audi Kahn M.D. 01/24/2024 11:51 AM Discharge Plan Visit Data Chief Complaint: Abdominal Pain Stated Complaint: ABD PAIN WORSENING ED Provider: Dillon Ryan Discharge Problem: Acute pancreatitis, Abdominal pain, Transaminitis, Leukocytosis, Elevated bilirubin, Jaundice Forms Stand Alone Forms: My [facility] Prescriptions Prescriptions: No Action tamsulosin 0.4 mg capsule 0.4 mg PO QAM Qty: 90 3RF zolpidem 10 mg tablet 10 mg PO HS Qty: 90 0RF melatonin 5 mg Tablet 5 mg PO HS PRN (Reason: Sleep) ibuprofen 1 - 2 tab PO DIRECTED PRN (Reason: Pain) Rx Instructions: otc, unknown dose. sertraline 50 mg tablet 50 mg PO QAM Referrals Referrals: Ed Berumen DO [Primary Care Provider] - Discharge Problem: Acute pancreatitis Qualifiers: Pancreatitis type: unspecified pancreatitis type Acute pancreatitis complication: unspecified Qualified Code(s): K85.90 - Acute pancreatitis without necrosis or infection, unspecified Abdominal pain Qualifiers: Abdominal location: unspecified location Qualified Code(s): R10.9 - Unspecified abdominal pain Leukocytosis Qualifiers: Leukocytosis type: unspecified Qualified Code(s): D72.829 - Elevated white blood cell count, unspecified
[2024-01-24] MEDS: SODIUM CHLORIDE 0.9% 1,000 ML IV ONE (10:50)
[2024-01-24] MEDS: ONDANSETRON INJ 2 MG/ML 2 ML VIAL IV STA (10:51)
[2024-01-24] MEDS: KETOROLAC TROMETHAMINE 15 MG/ML VIAL IV ONE (10:51)
[2024-01-24 10:59] LABS: iSTAT Creatinine 1.4 mg/dl (0.6-1.3); iSTAT Hemoglobin 17.7 g/dl (14.0-18.0); iSTAT Ionized Calcium 1.25 mmol/l (1.12-1.32); iSTAT Potassium 4.5 mmol/L (3.3-5.0)
[2024-01-24] MEDS: OPTIRAY 320 100ml IV ONE (11:09)
[2024-01-24 11:23] LABS: Basophils # (auto) 0.06 K/uL (0.00-0.20); Basophils % (auto) 0.3 %; Eosinophils # (auto) 0.01 K/uL (0.00-0.50); Eosinophils % (auto) 0.1 %; Hematocrit (blood only) 52.3 % (42.0-52.0); Immature Granulocytes # (auto) 0.11 K/uL (0.01-0.20); Immature Granulocytes % (auto) 0.6 %; Lymphocytes # (auto) 1.63 K/uL (1.20-3.40); Lymphocytes % (auto) 8.9 %; Mean Corpuscular Hemoglobin 28.7 pg (25.0-34.0); Mean Corpuscular Hgb Conc 32.5 g/dL (32.0-36.0); Mean Corpuscular Volume 88.3 fL (80.0-100.0); Mean Platelet Volume 8.7 fL (9.4-12.4); Monocytes # (auto) 1.48 K/uL (0.11-0.59); Monocytes % (auto) 8.1 %; Platelet Count 224 K/uL (130-400); RDW Coefficient of Variation 13.9 % (11.5-14.5); Red Blood Count 5.92 M/uL (4.70-6.10); White Blood Count 18.29 K/ul (4.8-10.8)
[2024-01-24 11:30] LABS: Appearance Urine Clear (Clear); Bacteria Urine Automated None Seen (None Seen); Bilirubin Urine 2+ (Negative); Blood Urine 1+ (Negative); Cast Urine Automated 0-2 /lpf (0-2); Color Urine Dark Yellow; Epithelial Cell Urine Auto 0-2 /hpf (0-2); Glucose Urine UA Negative (Negative); Ketones Urine Negative (Negative); Leukocyte Esterase Urine 1+ (Negative); Nitrite Urine Positive (Negative); Protein Urine 2+ (Negative); Specific Gravity Urine 1.028 (1.000-1.030); Urobilinogen Urine Negative (Negative); WBC Urine Automated 0-5 /hpf (0-5); pH Urine 5.5 (4.5-7.5)
[2024-01-24 11:31] LABS: BUN Creatinine Ratio 14.7 (10-20); Calcium 10.6 mg/dl (8.6-10.3); Creatinine Clr Calc Pharmacy 63.7 ml/min; Est GFR (African American) 62.1 ml/min; Est GFR (Non-African American) 53.6 ml/min; Potassium 4.4 mmol/L (3.5-5.1)
[2024-01-24 11:36] LABS: Albumin Level 3.9 gm/dl (3.4-5.0); Bilirubin,Total 6.2 mg/dl (0.2-1.0); Globulin 3.9 gm/dl (2.5-4.0); Total Protein 7.8 gm/dl (6.0-8.3)
[2024-01-24 11:42] LABS: Mucus Urine Present (None Prsent)
--- NOTE | 2024-01-24 11:53 | CT Scan Report ---
CT abd pelvis IV con only CLINICAL HISTORY: lower abd pain TECHNIQUE: Helical axial images of the abdomen and pelvis were obtained and displayed. Automated dose lowering techniques and/or adjustment according to patient size were utilized for this exam. This e xam was performed with intravenous contrast. CT DOSE: 1533.08 mGy.cm COMPARISON: Comparison is made to CT abdomen pelvis 09/27/2023 FINDINGS: Lower chest: Bibasilar atelectasis versus scarring is seen. Periesophageal lymph nodes are seen. Liver: Unremarkable. No focal lesions are seen. Gallbladder and biliary tree: Patient is status post cholecystectomy. Physiologic prominence of the b iliary ducts is noted. Pancreas: Pancreatic edema and peripancreatic fat stranding is seen. Spleen: Unremarkable. Adrenals: Unremarkable. Kidneys and ureters: Cysts are seen. Bladder: Diffuse homogeneous wall thickening is seen. Reproductive organs: Prostatomegaly is seen. Bowel: Diverticulosis is seen without evidence of diverticulitis. Lymph nodes Retroperitoneal: Subcentimeter lymph nodes are noted. Pelvic: Unremarkable. Mesenteric: Unremarkable. Peritoneum: Fat stranding about the pylorus and pancreas noted. Trace ascites is seen about the liver . Vessels: Atherosclerotic calcifications are seen. Abdominal wall: Bilateral fat-containing inguinal hernias are seen. Bones: Degenerative changes in the visualized spine. IMPRESSION: Peripancreatic fat stranding is seen, findings are concerning for acute pancreatitis with no evidence of acute peripancreatic collection or necrosis. ACT 112: Negative or not required by law. Electronically signed by: Audi Kahn M.D. 01/24/2024 11:51 AM
[2024-01-24] MEDS: cefTRIAXone SODIUM 2,000 MG/50 ML BAG IV STA (12:18)
[2024-01-24] MEDS: metroNIDAZOLE 500 MG/100 ML BAG IV STA (12:18)
--- NOTE | 2024-01-24 12:34 | History & Physical Report ---
Date of Service January 24, 2024 Assessment & Plan (1) Acute pancreatitis: Plan: Transverse lower quadrant abdominal pain that began on Sunday 01/21 Leukocytosis at 18.29 with a neutrophil predominance; afebrile Lipase was 1623 on arrival Triglyceride levels WNL Elevated transaminase levels, elevated bili A/P CT revealed findings consistent with acute pancreatitis; no evidence of collection or necrosis Gastroenterology consulted MRCP ordered Plans for ERCP with Dr. Lee on Friday 01/26 N.p.o. for now; hold p.o. medications Fluid resuscitation with Plasma-Lyte at 200mL/hr x 4 L Please add on additional fluids on 01/24 Strict I&O monitoring Continue empiric ABX for biliary coverage Metronidazole + Rocephin IV antiemetics PRN IV pain control PRN A.m. CBC, CMP, mag, lipase (2) Acute kidney injury: Plan: Mild; creatinine 1.43 on arrival (baseline around 1.0) IVF as above Trend morning BMPs Plan Disposition: Admit to [facility] Full code N.p.o. VTE PPx: Lovenox 40mg SQ q24h History of Present Illness Chief Complaint: Abdominal pain Primary Care Provider: Ed Berumen DO Enzo is a 58-year-old male with PMH of anxiety, nephrolithiasis, and insomnia. He presented for transverse lower abdominal pain that began on Saturday evening into the morning of 01/22. The pain is currently located in his left lower quadrant and he rates it 6/10 at present; 8/10 at worst. Is a constant pain that he describes as sharp, stabbing with movements and dull/achy with rest. Laying flat exacerbates the pain, as well as hiccuping. He tried eating a pop tart this morning, and this did not exacerbate the pain. He has been tolerating fluids, but does note that he vomited twice yesterday. He has been taking ibuprofen at home, which somewhat helps. Remote history of [place] admission in September 2023 for acute cholecystitis/sigmoid diverticulitis; s/p cholecystectomy. No history of prior pancreatitis or gallstones. He does have history of kidney stones. Last BM on Saturday. He is not passing gas to his knowledge. No recent change in diet. Patient denies smoking, tobacco use, recent alcohol use. He denies history of heavy alcohol use in the past. Patient's vitals are stable at time of admission. ED course: Metronidazole 500 mg IV Rocephin 2000 mg IV Morphine 4 mg IV Toradol 15 mg IV Zofran 4 mg IV NSS 1000 mL IV ROS: Patient endorses chills, night-sweats, BARNES, lower transverse abdominal pain, nausea, vomiting x 2 on , constipation, dark urine, Patient denies fever (patient is unsure as he did not check his temperature at home), dizziness, lightheadedness, chest pain, SOB, cough, hematemesis, diarrhea, burning with urination, dysuria, melena, blood in the urine/stool, new lower back pain. Allergies Allergy/AdvReac Type Severity Reaction Status Date / Time Penicillins Allergy Unknown CAN'T Verified 11/12/23 13:38 REMEMBER Home Medications Medication Instructions Recorded Confirmed Type melatonin 5 mg tablet 5 mg PO HS PRN Sleep 12/20/20 01/24/24 History tamsulosin 0.4 mg capsule 0.4 mg PO QAM #90 caps 02/27/23 01/24/24 Rx zolpidem 10 mg tablet 10 mg PO HS #90 tabs 10/24/23 01/24/24 Rx ibuprofen 1 - 2 tab PO DIRECTED PRN Pain 01/24/24 01/24/24 History sertraline 50 mg tablet 50 mg PO QAM 01/24/24 01/24/24 History Past Med/Surg History Problem List (Updated 01/24/24 @ 14:50 by Dillon Ryan DO) Jaundice (Acute) Elevated bilirubin (Acute) Leukocytosis (Acute) Transaminitis (Acute) Abdominal pain (Acute) Acute pancreatitis (Acute) Acute kidney injury Acute pancreatitis BPH w urinary obs/LUTS Acute dehydration (Acute) Diverticulitis (Acute) Acute URI of multiple sites Elevated PSA Therapeutic drug monitoring Encounter for screening for COVID-19 History of colon polyps Reactive hypertension Renal cyst, acquired Persistent cough Nephrolithiasis Knee pain, bilateral Insomnia Homocystinemia Fatigue Cholelithiasis (Acute) Anxiety Medical History (Updated 01/24/24 @ 14:50 by Dillon Ryan DO) Acute cholecystitis History of kidney stones reason for flomax History of pulmonary embolism hx of ~2017 --was on blood thinners, then stopped Tubular adenoma of colon Surgical History Hx laparoscopic cholecystectomy (09/29/23) Laparoscopic Cholecystectomy with cholangiogram(Not Applicable) - Ramone Mayers MD, FACS History of colonoscopy History of tonsillectomy and adenoidectomy History of wisdom tooth extraction H/O right wrist surgery ligament repair at [facility] Family History Grandmother Diabetes Grandfather Diabetes Father Stroke Other No family history of adverse response to anesthesia Social History Smoking Status: Never smoker Second Hand Exposure: No; Do You Dip or Chew Tobacco: No; Hx Alcohol Use: No Hx Substance Use: No Preferred Language: Belarusian Communication Ability: Effective Visual Impairment: No Limitations Hearing Ability: Normal Political Anthropologist Required: No Beliefs That Will Affect Care: None marital status: Current Living Situation: Spouse current occupational status: employed 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 [employer] How many Children do You have: 0 Feels Safe at Home: Yes Childhood Exposure to Second-Hand Smoke: Yes Diet: regular caffeine: Yes (once in awhile will have soda) Dental Care, Regularly: No Physical Activity Frequency: Daily Seatbelt Use: sometimes Sunscreen Use: Yes Assistive Devices: None Review of Systems Review of Systems: See HPI above Physical Exam Physical Exam: General: Moderate physical distress secondary to abdominal pain; anxious; non- toxic appearing; cooperative; SpO2 97% on RA HEENT: normocephalic, atraumatic; no scleral icterus; PERRLA; vision and hearing grossly intact Neck: supple; no lymphadenopathy; trachea midline Skin: warm, dry without signs of tenting; no cyanosis; no rashes, bruising, lesions, or erythema noted CV: chest wall NTP; RRR; S1/S2 normal; no murmurs/rubs/gallops; pulses intact and symmetric at radial, DP, and PT Lungs: no acute respiratory distress; symmetrical chest wall expansion; clear breath sounds across all lung knight w/o adventitious sounds; no wheezing ABD: Soft; mildly tender to palpation below the umbilicus; no rashes or bruising on the abdomen or back; BS present; no rebound/guarding; mild distention secondary to body habitus; negative CVA tenderness MSK: no tics or fasciculations; no edema noted in the LEs b/l, nonerythematous Neuro: A&Ox3; normal mood and affect; fluent speech; no focal deficits; sensation grossly intact in the LEs b/l Results & Data Results & Data Vital Signs (Past 12 Hours) Vital Signs Temp Pulse Resp BP Pulse Ox O2 Del Method 01/24/24 11:49 63 01/24/24 10:26 69 20 97 Room Air 01/24/24 10:22 36.5 C 86 20 102/70 98 Room Air Laboratory Results Abnormal lab results 01/24/24 01/24/24 01/24/24 Range/Units 10:40 10:46 Unknown WBC 18.29 H (4.8-10.8) K/ul Hct 52.3 H (42.0-52.0) % MPV 8.7 L (9.4-12.4) fL Neut # (Auto) 15.00 H (1.40-6.50) K/uL [place] # (Auto) 1.48 H (0.11-0.59) K/uL POC Total CO2 23 L (24-31) mmol/L POC BUN 22 H (7-18) mg/dl Creatinine 1.43 H (0.6-1.4) mg/dl POC Creatinine 1.4 H (0.6-1.3) mg/dl Glucose 110 H (70-99(Fasting)) mg/dl POC Glucose (other) 113 H (70-99) mg/dl Calcium 10.6 H (8.6-10.3) mg/dl Total Bilirubin 6.2 H (0.2-1.0) mg/dl AST 100 H (13-39) U/L ALT 219 H (7-52) U/L Alkaline Phosphatase 165 H (34-104) U/L Lipase 1623 H (11-82) U/L Urine Protein 2+ H (Negative) Urine Blood 1+ H (Negative) Urine Nitrite Positive A (Negative) Urine Bilirubin 2+ H (Negative) Ur Leukocyte Esterase 1+ H (Negative) Urine RBC (Auto) 3-5 H (0-2) /hpf Urine Mucus Present A (None Prsent) Diagnostic Findings Abdomen/Pelvis CT 01/24/24 10:37 CT abd pelvis IV con only CLINICAL HISTORY: lower abd pain TECHNIQUE: Helical axial images of the abdomen and pelvis were obtained and displayed. Automated dose lowering techniques and/or adjustment according to patient size were utilized for this exam. This exam was performed with intravenous contrast. CT DOSE: 1533.08 mGy.cm COMPARISON: Comparison is made to CT abdomen pelvis 09/27/2023 FINDINGS: Lower chest: Bibasilar atelectasis versus scarring is seen. Periesophageal lymph nodes are seen. Liver: Unremarkable. No focal lesions are seen. Gallbladder and biliary tree: Patient is status post cholecystectomy. Physiologic prominence of the biliary ducts is noted. Pancreas: Pancreatic edema and peripancreatic fat stranding is seen. Spleen: Unremarkable. Adrenals: Unremarkable. Kidneys and ureters: Cysts are seen. Bladder: Diffuse homogeneous wall thickening is seen. Reproductive organs: Prostatomegaly is seen. Bowel: Diverticulosis is seen without evidence of diverticulitis. Lymph nodes Retroperitoneal: Subcentimeter lymph nodes are noted. Pelvic: Unremarkable. Mesenteric: Unremarkable. Peritoneum: Fat stranding about the pylorus and pancreas noted. Trace ascites is seen about the liver. Vessels: Atherosclerotic calcifications are seen. Abdominal wall: Bilateral fat-containing inguinal hernias are seen. Bones: Degenerative changes in the visualized spine. IMPRESSION: Peripancreatic fat stranding is seen, findings are concerning for acute pancreatitis with no evidence of acute peripancreatic collection or necrosis. ACT 112: Negative or not required by law. Electronically signed by: Audi Kahn M.D. 01/24/2024 11:51 AM Code Status & VTE Plan Code Status Full code VTE Prophylaxis Plan VTE Prophylaxis will be ordered: Yes Supervising Physician Co-Signing Physician Notes Patient seen and examined, chart reviewed, case discussed with Prashant Craig PA-C and I agree with the assessment and plan as above except as otherwise noted Labs and images reviewed 58-year-old male who presents with pancreatitis, prior history of cholecystectomy several months ago. Has had abdominal pain worsening over the last day, nausea, vomiting. Pain is mostly above his bellybutton, he is tender at the epigastrium as well. No rebound/guarding. He has a leukocytosis, LFTs are acutely elevated.? Retained stone. Lipase is 1623. N.p.o., IV FM, antiemetics/analgesics ordered. GI consulted, possible ERCP 8/19. MRCP pending. Rocephin/Flagyl continued for GI coverage. CMP trended. Agree with above. PG Care Time/CCT Total # of Minutes Spent Total Time Spent with Patient: Total time spent is greater than 50% in coordination of care (as documented) at patient's floor/unit and/or counseling patient: C[place] [address] INT INP/OBS CARE 3/75MIN Patient Type Established History Comprehensive Exam Comprehensive Medical Decision Making High Complexity Diagnoses Acute pancreatitis K85.90 Acute kidney injury N17.9
[2024-01-24] MEDS: MoRPHine SULFATE 4 MG/ML 1 ML CARP\\VIAL IV STA (12:44)
--- NOTE | 2024-01-24 13:26 | Gastrointestinal Consultation ---
Date of Consultation January 24, 2024 Assessment & Plan (1) Acute pancreatitis: Plan 58 year old male s/p CCY for gallstones admitted with abdominal pain, nausea/vomiting, CT imaging concerning for acute pancreatitis but no evidence of fluid collection or necrosis. Tbili 6.2, AST 100, ALT 219, ALKP 165, lipase 1623. There is leukocytosis but no fever. NPO LR 200 mL/hr Antiemetics PRN Analgesia PRN Trend PLATE MAKER ZINC, glucose OOB to chair as tolerated Early ambulation encouraged MRCP Agree w/ ABX for biliary coverage Plan for ERCP Saturday We appreciate assistance in the management of any serological abnormality and corrections to include: hemoglobin >7, INR <2, platelets >50,000, potassium levels >3.5 but <5.3, and sodium levels within 5 points of the reference range prior to endoscopic evaluation. Thank you for allowing us to participate in the care of this patient. Please call with any acute changes, questions or concerns. Please see addendum below with additional recommendation from my supervising physician. I spent a total of 60 minutes on the date of service in review of patient's record, and previously obtained information in person and appropriate medical visit, discussion and education of plan, with patient and/or caregiver, placing orders for tests/referral/procedures as medically necessary and documentation of pertinent clinical information in patient's medical records for their visit today. Supervising Physician Co-Signing Physician Notes I saw and examined this patient with our nurse practitioner and agree with her assessment and plan. Clinical picture consistent with pancreatitis possibly related to retained CBD stone. Status postcholecystectomy several months ago. Had negative intraoperative cholangiogram. Afebrile no signs of toxicity or cholangitis. Abdominal exam does reveal some generalized abdominal tenderness no rebound or guarding. Recommend empiric antibiotics IV fluids n.p.o. and MRI MRCP to evaluate the biliary tree. History of Present Illness Reason for Consultation: pancreatitis, elevated tbili Requesting Physician: Connor Attending Physician: Connor History of Present Illness 58 year old male with history of diverticulitis, gallstones s/p CCY in September admitted through the ED w/ abd pain. GI was asked to evaluate for pancreatitis and elevated LFTs. Pt was seen and evaluated, chart reviewed. Family at bedside in the ED. Endorses midline abd pain, sharp, associated with nausea and vomiting x 2 episodes. Pain persisted sought ED care. Denies ETOH. No new medications. No supplements/vitamins. No AC CTAP 2023: Peripancreatic fat stranding is seen, findings are concerning for acute pancreatitis with no evidence of acute peripancreatic collection or necrosis. Allergies Allergy/AdvReac Type Severity Reaction Status Date / Time Penicillins Allergy Unknown CAN'T Verified 11/12/23 13:38 REMEMBER Home Medications Medication Instructions Recorded Confirmed Type melatonin 5 mg tablet 5 mg PO HS PRN Sleep 12/20/20 01/24/24 History tamsulosin 0.4 mg capsule 0.4 mg PO QAM #90 caps 02/27/23 01/24/24 Rx zolpidem 10 mg tablet 10 mg PO HS #90 tabs 10/24/23 01/24/24 Rx ibuprofen 1 - 2 tab PO DIRECTED PRN Pain 01/24/24 01/24/24 History sertraline 50 mg tablet 50 mg PO QAM 01/24/24 01/24/24 History Patient History Medical History (Updated 01/24/24 @ 12:35 by Prashant Craig PA-C) Acute kidney injury Acute cholecystitis History of kidney stones reason for flomax History of pulmonary embolism hx of ~2017 --was on blood thinners, then stopped Tubular adenoma of colon Surgical History Hx laparoscopic cholecystectomy (09/29/23) Laparoscopic Cholecystectomy with cholangiogram(Not Applicable) - Ramone Mayers MD, FACS History of colonoscopy History of tonsillectomy and adenoidectomy History of wisdom tooth extraction H/O right wrist surgery ligament repair at [facility] Family History Grandmother Diabetes Grandfather Diabetes Father Stroke Other No family history of adverse response to anesthesia Social History Smoking Status: Never smoker Second Hand Exposure: No; Do You Dip or Chew Tobacco: No; Hx Alcohol Use: No Hx Substance Use: No Preferred Language: Ghanaian Communication Ability: Effective Visual Impairment: No Limitations Hearing Ability: Normal Screed Operator Required: No Beliefs That Will Affect Care: None marital status: Current Living Situation: Spouse current occupational status: employed 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 Physical Exam Constitutional: WD/WN, vitals as above Respiratory: normal respiratory effort, lungs clear to auscultation Cardiovascular: RRR, no murmur, no edema Gastrointestinal (Abdomen): Inspection/Auscultation: normal bowel sounds Percussion/Palpation: + abdomen tender and abdomen soft; no guarding, abdomen not rigid, no abdominal mass and no ascites Skin: no rashes, warm and dry Results & Data Vital Signs (Past 12 Hours) Vital Signs Temp Pulse Resp BP Pulse Ox O2 Del Method 01/24/24 11:49 63 01/24/24 10:26 69 20 97 Room Air 01/24/24 10:22 36.5 C 86 20 102/70 98 Room Air Laboratory Results 01/24/24 01/24/24 01/24/24 Range/Units Unknown 10:46 10:40 WBC 18.29 H (4.8-10.8) K/ul RBC 5.92 (4.70-6.10) M/uL Hgb 17.0 (14.0-18.0) g/dl POC Hgb 17.7 (14.0-18.0) g/dl Hct 52.3 H (42.0-52.0) % POC Hct 52 (42-52) % MCV 88.3 (80.0-100.0) fL MCH 28.7 (25.0-34.0) pg MCHC 32.5 (32.0-36.0) g/dL RDW Std Deviation 45.0 (36.4-46.3) fL RDW Coeff of [place] 13.9 (11.5-14.5) % Plt Count 224 (130-400) K/uL MPV 8.7 L (9.4-12.4) fL Immature Gran % (Auto) 0.6 % Neut % (Auto) 82.0 % Lymph % (Auto) 8.9 % [place] % (Auto) 8.1 % Eos % (Auto) 0.1 % Baso % (Auto) 0.3 % Neut # (Auto) 15.00 H (1.40-6.50) K/uL Lymph # (Auto) 1.63 (1.20-3.40) K/uL [place] # (Auto) 1.48 H (0.11-0.59) K/uL Eos # (Auto) 0.01 (0.00-0.50) K/uL Baso # (Auto) 0.06 (0.00-0.20) K/uL Immature Gran # (Auto) 0.11 (0.01-0.20) K/uL POC Sodium 139 (135-144) mmol/L Sodium 137 (136-145) mmol/L POC Potassium 4.5 (3.3-5.0) mmol/L Potassium 4.4 (3.5-5.1) mmol/L POC Chloride 104 (101-112) mmol/L Chloride 103 (98-107) mmol/L Carbon Dioxide 24 (21-32) mmol/L POC Total CO2 23 L (24-31) mmol/L Anion Gap 10 (3-11) POC Anion Gap 17.0 (16-25) mmol/L POC BUN 22 H (7-18) mg/dl BUN 21 (6-23) mg/dl Creatinine 1.43 H (0.6-1.4) mg/dl POC Creatinine 1.4 H (0.6-1.3) mg/dl Est Cr Clr Drug Dosing 63.7 ml/min Est GFR ( Amer) 62.1 ml/min Est GFR (Non-Af Amer) 53.6 ml/min BUN/Creatinine Ratio 14.7 (10-20) Glucose 110 H (70-99(Fasting)) mg/dl POC Glucose (other) 113 H (70-99) mg/dl Calcium 10.6 H (8.6-10.3) mg/dl POC Ioniz Calcium Kellie 1.25 (1.12-1.32) mmol/l Total Bilirubin 6.2 H (0.2-1.0) mg/dl AST 100 H (13-39) U/L ALT 219 H (7-52) U/L Alkaline Phosphatase 165 H (34-104) U/L Total Protein 7.8 (6.0-8.3) gm/dl Albumin 3.9 (3.4-5.0) gm/dl Globulin 3.9 (2.5-4.0) gm/dl Albumin/Globulin Ratio 1.0 (0.9-2) Triglycerides 64 (0-150) mg/dl Lipase 1623 H (11-82) U/L Urine Color Dark Yellow Urine Appearance Clear (Clear) Urine pH 5.5 (4.5-7.5) Ur Specific [place] 1.028 (1.000-1.030) Urine Protein 2+ H (Negative) Urine Glucose (UA) Negative (Negative) Urine Ketones Negative (Negative) Urine Blood 1+ H (Negative) Urine Nitrite Positive A (Negative) Urine Bilirubin 2+ H (Negative) Urine Urobilinogen Negative (Negative) Ur Leukocyte Esterase 1+ H (Negative) Urine WBC (Auto) 0-5 (0-5) /hpf Urine RBC (Auto) 3-5 H (0-2) /hpf U Hyaline Cast (Auto) 0-2 (0-2) /lpf U Epithel Cells (Auto) 0-2 (0-2) /hpf Urine Bacteria (Auto) None Seen (None Seen) Urine Mucus Present A (None Prsent) PG Care Time/CCT Total # of Minutes Spent Total Time Spent with Patient: Total time spent is greater than 50% in coordination of care (as documented) at patient's floor/unit and/or counseling patient: Coding Level of Care Code 07437 IN/OBS CONSULT LVL 4,60M Diagnoses Acute pancreatitis K85.90
[2024-01-24] MEDS ORDERED: LORazepam 0.5 MG in SYRINGE 0.25 ML IV STA (14:07)
[2024-01-24] MEDS ORDERED: LORazepam 1 MG/1 ML SYR ED Inj Use IV STA (14:22)
[2024-01-24] MEDS: PLASMA-LYTE A 1,000 ML IV SCH (14:27)
[2024-01-24] MEDS ORDERED: HYDROmorphone INJ 1 MG/ML SYRINGE IV PRN (16:05)
[2024-01-24] MEDS ORDERED: ONDANSETRON INJ 2 MG/ML 2 ML VIAL IV PRN (16:05)
[2024-01-24] MEDS: LORazepam 0.5 MG in SYRINGE 0.25 ML IV PRN (17:34)
--- NOTE | 2024-01-24 18:48 | Magnetic Resonance Report ---
MRCP CLINICAL HISTORY: Acute pancreatitis; bili 6.2 TECHNIQUE: Utilizing a 1.5 Cassie magnet and dedicated coil, multiplanar, multiecho imaging of the upp er abdomen was performed utilizing heavily T2 weighted pulsing sequences without IV contrast. COMPARISON STUDY: CT of the abdomen and pelvis January 24, 2024. FINDINGS: There is no intra or extrahepatic biliary ductal dilatation status post cholecystectomy. Th e common bile duct measures 5 mm in caliber. No common bile duct calculi are identified. Of note, a l jorge common channel is noted with abnormal junction of the pancreatic duct and common bile duct occurs outside the duodenal wall. There is focal narrowing of the distal common bile duct at the junction w ith the pancreatic duct. There is no pancreatic ductal dilatation. Moderate peripancreatic fluid is n oted. There are no peripancreatic fluid collections. A 1 cm T2 hyperintense segment 7 hepatic lesion is indeterminate although statistically benign. Multiple T2 hyperintense small renal lesions favor cy sts although are suboptimally assessed on this unenhanced exam. The caliber of visualized small and l arge bowel are normal. There is trace perihepatic ascites. IMPRESSION: 1. No biliary ductal dilatation status post cholecystectomy. No common bile duct calculi. 2. Abnormal junction of the pancreatic duct and common bile duct which appears outside the duodenal w all consistent with a long common channel with focal narrowing of the distal common bile duct. Long c ommon channel could predispose to pancreatitis. 3. Findings consistent with acute pancreatitis. No peripancreatic fluid collections. ACT 112: Negative or not required by law. Electronically signed by: Vicente Lam M.D. 01/24/2024 6:46 PM
[2024-01-24] MEDS ORDERED: MELATONIN 3 MG TAB PO PRN (19:29)
[2024-01-24] MEDS: ENOXAPARIN INJ 40 MG/0.4 ML SYR SQ SCH (19:51)
[2024-01-24] MEDS: ZOLPIDEM TARTRATE 5 MG TAB PO SCH (20:07)
[2024-01-24] MEDS: metroNIDAZOLE 500 MG/100 ML BAG IV SCH (20:07)
[2024-01-25 06:47] LABS: Basophils # (auto) 0.07 K/uL (0.00-0.20); Basophils % (auto) 0.4 %; Eosinophils # (auto) 0.06 K/uL (0.00-0.50); Eosinophils % (auto) 0.3 %; Hematocrit (blood only) 44.1 % (42.0-52.0); Hemoglobin 14.9 g/dl (14.0-18.0); Immature Granulocytes # (auto) 0.23 K/uL (0.01-0.20); Immature Granulocytes % (auto) 1.2 %; Lymphocytes # (auto) 1.73 K/uL (1.20-3.40); Lymphocytes % (auto) 8.7 %; Mean Corpuscular Hemoglobin 29.4 pg (25.0-34.0); Mean Corpuscular Hgb Conc 33.8 g/dL (32.0-36.0); Mean Platelet Volume 8.5 fL (9.4-12.4); Monocytes # (auto) 1.87 K/uL (0.11-0.59); Monocytes % (auto) 9.4 %; Neutrophils # (auto) 15.84 K/uL (1.40-6.50); Platelet Count 189 K/uL (130-400); RDW Coefficient of Variation 14.2 % (11.5-14.5); RDW Standard Deviation 45.6 fL (36.4-46.3); Red Blood Count 5.07 M/uL (4.70-6.10)
[2024-01-25 07:18] LABS: Albumin Globulin Ratio 0.9 (0.9-2); Albumin Level 3.2 gm/dl (3.4-5.0); BUN Creatinine Ratio 13.9 (10-20); Bilirubin,Total 2.7 mg/dl (0.2-1.0); Calcium 9.3 mg/dl (8.6-10.3); Creatinine Clr Calc Pharmacy 74.7 ml/min; Est GFR (African American) 75.3 ml/min; Est GFR (Non-African American) 64.9 ml/min; Globulin 3.4 gm/dl (2.5-4.0); Potassium 4.6 mmol/L (3.5-5.1); Total Protein 6.6 gm/dl (6.0-8.3)
[2024-01-25 08:12] LABS: INR 1.1 (0.9-1.1); Prothrombin Time 12.3 Seconds (9.0-12.0)
--- NOTE | 2024-01-25 08:58 | Hospitalist Progress Note ---
Date of Service January 25, 2024 Assessment & Plan (1) Acute pancreatitis: Plan: Transverse lower quadrant abdominal pain that began on Sunday 01/21 Leukocytosis at 18.29 with a neutrophil predominance; afebrile Lipase was 1623 on arrival Triglyceride levels WNL Elevated transaminase levels, elevated bili A/P CT revealed findings consistent with acute pancreatitis; no evidence of collection or necrosis Gastroenterology consulted MRCP ordered Plans for ERCP with Dr. Lee on Friday 01/26 N.p.o. on admission; p.o. medications held Fluid resuscitation with Plasma-Lyte at 200mL/hr x 4 L Please add on additional fluids on 01/24 Strict I&O monitoring Continue empiric ABX for biliary coverage Metronidazole + Rocephin IV antiemetics PRN IV pain control PRN A.m. CBC, CMP, mag, lipase Patient with significant response to IV resuscitation T. bili now 2.7 from 6.2 ALT now 118 from 219 AST now 32 from 100 Lipase now 404 from 1623 MRCP with no biliary ductal dilatation or common bile duct calculi. There is an abnormal junction of the pancreatic duct and common bile duct which appears outside the duodenal wall consistent with a long common channel with focal narrowing of the distal common bile duct. Findings are consistent with acute pancreatitis. There is no evidence of peripancreatic fluid collections. Plan on ERCP on Saturday Continues to be afebrile Continue fluid resuscitation with LR 200ml/hr for now (2mL/kg) as patient had good response I&O reviewed - patient positive 4.3 liters Pain is better controlled. No tachycardia. Respiratory rate is 18. BP is 128/80. Electrolytes are balanced. No acute renal failure. Will initiate clear liquid diet as tolerated (2) Acute kidney injury: Plan: Mild; creatinine 1.43 on arrival (baseline around 1.0) which is now improved to 1.2 to. BUN is 17 IVF as above Trend morning BMPs Plan Disposition: Admit to [facility] Full code Clear liquid diet as tolerated VTE PPx: Lovenox 40mg SQ q24h. Will hold Lovenox after tonight's dose for pending ERCP on Saturday Admission and Anticipated Discharge Date Admission Date: January 24, 2024 Supervising Physician Co-Signing Physician Notes CLARISSA Supervision Note: I did not personally see or examine the patient today, but I verified all sanchez points of CLARISSA Oconnor's assessment and plan with the following exceptions/additions: None Subjective Attending: Dr. Venegas This is a 58-year-old male admitted yesterday for acute pancreatitis. He was found to have elevated transaminase levels as well as elevated bilirubin. He had a leukocytosis of 18.29. Patient has been afebrile. Patient also found to have mild ALYSSA with a creatinine of 1.43. Patient admitted with support with fluid resuscitation with Plasma-Lyte at 200 mL an hour x 4 L. Empiric antibiotics were started for biliary coverage including metronidazole and Rocephin and are being continued. Plan is for ERCP on Saturday with gastroenterology. Review of labs this morning revealed a white blood cell count of 19.8. Hemoglobin hematocrit are stable. Electrolytes are balanced. Met with patient and his Shell. He is doing much better regarding pain. He is having urine output but no stool. No abdominal pain at this time. No fever or chills. Patient currently n.p.o. Requesting to advance diet. Patient denies pruritus. Review of Systems 2 Review of Systems: A total of 10 systems was reviewed and is negative other than as listed in the HPI Physical Exam 2 Physical Exam: GENERAL : No acute distress EYES: Positive scleral icterus, gaze conjugate NOSE: No evidence of epistaxis MOUTH: No lesions or candidiasis NECK: Supple LUNGS: CTA B/L, no wheezes, rales or rhonchi HEART: Regular, rate controlled ABDOMEN: Soft, NT, ND, BS Present EXTREMITIES: No LE edema, pedal pulses intact NEURO: A&OX3 Results & Data Results & Data Vital Signs (Past 12 Hours) Vital Signs Temp Pulse Resp BP Pulse Ox O2 Del Method 01/25/24 07:38 36.6 C 77 16 128/80 94 Room Air Laboratory Results 01/25/24 06:23 01/25/24 06:23 Diagnostic Findings Abdomen/Pelvis CT 01/24/24 10:37 CT abd pelvis IV con only CLINICAL HISTORY: lower abd pain TECHNIQUE: Helical axial images of the abdomen and pelvis were obtained and displayed. Automated dose lowering techniques and/or adjustment according to patient size were utilized for this exam. This exam was performed with intravenous contrast. CT DOSE: 1533.08 mGy.cm COMPARISON: Comparison is made to CT abdomen pelvis 09/27/2023 FINDINGS: Lower chest: Bibasilar atelectasis versus scarring is seen. Periesophageal lymph nodes are seen. Liver: Unremarkable. No focal lesions are seen. Gallbladder and biliary tree: Patient is status post cholecystectomy. Physiologic prominence of the biliary ducts is noted. Pancreas: Pancreatic edema and peripancreatic fat stranding is seen. Spleen: Unremarkable. Adrenals: Unremarkable. Kidneys and ureters: Cysts are seen. Bladder: Diffuse homogeneous wall thickening is seen. Reproductive organs: Prostatomegaly is seen. Bowel: Diverticulosis is seen without evidence of diverticulitis. Lymph nodes Retroperitoneal: Subcentimeter lymph nodes are noted. Pelvic: Unremarkable. Mesenteric: Unremarkable. Peritoneum: Fat stranding about the pylorus and pancreas noted. Trace ascites is seen about the liver. Vessels: Atherosclerotic calcifications are seen. Abdominal wall: Bilateral fat-containing inguinal hernias are seen. Bones: Degenerative changes in the visualized spine. IMPRESSION: Peripancreatic fat stranding is seen, findings are concerning for acute pancreatitis with no evidence of acute peripancreatic collection or necrosis. ACT 112: Negative or not required by law. Electronically signed by: Audi Kahn M.D. 01/24/2024 11:51 AM Cholangiopancreatography MRI 01/24/24 13:18 MRCP CLINICAL HISTORY: Acute pancreatitis; bili 6.2 TECHNIQUE: Utilizing a 1.5 Cassie magnet and dedicated coil, multiplanar, multiecho imaging of the upper abdomen was performed utilizing heavily T2 weighted pulsing sequences without IV contrast. COMPARISON STUDY: CT of the abdomen and pelvis January 24, 2024. FINDINGS: There is no intra or extrahepatic biliary ductal dilatation status post cholecystectomy. The common bile duct measures 5 mm in caliber. No common bile duct calculi are identified. Of note, a long common channel is noted with abnormal junction of the pancreatic duct and common bile duct occurs outside the duodenal wall. There is focal narrowing of the distal common bile duct at the junction with the pancreatic duct. There is no pancreatic ductal dilatation. Moderate peripancreatic fluid is noted. There are no peripancreatic fluid collections. A 1 cm T2 hyperintense segment 7 hepatic lesion is indeterminate although statistically benign. Multiple T2 hyperintense small renal lesions favor cysts although are suboptimally assessed on this unenhanced exam. The caliber of visualized small and large bowel are normal. There is trace perihepatic ascites. IMPRESSION: 1. No biliary ductal dilatation status post cholecystectomy. No common bile duct calculi. 2. Abnormal junction of the pancreatic duct and common bile duct which appears outside the duodenal wall consistent with a long common channel with focal narrowing of the distal common bile duct. Long common channel could predispose to pancreatitis. 3. Findings consistent with acute pancreatitis. No peripancreatic fluid collections. ACT 112: Negative or not required by law. Electronically signed by: Vicente Lam M.D. 01/24/2024 6:46 PM PG Care Time/CCT Total # of Minutes Spent Total Time Spent with Patient: Total time spent is greater than 50% in coordination of care (as documented) at patient's floor/unit and/or counseling patient:25 minutes over 2 visits. Second visit with patient and Coding Level of Care Code 73978 SUB INP/OBS CARE 1/25MIN History Problem Focused Exam Problem Focused Medical Decision Making Moderate Complexity Diagnoses Acute pancreatitis K85.90 Acute kidney injury N17.9 Time Spent (min) 25 Comment 25 minutes over 2 visits. Second visit with patient and
--- NOTE | 2024-01-25 09:20 | Gastroenterology Progress Note ---
Date of Service January 25, 2024 Assessment & Plan (1) Acute pancreatitis: Plan: Seems to be improving. LFT drop suggests possible passed gallstone. If he continues to improve could start clear liquids later today. If pain free tomorrow may forego ERCP until he declares a need with a second episode of pancreatitis. If still symptomatic would go ahead and do it. WBC is still significantly elevated so that may throw a wrench into our decision process. Admission and Anticipated Discharge Date Admission Date: January 24, 2024 Subjective Feeling better today. Pain about a 2 out of 10 as compared to 7 out of 10 on admit. MRCP shows "long common channel" but no stones. LFT's improved Physical Exam Physical Exam: Somewhat sleepy but feels better Constitutional: WD/WN, vitals as above Results & Data Vital Signs (Past 12 Hours) Vital Signs Temp Pulse Resp BP Pulse Ox O2 Del Method 01/25/24 07:38 36.6 C 77 16 128/80 94 Room Air (1) Acute pancreatitis Acute pancreatitis complication: unspecified Pancreatitis type: unspecified pancreatitis type Qualified Code(s): K85.90 - Acute pancreatitis without necrosis or infection, unspecified
[2024-01-25] MEDS: SERTRALINE HCL 50 MG TABLET PO SCH (11:15)
[2024-01-25] MEDS: HYDROmorphone INJ 0.5 MG/0.5 ML SYR IV PRN (11:15)
[2024-01-25] MEDS: TAMSULOSIN HCL 0.4 MG CAP PO SCH (11:15)
[2024-01-25] MEDS: cefTRIAXone SODIUM 2,000 MG/50 ML BAG IV SCH (12:16)
[2024-01-25] MEDS: LACTATED RINGER'S 1,000 ML IV SCH (12:55)
[2024-01-25] MEDS ORDERED: POLYETHYLENE (MIRALAX) 17 GM PACK PO PRN (14:20)
[2024-01-25] MEDS: DOCUSATE SODIUM 100 MG CAP PO SCH (14:53)
[2024-01-25] MEDS: SENNA 8.6 MG TAB PO SCH (20:10)
[2024-01-26 06:17] LABS: Basophils # (auto) 0.08 K/uL (0.00-0.20); Basophils % (auto) 0.5 %; Eosinophils # (auto) 0.23 K/uL (0.00-0.50); Eosinophils % (auto) 1.4 %; Hematocrit (blood only) 40.2 % (42.0-52.0); Hemoglobin 13.4 g/dl (14.0-18.0); Immature Granulocytes # (auto) 0.25 K/uL (0.01-0.20); Immature Granulocytes % (auto) 1.6 %; Lymphocytes # (auto) 2.28 K/uL (1.20-3.40); Lymphocytes % (auto) 14.4 %; Mean Corpuscular Hemoglobin 29.5 pg (25.0-34.0); Mean Corpuscular Hgb Conc 33.3 g/dL (32.0-36.0); Mean Corpuscular Volume 88.4 fL (80.0-100.0); Mean Platelet Volume 8.9 fL (9.4-12.4); Monocytes # (auto) 1.64 K/uL (0.11-0.59); Monocytes % (auto) 10.3 %; Neutrophils # (auto) 11.39 K/uL (1.40-6.50); Neutrophils % (auto) 71.8 %; Platelet Count 192 K/uL (130-400); RDW Coefficient of Variation 14.2 % (11.5-14.5); RDW Standard Deviation 45.8 fL (36.4-46.3); Red Blood Count 4.55 M/uL (4.70-6.10); White Blood Count 15.87 K/ul (4.8-10.8)
[2024-01-26 06:44] LABS: Albumin Globulin Ratio 0.9 (0.9-2); Albumin Level 2.9 gm/dl (3.4-5.0); BUN Creatinine Ratio 14.8 (10-20); Bilirubin,Total 1.3 mg/dl (0.2-1.0); Creatinine Clr Calc Pharmacy 74.7 ml/min; Est GFR (African American) 75.3 ml/min; Est GFR (Non-African American) 64.9 ml/min; Globulin 3.1 gm/dl (2.5-4.0); Potassium 4.1 mmol/L (3.5-5.1)
[2024-01-26 06:52] LABS: INR 1.1 (0.9-1.1); Prothrombin Time 11.7 Seconds (9.0-12.0)
[2024-01-26] MEDS: ACETAMINOPHEN 1,000 MG/100 ML VIAL IV PRN (09:57)
--- NOTE | 2024-01-26 10:26 | Gastroenterology Progress Note ---
Date of Service January 26, 2024 Assessment & Plan (1) Acute pancreatitis: Plan: Would advance diet today and see how he does. If he tolerates without pain he could possibly go home without ERCP this admit and consider one if he has another spell of pancreatitis. If he does not tolerate diet then he should proceed with testing. Admission and Anticipated Discharge Date Admission Date: January 24, 2024 Subjective Pain free today. Feels well. LFT's are improving. Physical Exam Constitutional: WD/WN, vitals as above Results & Data Vital Signs (Past 12 Hours) Vital Signs Temp Pulse Resp BP Pulse Ox O2 Del Method 01/26/24 10:20 37.2 C 01/26/24 09:47 38.2 C H 77 16 109/74 94 Room Air 01/26/24 07:21 36.8 C 70 16 137/83 96 Room Air (1) Acute pancreatitis Acute pancreatitis complication: unspecified Pancreatitis type: unspecified pancreatitis type Qualified Code(s): K85.90 - Acute pancreatitis without necrosis or infection, unspecified
--- NOTE | 2024-01-26 17:31 | Hospitalist Progress Note ---
Date of Service January 26, 2024 Assessment & Plan (1) Acute pancreatitis: Plan: Transverse lower quadrant abdominal pain that began on Sunday 01/21 Leukocytosis at 18.29 with a neutrophil predominance; afebrile Lipase was 1623 on arrival Triglyceride levels WNL Elevated transaminase levels, elevated bili A/P CT revealed findings consistent with acute pancreatitis; no evidence of collection or necrosis Gastroenterology consulted MRCP ordered Plans for ERCP with Dr. Lee on Friday 01/26 Patient with significant response to IV resuscitation T. bili now 1.3 from 2.7 from 6.2 ALT now 63 from 118 from 219 AST now 16 from 32 from 100 Lipase improved yesterday - 404 from 1623 MRCP with no biliary ductal dilatation or common bile duct calculi. There is an abnormal junction of the pancreatic duct and common bile duct which appears outside the duodenal wall consistent with a long common channel with focal narrowing of the distal common bile duct. Findings are consistent with acute pancreatitis. There is no evidence of peripancreatic fluid collections. Plan on ERCP on Saturday. However, it is unclear if anyone from will be scheduled here Saturday to do an ERCP. Patient currently on regular diet. Will make n.p.o. after midnight in the event that patient does not tolerate diet today Continues to be afebrile Decrease IV hydration to 100 mL/h I&O reviewed - patient positive 10.1 liters Pain is better controlled. No tachycardia. Electrolytes are balanced. No acute renal failure. If no ERCP is needed tomorrow, patient to be discharged home with outpatient follow-up with gastroenterology (2) Acute kidney injury: Plan: Now resolved. BUN 18, creatinine 1.22 IVF as above Trend morning BMPs Plan Disposition: Admit to [facility] Full code Clear liquid diet as tolerated VTE PPx: Lovenox 40mg SQ q24h. Will hold Lovenox after tonight's dose for pending ERCP on Saturday Admission and Anticipated Discharge Date Admission Date: January 24, 2024 Supervising Physician Co-Signing Physician Notes PA Supervision Note: I did not personally see or examine the patient today, but I verified all sanchez points of CLARISSA Oconnor's assessment and plan with the following exceptions/additions: None Subjective Attending: Dr. Venegas Patient considerably better today. Labs are normalizing. Fluids are now reduced from 200 mL an hour to 100 mL/h. Patient denies any pain. Some nausea yesterday but this is resolved. No fever or chills. Tolerating clear liquid diet. Review of Systems Review of Systems: A total of 10 systems was reviewed and is negative other than as listed in the HPI Physical Exam Physical Exam: GENERAL : No acute distress EYES: No icterus, gaze conjugate NOSE: No evidence of epistaxis MOUTH: No lesions or candidiasis NECK: Supple LUNGS: CTA B/L, no wheezes, rales or rhonchi HEART: Regular, rate controlled ABDOMEN: Soft, NT, ND, BS Present EXTREMITIES: No LE edema, pedal pulses intact NEURO: A&OX3 Results & Data Results & Data Vital Signs (Past 12 Hours) Vital Signs Temp Pulse Resp BP Pulse Ox O2 Del Method 01/26/24 14:48 36.7 C 67 16 114/74 93 Room Air 01/26/24 13:11 37.2 C 71 16 110/74 95 Room Air 01/26/24 10:20 37.2 C 01/26/24 09:47 38.2 C H 77 16 109/74 94 Room Air 01/26/24 07:21 36.8 C 70 16 137/83 96 Room Air PG Care Time/CCT Total # of Minutes Spent Total Time Spent with Patient: Total time spent is greater than 50% in coordination of care (as documented) at patient's floor/unit and/or counseling patient:25 minutes with patient and Coding Level of Care Code 03474 SUB INP/OBS CARE 1/25MIN Diagnoses Acute pancreatitis K85.90 Acute kidney injury N17.9 Time Spent (min) 25
[2024-01-27 07:29] VITALS: PULSE 71; RESP 19; TEMP 98.2; O2SAT 94
[2024-01-27 08:06] LABS: Basophils # (auto) 0.11 K/uL (0.00-0.20); Basophils % (auto) 0.6 %; Eosinophils # (auto) 0.28 K/uL (0.00-0.50); Eosinophils % (auto) 1.5 %; Hematocrit (blood only) 42.6 % (42.0-52.0); Hemoglobin 14.2 g/dl (14.0-18.0); Immature Granulocytes # (auto) 0.26 K/uL (0.01-0.20); Immature Granulocytes % (auto) 1.4 %; Lymphocytes # (auto) 2.97 K/uL (1.20-3.40); Lymphocytes % (auto) 15.9 %; Mean Corpuscular Hgb Conc 33.3 g/dL (32.0-36.0); Mean Corpuscular Volume 86.9 fL (80.0-100.0); Monocytes # (auto) 1.88 K/uL (0.11-0.59); Neutrophils # (auto) 13.22 K/uL (1.40-6.50); Neutrophils % (auto) 70.6 %; Platelet Count 254 K/uL (130-400); RDW Coefficient of Variation 14.2 % (11.5-14.5); RDW Standard Deviation 45.5 fL (36.4-46.3); White Blood Count 18.72 K/ul (4.8-10.8)
[2024-01-27 08:11] LABS: Albumin Globulin Ratio 0.9 (0.9-2); Albumin Level 2.9 gm/dl (3.4-5.0); BUN Creatinine Ratio 12.2 (10-20); Bilirubin,Total 0.9 mg/dl (0.2-1.0); Creatinine Clr Calc Pharmacy 79.2 ml/min; Est GFR (African American) 80.9 ml/min; Est GFR (Non-African American) 69.8 ml/min; Globulin 3.4 gm/dl (2.5-4.0); Potassium 3.8 mmol/L (3.5-5.1); Total Protein 6.3 gm/dl (6.0-8.3)
--- NOTE | 2024-01-27 09:51 | Gastroenterology Progress Note ---
Date of Service January 27, 2024 Assessment & Plan (1) Acute pancreatitis: Plan: 58 year old male s/p CCY for gallstones admitted with abdominal pain, nausea/vomiting, CT imaging concerning for acute pancreatitis but no evidence of fluid collection or necrosis. Tbili 6.2, AST 100, ALT 219, ALKP 165, lipase 1623. There is leukocytosis but no fever. MR w/o any biliary ductal dilation or CBD stone. His LFTs have normalized, symptoms have improved. Dr. Lee recommends cancelling ERCP today. No GI contraindication to diet/discharge. Educated on alarm symptoms and when to seek ED care. Will discuss with attending of EUS is needed as OP for MR report showing abnormal junction of the pancreatic duct and common bile duct which appears outside the duodenal wall consistent with a long common channel with focal narrowing of the distal common bile duct. Thank you for allowing us to participate in the care of this patient. Please call with any acute changes, questions or concerns. Please see addendum below with additional recommendation from my supervising physician. I spent a total of 55 minutes on the date of service in review of patient's record, and previously obtained information in person and appropriate medical visit, discussion and education of plan, with patient and/or caregiver, placing orders for tests/referral/procedures as medically necessary and documentation of pertinent clinical information in patient's medical records for their visit today. Admission and Anticipated Discharge Date Admission Date: January 24, 2024 Subjective Pt was seen and evaluated, chart reviewed. Feeling well. Abd pain resolved. No nausea, vomiting. Was tolerating oral intake yesterday. Was made NPO in the event ERCP was needed. Reviewed case with attending, MR negative, LFTs improved, symptoms improved. MRCP: No biliary ductal dilatation status post cholecystectomy. No common bile duct calculi. Abnormal junction of the pancreatic duct and common bile duct which appears outside the duodenal wall consistent with a long common channel with focal narrowing of the distal common bile duct. Long common channel could p redispose to pancreatitis.Findings consistent with acute pancreatitis. No peripancreatic fluid collections. Review of Systems Review of Systems: All other findings negative except as noted in HPI. Physical Exam Constitutional: WD/WN, vitals as above Respiratory: normal respiratory effort, lungs clear to auscultation Cardiovascular: RRR, no murmur, no edema Gastrointestinal (Abdomen): Inspection/Auscultation: normal bowel sounds Percussion/Palpation: abdomen soft; abdomen nontender, no abdominal mass and no ascites Skin: no rashes, warm and dry Results & Data Results & Data Vital Signs (Past 12 Hours) Vital Signs Temp Pulse Resp BP Pulse Ox O2 Del Method 01/27/24 07:29 36.8 C 71 19 141/85 H 94 Room Air Laboratory Results 01/27/24 Range/Units 07:00 WBC 18.72 H (4.8-10.8) K/ul RBC 4.90 (4.70-6.10) M/uL Hgb 14.2 (14.0-18.0) g/dl Hct 42.6 (42.0-52.0) % MCV 86.9 (80.0-100.0) fL MCH 29.0 (25.0-34.0) pg MCHC 33.3 (32.0-36.0) g/dL RDW Std Deviation 45.5 (36.4-46.3) fL RDW Coeff of Vero 14.2 (11.5-14.5) % Plt Count 254 (130-400) K/uL MPV 9.0 L (9.4-12.4) fL Immature Gran % (Auto) 1.4 % Neut % (Auto) 70.6 % Lymph % (Auto) 15.9 % [place] % (Auto) 10.0 % Eos % (Auto) 1.5 % Baso % (Auto) 0.6 % Neut # (Auto) 13.22 H (1.40-6.50) K/uL Lymph # (Auto) 2.97 (1.20-3.40) K/uL [place] # (Auto) 1.88 H (0.11-0.59) K/uL Eos # (Auto) 0.28 (0.00-0.50) K/uL Baso # (Auto) 0.11 (0.00-0.20) K/uL Immature Gran # (Auto) 0.26 H (0.01-0.20) K/uL Sodium 135 L (136-145) mmol/L Potassium 3.8 (3.5-5.1) mmol/L Chloride 105 (98-107) mmol/L Carbon Dioxide 21 (21-32) mmol/L Anion Gap 9 (3-11) BUN 14 (6-23) mg/dl Creatinine 1.15 (0.6-1.4) mg/dl Est Cr Clr Drug Dosing 79.2 ml/min Est GFR ( Amer) 80.9 ml/min Est GFR (Non-Af Amer) 69.8 ml/min BUN/Creatinine Ratio 12.2 (10-20) Glucose 80 (70-99(Fasting)) mg/dl Calcium 9.0 (8.6-10.3) mg/dl Total Bilirubin 0.9 (0.2-1.0) mg/dl AST 12 L (13-39) U/L ALT 39 (7-52) U/L Alkaline Phosphatase 98 (34-104) U/L Total Protein 6.3 (6.0-8.3) gm/dl Albumin 2.9 L (3.4-5.0) gm/dl Globulin 3.4 (2.5-4.0) gm/dl Albumin/Globulin Ratio 0.9 (0.9-2) Lipase 67 (11-82) U/L PG Care Time/CCT Total # of Minutes Spent Total Time Spent with Patient: Total time spent is greater than 50% in coordination of care (as documented) at patient's floor/unit and/or counseling patient: Coding Level of Care Code 49653 SUB INP/OBS CARE 3/50MIN Diagnoses Acute pancreatitis K85.90 Acute pancreatitis complication: unspecified Pancreatitis type: unspecified pancreatitis type (1) Acute pancreatitis Acute pancreatitis complication: unspecified Pancreatitis type: unspecified pancreatitis type Qualified Code(s): K85.90 - Acute pancreatitis without necro sis or infection, unspecified
--- NOTE | 2024-01-27 10:05 | Discharge Summary ---
Discharge Summary Date of Service January 27, 2024 Principal Dx & Hospital Course #1 = Principal Diagnosis (1) Acute pancreatitis: Patient presented to the ER on 01/23 with complaints of lower abdominal pain that began two days prior. He underwent a CTAP that was concerning for acute pancreatitis. 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 Long common channel could predispose to pancreatitis. GI was consulted and evaluated the patient. His original TB was 6.2 and day of discharge had return WNL. LFTs also elevated at time of admission but returned to normal on 01/26. Patient did have his diet advanced and was able to tolerate a solid low fat diet with no difficulties. His pain had resolved. GI had elected to not move forward with an ERCP and to follow up outpatient to discuss an EUS. WBC was elevated at 18, likely from inflammatory changes within the pancreas. He is to get a CBC and CMP in 1 week along with following up with his PCP. Tylenol prn for pain. (2) Acute kidney injury: Patient originally had elevated creatinine of 1.43 when he presented to ER. On 01/26 creatinine normalized to 1.15. Corrected w/ IVF. Plan Discussed discharge instructions with patient and at bedside. Admission HPI Per Admitting Provider Enzo is a 58-year-old male with PMH of anxiety, nephrolithiasis, and insomnia. He presented for transverse lower abdominal pain that began on Saturday evening into the morning of 01/22. The pain is currently located in his left lower quadrant and he rates it 6/10 at present; 8/10 at worst. Is a constant pain that he describes as sharp, stabbing with movements and dull/achy with rest. Laying flat exacerbates the pain, as well as hiccuping. He tried eating a pop tart this morning, and this did not exacerbate the pain. He has been tolerating fluids, but does note that he vomited twice yesterday. He has been taking ibuprofen at home, which somewhat helps. Remote history of [facility] admission in September 2023 for acute cholecystitis/sigmoid diverticulitis; s/p cholecystectomy. No history of prior pancreatitis or gallstones. He does have history of kidney stones. Last BM on Saturday. He is not passing gas to his knowledge. No recent change in diet. Patient denies smoking, tobacco use, recent alcohol use. He denies history of heavy alcohol use in the past. Patient's vitals are stable at time of admission. ED course: Metronidazole 500 mg IV Rocephin 2000 mg IV Morphine 4 mg IV Toradol 15 mg IV Zofran 4 mg IV NSS 1000 mL IV ROS: Patient endorses chills, night-sweats, BARNES, lower transverse abdominal pain, nausea, vomiting x 2 on , constipation, dark urine, Patient denies fever (patient is unsure as he did not check his temperature at home), dizziness, lightheadedness, chest pain, SOB, cough, hematemesis, diarrhea, burning with urination, dysuria, melena, blood in the urine/stool, new lower back pain. Discharge Exam Constitutional WD/WN, vitals as above Eyes PERRL, conjunctivae normal, anicteric sclerae Respiratory normal respiratory effort, lungs clear to auscultation Cardiovascular RRR, no murmur, no edema Gastrointestinal (Abdomen) normal bowel sounds, soft, nontender, no hepatosplenomegaly Psychiatric A+Ox3, euthymic affect Discharge Plan Discharge Items Patient Disposition: Home - Self-Care Reason For Visit: ACUTE PANCREATITIS, AWAITING ERCP Discharge Diagnosis: Acute pancreatitis Activity: Resume your previous activity Non-emergency contact: Primary Care Provider Call non-emergency contact if: you have any medication questions, your symptoms worsen and you have a fever Follow-up/Referrals: Ed Berumen DO [Primary Care Provider] - 02/03/24 10:30 am Diet: Low Fat Ambulatory Orders: Complete Blood Count with Diff (Timed) Timeframe: 20240203 Location: Determined by Patient Ordered By: Mary Pena Comprehensive Metabolic Panel (Routine) Timeframe: 20240203 Location: Determined by Patient Ordered By: Mary Pena Addtl Attending Provider Instructions: Mr. Smith, You were recently hospitalized following an episode of acute pancreatitis. Please see recommendations below regarding your discharge. 1. Please use Tylenol every 6 hours as needed for pain. 2. Please follow up outpatient with Gastroenterology at your appointment to be scheduled. 3. Please obtain lab work in 1 week to recheck your white blood cells and liver numbers. 4. Please resume your previous outpatient medications as prescribed. If you develop any worsening abdominal pain, fever, chills, chest pain, or shortness of breath please report back to the ER for further evaluation. Sincerely, Mary Pena PA-C Pending Studies at Discharge: No Stand-Alone Forms: My [facility], Smoking Cessation Medications and DC Order Prescriptions: Continued tamsulosin 0.4 mg capsule 0.4 mg PO QAM Qty: 90 3RF zolpidem 10 mg tablet 10 mg PO HS Qty: 90 0RF melatonin 5 mg Tablet 5 mg PO HS PRN (Reason: Sleep) ibuprofen 1 - 2 tab PO DIRECTED PRN (Reason: Pain) Rx Instructions: otc, unknown dose. sertraline 50 mg tablet 50 mg PO QAM Discharge Orders: Discharge Order (Routine); Ordered 01/27/24 Ordered By: Mary Aguayo/Other Patient Handouts: Understanding Pancreatitis, Anatomy of the Digestive System, Pancreatitis Acute Dc Admission Data Admit Date/Time: 01/24/24 14:15 Attending Provider: Issac Mauricio Admit Provider: Ac Blue Primary Care Provider: Ed Berumen Other Providers: cA Blue; Saji Lee I Other Interventions: Discharge Summary Assessment (RN) Last Done: 01/27/24 10:25 Hospital Stay Data Consultations 01/24/24 12:18 ED Decision to Admit Stat 01/24/24 12:21 Consult Gastroenterology Stat Procedures Performed Operation Date: 01/27/24 07:00 <No data on this case meets the specified criteria> Diagnostic Imagining Performed 01/24/24 10:37 CT abd pelvis IV con only Stat 01/24/24 13:18 MR MRCP Stat 01/27/24 [place] ERCP biliary ductal Routine Pending Results Patient Have Any Pending Studies at Discharge: No Discharge Instructions Given to Patient (Per Discharging Provider) Freddy Hernandez were recently hospitalized following an episode of acute pancreatitis. Please see recommendations below regarding your discharge. 1. Please use Tylenol every 6 hours as needed for pain. 2. Please follow up outpatient with Gastroenterology at your appointment to be scheduled. 3. Please obtain lab work in 1 week to recheck your white blood cells and liver numbers. 4. Please resume your previous outpatient medications as prescribed. If you develop any worsening abdominal pain, fever, chills, chest pain, or shortness of breath please report back to the ER for further evaluation. Sincerely, Mary Pena PA-C Total Time Total Time Spent Total Time Spent (In Minutes): 40 Total Time Includes: Examination of the Patient, Discharge Planning and Medication Reconciliation Coding Level of Care Code 35189 INP/OBS DISCH >30 MIN Diagnoses Acute pancreatitis K85.90 Acute kidney injury N17.9
[2024-01-27 10:35] VITALS: BP 112/77
== END 2024-01-27 10:58 | disposition home or self-care (01) | DRG 439 ==
LOC: ED 10:16 → 3N 14:15 → SUATTDRO 14:15 → 3N 14:56